=== PATIENT | male | born 1935 | race Caucasian/White ===

== ENCOUNTER 2017-01-12 10:54 | Inpatient (IN) | payer MEDICARE, BC ==
[2017-01-12] MEDS: Acetaminophen 500 MG Tab PO PRN (17:09)
--- NOTE | 2017-01-12 18:28 | PCM.HP ---
H&P History of Present Illness - General Date of Service: 01/12/17 Admit Problem/Dx: Admission Diagnosis/Problem Admission Diagnosis/Problem Weakness Source of Information: Patient, Old Records History Limitations: Reports: No Limitations - History of Present Illness Initial Comments - Free Text/Narative: This is an 81-year-old male patient was transferred down from [facility] due to MRSA in his left hip and blood. He's here for IV antibiotics and PT/OT. Apparently he was admitted at [facility] and transferred to [place]. A lucent areas on the left hip. During his hospitalization he had hematuria that 's resolved as of 2 days ago. He says he is doing better. He denies fevers, chills, chest pain, shortness of breath. He has some left hip pain. He says he has not been up in 5 days. Pain Pain Score (Numeric/FACES): 3 - Related Data Allergies/Adverse Reactions: Allergies Allergy/AdvReac Type Severity Reaction Status Date / Time No Known Allergies Allergy Verified 01/12/17 13:21 Home Medications: Home Meds Allopurinol [Zyloprim] 300 mg PO DAILY 01/12/17 [History] Aspirin [Halfprin] 81 mg PO DAILY 01/12/17 [History] Digoxin 250 mcg PO SUTUTHSA 01/12/17 [History] Digoxin 375 mcg PO MOWEFR 01/12/17 [History] Finasteride 5 mg PO DAILY 01/12/17 [History] Hydrochlorothiazide 50 mg PO DAILY 01/12/17 [History] Lisinopril [Prinivil] 40 mg PO DAILY 01/12/17 [History] Metoprolol Succinate [Toprol Xl] 100 mg PO DAILY 01/12/17 [History] Simvastatin [Zocor] 40 mg PO DAILY 01/12/17 [History] Terazosin [Hytrin] 5 mg PO BEDTIME 01/12/17 [History] Past Medical History HEENT History: Reports: Hard of Hearing Cardiovascular History: Reports: Afib, Heart Failure Genitourinary History: Reports: BPH Musculoskeletal History: Reports: Arthritis Endocrine/Metabolic History: Reports: Obesity/BMI 30+ Hematologic History: Reports: Blood Transfusion(s) - Infectious Disease History Infectious Disease History: Reports: Chicken Pox, Measles, Mumps - Past Surgical History HEENT Surgical History: Reports: Cataract Surgery Cardiovascular Surgical History: Reports: Other (See Below) Other Cardiovascular Surgeries/Procedures: Stent Musculoskeletal Surgical History: Reports: Hip Replacement, Shoulder Replacement Social & Family History - Family History Family Medical History: Noncontributory - Tobacco Use Smoking Status *Q: Former Smoker Used Tobacco, but Quit: Yes Month Tobacco Last Used: 30 years ago Second Hand Smoke Exposure: No - Caffeine Use Caffeine Use: Reports: Coffee - Recreational Drug Use Recreational Drug Use: No H&P Review of Systems - Review of Systems: Review Of Systems: See Below General: Reports: No Symptoms HEENT: Reports: No Symptoms Pulmonary: Reports: No Symptoms Cardiovascular: Reports: No Symptoms Gastrointestinal: Reports: No Symptoms Genitourinary: Reports: Hematuria. Denies: Dysuria, Frequency Musculoskeletal: Reports: Joint Swelling Skin: Reports: No Symptoms Psychiatric: Reports: No Symptoms Hematologic/Lymphatic: Reports: No Symptoms Immunologic: Reports: No Symptoms Exam - Exam Exam: See Below - Vital Signs Vital Signs: Last Vital Signs Temp 98.1 F 01/12/17 13:00 Pulse 82 01/12/17 13:00 Resp 18 01/12/17 13:00 BP 122/71 01/12/17 13:00 Pulse Ox 92 L 01/12/17 13:00 Weight: 226 lb - Exam General: Alert, Oriented, Cooperative HEENT: PERRLA, Posterior Pharynx Clear, TMs Clear Neck: Supple, Trachea Midline Lungs: Clear to Auscultation, Normal Respiratory Effort Cardiovascular: Regular Rate, Regular Rhythm, Normal S1, Normal S2. No: Irregular Rhythm, Systolic Murmur, Diastolic Murmur GI/Abdominal Exam: Normal Bowel Sounds, Soft, Non-Tender, No Organomegaly, No Distention, No Abnormal Bruit, No Mass Back Exam: Normal Inspection, Full Range of Motion Extremities: Normal Inspection, No Pedal Edema Skin: Warm, Dry, Intact. No: Rash, Petechia, Ecchymosis Neuro Extensive - Mental Status: Alert, Oriented x3, Normal Mood/Affect, Normal Cognition, Memory Intact Neuro Extensive - Motor, Sensory, Reflexes: No: Normal Gait Psychiatric: Alert, Normal Affect, Normal Mood *Q Meaningful Use (ADM) - VTE *Q VTE Criteria *Q: - Stroke *Q Stroke Criteria *Q: - AMI *Q AMI Criteria *Q: - Problem List (1) Prosthetic joint infection SNOMED Code(s): 468481025 ICD Code: T84.50XA - INFECT/INFLM REACTION DUE TO UNSP INT JOINT PROSTH, INIT Status: Acute Current Visit: Yes (2) Hematuria SNOMED Code(s): 18915261 ICD Code: R31.9 - HEMATURIA, UNSPECIFIED Status: Acute Current Visit: Yes (3) Atrial fibrillation SNOMED Code(s): 31794135 ICD Code: I48.91 - UNSPECIFIED ATRIAL FIBRILLATION Status: Acute Current Visit: Yes (4) Palliative care status SNOMED Code(s): 530016763 ICD Code: Z51.5 - ENCOUNTER FOR PALLIATIVE CARE Status: Acute Current Visit: Yes (5) MRSA (methicillin resistant Staphylococcus aureus) SNOMED Code(s): 058099241 ICD Code: A49.02 - METHICILLIN RESIS STAPH INFECTION, UNSP SITE Status: Acute Current Visit: Yes Problem List Initiated/Reviewed/Updated: Yes Orders Last 24hrs: Active Orders 24 hr Category Date Time Status Patient Status [ADT] Routine ADT 01/12/17 10:57 Active Up ad Loretta [RC] ASDIRECTED Care 01/12/17 14:03 Active OT Evaluation and Treatment [CONS] Routine Cons 01/12/17 10:57 Active PT Evaluation and Treatment [CONS] Routine Cons 01/12/17 10:57 Active Low Sodium [Sodium Restricted Diet] [DIET] Diet 01/12/17 Dinner Active CBC WITH AUTO DIFF [HEME] WEEKLY Lab 02/05/17 06:00 Ordered CBC WITH AUTO DIFF [HEME] WEEKLY Lab 01/15/17 06:00 Ordered CBC WITH AUTO DIFF [HEME] WEEKLY Lab 01/22/17 06:00 Ordered CBC WITH AUTO DIFF [HEME] WEEKLY Lab 01/29/17 06:00 Ordered CREATINE KINASE,CK [CHEM] WEEKLY Lab 02/05/17 06:00 Ordered CREATINE KINASE,CK [CHEM] WEEKLY Lab 01/15/17 06:00 Ordered CREATINE KINASE,CK [CHEM] WEEKLY Lab 01/22/17 06:00 Ordered CREATINE KINASE,CK [CHEM] WEEKLY Lab 01/29/17 06:00 Ordered CREATININE W/GFR [CHEM] WEEKLY Lab 02/05/17 06:00 Ordered CREATININE W/GFR [CHEM] WEEKLY Lab 01/15/17 06:00 Ordered CREATININE W/GFR [CHEM] WEEKLY Lab 01/22/17 06:00 Ordered CREATININE W/GFR [CHEM] WEEKLY Lab 01/29/17 06:00 Ordered CRP [C-REACTIVE PROTEIN] [CHEM] WEEKLY Lab 02/05/17 06:00 Ordered CRP [C-REACTIVE PROTEIN] [CHEM] WEEKLY Lab 01/15/17 06:00 Ordered CRP [C-REACTIVE PROTEIN] [CHEM] WEEKLY Lab 01/22/17 06:00 Ordered CRP [C-REACTIVE PROTEIN] [CHEM] WEEKLY Lab 01/29/17 06:00 Ordered Acetaminophen [Tylenol Extra Strength] Med 01/12/17 16:46 Active 1,000 mg PO Q8H PRN Allopurinol [Zyloprim] Med 01/13/17 09:00 Active 300 mg PO DAILY Aspirin [Halfprin] Med 01/13/17 09:00 Active 81 mg PO DAILY DAPTOmycin [Cubicin] 625 mg Med 01/13/17 09:00 Active Sodium Chloride 0.9% [Normal Saline] 12.5 ml IVPUSH Q24H Digoxin [Lanoxin] Med 01/13/17 09:00 Active 250 mcg PO SuTuThSa@0900 Digoxin [Lanoxin] Med 01/15/17 09:00 Active 375 mcg PO MoWeFr@0900 Finasteride [Proscar] Med 01/13/17 09:00 Active 5 mg PO DAILY Heparin Sodium [Heparin Lock Flush 100 Units/ML] Med 01/12/17 21:15 Active 300 units FLUSH BID Heparin Sodium [Heparin Lock Flush 100 Units/ML] Med 01/12/17 21:15 Active 300 units FLUSH BID Hydrochlorothiazide Med 01/13/17 09:00 Active 50 mg PO DAILY Lisinopril [Prinivil] Med 01/13/17 09:00 Active 40 mg PO DAILY Metoprolol Succinate [Toprol XL] Med 01/13/17 09:00 Active 100 mg PO DAILY Terazosin [Hytrin] Med 01/12/17 21:00 Active 5 mg PO BEDTIME Code Status [Resuscitation Status] Routine Resus Stat 01/12/17 13:26 Ordered Medication Orders Acetaminophen (Tylenol Extra Strength) 1,000 mg PO Q8H PRN PRN Reason: Pain Last Admin: 01/12/17 17:09 Dose: 1,000 mg Allopurinol (Zyloprim) 300 mg PO DAILY [facility] Aspirin (Halfprin) 81 mg PO DAILY [facility] Digoxin (Lanoxin) 250 mcg PO SuTuThSa@0900 [facility] Digoxin (Lanoxin) 375 mcg PO MoWeFr@0900 [facility] Finasteride (Proscar) 5 mg PO DAILY [facility] Heparin Sodium (Porcine) (Heparin Lock Flush 100 Units/Ml) 300 units FLUSH BID [facility] Heparin Sodium (Porcine) (Heparin Lock Flush 100 Units/Ml) 300 units FLUSH BID [facility] Hydrochlorothiazide (Hydrochlorothiazide) 50 mg PO DAILY [facility] Daptomycin 625 mg/ Sodium (Chloride) 12.5 mls @ 325 mls/hr IVPUSH Q24H [facility] Stop: 02/05/17 11:00 Lisinopril (Prinivil) 40 mg PO DAILY [facility] Metoprolol Succinate (Toprol Xl) 100 mg PO DAILY [facility] Terazosin HCl (Hytrin) 5 mg PO BEDTIME [facility] Assessment/Plan Comment:: 1. Patient admitted for swing bed. 2. IV antibiotics per infectious disease. 3. PT/OT. 4. Continue current medications. 5. Up with assist. 6. Regular diet. Next I 7. Hold anticoagulation secondary to hematuria. 8. Recheck CBC in the a.m.
[2017-01-12] MEDS: Terazosin 5 MG Cap PO SCH (20:27)
[2017-01-12] MEDS ORDERED: Simvastatin 20 MG Tab PO SCH (21:00)
[2017-01-13] MEDS: Acetaminophen 500 MG Tab PO PRN ×2 (07:57→14:31)
[2017-01-13] MEDS: Metoprolol Succinate 100 MG Tab.ER PO SCH (08:00)
[2017-01-13] MEDS: Allopurinol 300 MG Tab PO SCH (08:00)
[2017-01-13] MEDS: Hydrochlorothiazide 25 MG Tab PO SCH (08:00)
[2017-01-13] MEDS: Digoxin 250 MCG Tab PO SCH (08:02)
[2017-01-13] MEDS: Finasteride 5 MG Tab PO SCH (08:02)
[2017-01-13] MEDS: Aspirin 81 MG Tab.EC PO SCH (08:03)
[2017-01-13] MEDS: SODIUM CHLORIDE 0.9% IVPUSH SCH (08:20)
[2017-01-13] MEDS: DAPTOMYCIN IVPUSH SCH (08:20)
[2017-01-13] MEDS: Terazosin 5 MG Cap PO SCH (20:08)
[2017-01-14] MEDS: Acetaminophen 500 MG Tab PO PRN ×3 (09:20→23:28)
[2017-01-14] MEDS: SODIUM CHLORIDE 0.9% IVPUSH SCH (09:55)
[2017-01-14] MEDS: DAPTOMYCIN IVPUSH SCH (09:55)
[2017-01-14] MEDS: Hydrochlorothiazide 25 MG Tab PO SCH (09:57)
[2017-01-14] MEDS: Finasteride 5 MG Tab PO SCH (09:57)
[2017-01-14] MEDS: Digoxin 250 MCG Tab PO SCH (09:57)
[2017-01-14] MEDS: Allopurinol 300 MG Tab PO SCH (09:57)
[2017-01-14] MEDS: Aspirin 81 MG Tab.EC PO SCH (09:57)
[2017-01-14] MEDS: Metoprolol Succinate 100 MG Tab.ER PO SCH (09:59)
[2017-01-14] MEDS: Terazosin 5 MG Cap PO SCH (20:15)
[2017-01-15] MEDS: Sodium Chloride 0.9% 10 ML Syringe FLUSH PRN (06:41)
[2017-01-15] MEDS: Acetaminophen 500 MG Tab PO PRN ×2 (08:51→17:06)
[2017-01-15] MEDS: Allopurinol 300 MG Tab PO SCH (08:57)
[2017-01-15] MEDS: Metoprolol Succinate 100 MG Tab.ER PO SCH (08:57)
[2017-01-15] MEDS: Digoxin 125 MCG Tab PO SCH (08:58)
[2017-01-15] MEDS: Aspirin 81 MG Tab.EC PO SCH (08:58)
[2017-01-15] MEDS: Hydrochlorothiazide 25 MG Tab PO SCH (08:58)
[2017-01-15] MEDS: Finasteride 5 MG Tab PO SCH (09:08)
[2017-01-15] MEDS: DAPTOMYCIN IVPUSH SCH (09:45)
[2017-01-15] MEDS: SODIUM CHLORIDE 0.9% IVPUSH SCH (09:45)
[2017-01-15] MEDS: Terazosin 5 MG Cap PO SCH (21:24)
[2017-01-16] MEDS: Acetaminophen 500 MG Tab PO PRN (09:08)
[2017-01-16] MEDS: Digoxin 250 MCG Tab PO SCH (09:09)
[2017-01-16] MEDS: Finasteride 5 MG Tab PO SCH (09:09)
[2017-01-16] MEDS: Hydrochlorothiazide 25 MG Tab PO SCH (09:09)
[2017-01-16] MEDS: Aspirin 81 MG Tab.EC PO SCH (09:10)
[2017-01-16] MEDS: Allopurinol 300 MG Tab PO SCH (09:10)
[2017-01-16] MEDS: Metoprolol Succinate 100 MG Tab.ER PO SCH (09:10)
[2017-01-16] MEDS: SODIUM CHLORIDE 0.9% IVPUSH SCH (09:20)
[2017-01-16] MEDS: DAPTOMYCIN IVPUSH SCH (09:20)
[2017-01-16] MEDS: Terazosin 5 MG Cap PO SCH (20:22)
[2017-01-17] MEDS: Acetaminophen 500 MG Tab PO PRN (08:28)
[2017-01-17] MEDS: Allopurinol 300 MG Tab PO SCH (08:29)
[2017-01-17] MEDS: Digoxin 125 MCG Tab PO SCH (08:29)
[2017-01-17] MEDS: Metoprolol Succinate 100 MG Tab.ER PO SCH (08:30)
[2017-01-17] MEDS: Finasteride 5 MG Tab PO SCH (08:30)
[2017-01-17] MEDS: Aspirin 81 MG Tab.EC PO SCH (08:30)
[2017-01-17] MEDS: Hydrochlorothiazide 25 MG Tab PO SCH (08:31)
[2017-01-17] MEDS: SODIUM CHLORIDE 0.9% IVPUSH SCH (09:00)
[2017-01-17] MEDS: DAPTOMYCIN IVPUSH SCH (09:00)
[2017-01-17] MEDS: Sodium Chloride 0.9% 10 ML Syringe FLUSH PRN (20:45)
[2017-01-17] MEDS: Terazosin 5 MG Cap PO SCH (20:50)
[2017-01-18] MEDS: Digoxin 250 MCG Tab PO SCH (08:25)
[2017-01-18] MEDS: Metoprolol Succinate 100 MG Tab.ER PO SCH (08:25)
[2017-01-18] MEDS: Aspirin 81 MG Tab.EC PO SCH (08:25)
[2017-01-18] MEDS: Hydrochlorothiazide 25 MG Tab PO SCH (08:26)
[2017-01-18] MEDS: Allopurinol 300 MG Tab PO SCH (08:26)
[2017-01-18] MEDS: Finasteride 5 MG Tab PO SCH (08:26)
[2017-01-18] MEDS: DAPTOMYCIN IVPUSH SCH (09:22)
[2017-01-18] MEDS: SODIUM CHLORIDE 0.9% IVPUSH SCH (09:22)
[2017-01-18] MEDS: Acetaminophen 500 MG Tab PO PRN (09:30)
[2017-01-18] MEDS: Terazosin 5 MG Cap PO SCH (20:54)
[2017-01-19] MEDS: Hydrochlorothiazide 25 MG Tab PO SCH (08:51)
[2017-01-19] MEDS: Aspirin 81 MG Tab.EC PO SCH (08:51)
[2017-01-19] MEDS: Digoxin 125 MCG Tab PO SCH (08:52)
[2017-01-19] MEDS: Metoprolol Succinate 100 MG Tab.ER PO SCH (08:54)
[2017-01-19] MEDS: Finasteride 5 MG Tab PO SCH (08:54)
[2017-01-19] MEDS: Allopurinol 300 MG Tab PO SCH (08:55)
[2017-01-19] MEDS: DAPTOMYCIN IVPUSH SCH (09:19)
[2017-01-19] MEDS: SODIUM CHLORIDE 0.9% IVPUSH SCH (09:19)
--- NOTE | 2017-01-19 11:16 | PN ---
DATE SEEN: 01/19/2017 SUBJECTIVE: eBka Fontenot is a young man, 85 years of age, seen today for review. Lives in [place]. Had a complicated septic left hip. On antibiotic therapies just once per day. Daptomycin 625 q.24 hours. Other medications reviewed and appropriate. Doing reasonably well. Pain is controlled. PT/OT actively involved. LABORATORY STUDIES: Hemoglobin 7.5 and 8.0, 01/15, we will recheck hemoglobin today. Kidney function otherwise satisfactory. C-reactive protein of 8. OBJECTIVE: VITAL SIGNS: 95.7 kg, 37 degrees centigrade, O2 saturation 95%, blood pressure 112/70. GENERAL: In good spirits. NECK: Benign. Thyroid small. CHEST: Clear. HEART: Regular. ABDOMEN: Benign. ASSESSMENT: Septic left hip. PLAN: Medications, care and treatment appropriate, recheck hemoglobin, timing appropriate care. /[id number] MILLER/IZA
[2017-01-19] MEDS: Terazosin 5 MG Cap PO SCH (20:40)
[2017-01-19] MEDS: Acetaminophen 500 MG Tab PO PRN (20:57)
[2017-01-20] MEDS: Aspirin 81 MG Tab.EC PO SCH (08:11)
[2017-01-20] MEDS: Hydrochlorothiazide 25 MG Tab PO SCH (08:11)
[2017-01-20] MEDS: Digoxin 250 MCG Tab PO SCH (08:12)
[2017-01-20] MEDS: Metoprolol Succinate 100 MG Tab.ER PO SCH (08:13)
[2017-01-20] MEDS: Finasteride 5 MG Tab PO SCH (08:13)
[2017-01-20] MEDS: Allopurinol 300 MG Tab PO SCH (08:14)
[2017-01-20] MEDS: SODIUM CHLORIDE 0.9% IVPUSH SCH (09:32)
[2017-01-20] MEDS: DAPTOMYCIN IVPUSH SCH (09:32)
--- NOTE | 2017-01-20 12:05 | PN ---
DATE SEEN: 01/20/2017 SUBJECTIVE: Beka Fontenot is an 81-year-old male, seen today for review. Has a complicated septic left hip joint. Present therapy includes daptomycin 625 mg q.24 hours. Adamant that staying here is his right choice. Pain is controlled. Ambulation has been good. LABORATORY STUDIES: Hemoglobin has risen from 7.5 to 8.8, indices otherwise satisfactory. OBJECTIVE: VITAL SIGNS: 36.7 degrees Fahrenheit, pulse 104, blood pressure 101/64, 16 is the respiration, O2 saturation 95%. CHEST: Clear. HEART: Regular. ABDOMEN: Benign. MUSCULOSKELETAL: Septic left hip joint. PLAN: Medications, care and treatment appropriate, home discharge under consideration. /[id number] MILLER/IZA
[2017-01-20] MEDS: Acetaminophen 500 MG Tab PO PRN ×2 (12:57→21:14)
[2017-01-20] MEDS: Terazosin 5 MG Cap PO SCH (21:11)
[2017-01-21] MEDS: Acetaminophen 500 MG Tab PO PRN ×2 (05:49→20:44)
[2017-01-21] MEDS: Aspirin 81 MG Tab.EC PO SCH (09:15)
[2017-01-21] MEDS: Hydrochlorothiazide 25 MG Tab PO SCH (09:17)
[2017-01-21] MEDS: Digoxin 250 MCG Tab PO SCH (09:17)
[2017-01-21] MEDS: Finasteride 5 MG Tab PO SCH (09:19)
[2017-01-21] MEDS: Metoprolol Succinate 100 MG Tab.ER PO SCH (09:20)
[2017-01-21] MEDS: Allopurinol 300 MG Tab PO SCH (09:20)
[2017-01-21] MEDS: SODIUM CHLORIDE 0.9% IVPUSH SCH (09:52)
[2017-01-21] MEDS: DAPTOMYCIN IVPUSH SCH (09:52)
--- NOTE | 2017-01-21 13:58 | PN ---
DATE SEEN: 01/21/2017 SUBJECTIVE: Beka Fontenot is an 81-year-old male admitted with sepsis. Remote left hip arthroplasty, had sepsis present. In for long-term antibiotic therapy. His present daptomycin 625 mg q.24 hours. Pain is controlled. Ambulation has been comfortable. Hemoglobin has risen steadily from 7.5 to 8 to 8.8. C-reactive protein, moderately elevated. Otherwise in good spirits. OBJECTIVE: VITAL SIGNS: 36.5, 113/59, 83 is the pulse, 16 is the respiration, O2 saturation 97%. GENERAL: Cooperative, conversant, in good spirits. NECK: Benign. Thyroid small. CHEST: Clear in all lung [place]. HEART: Regular without ectopy or murmur. ABDOMEN: Benign. EXTREMITIES: No pathology of left hip. ASSESSMENT: Infected left hip prosthesis. PLAN: Medications, care and treatment appropriate, IV antibiotics once per day. Home care and options given under consideration. /[id number] MILLER/IZA
[2017-01-21] MEDS: Terazosin 5 MG Cap PO SCH (20:40)
[2017-01-22] MEDS: Acetaminophen 500 MG Tab PO PRN (04:24)
[2017-01-22] MEDS: Sodium Chloride 0.9% 10 ML Syringe FLUSH PRN (07:08)
[2017-01-22] MEDS: DAPTOMYCIN IVPUSH SCH (09:39)
[2017-01-22] MEDS: SODIUM CHLORIDE 0.9% IVPUSH SCH (09:39)
[2017-01-22] MEDS: Hydrochlorothiazide 25 MG Tab PO SCH (09:40)
[2017-01-22] MEDS: Digoxin 125 MCG Tab PO SCH (09:40)
[2017-01-22] MEDS: Allopurinol 300 MG Tab PO SCH (09:41)
[2017-01-22] MEDS: Metoprolol Succinate 100 MG Tab.ER PO SCH (09:41)
[2017-01-22] MEDS: Aspirin 81 MG Tab.EC PO SCH (09:41)
[2017-01-22] MEDS: Finasteride 5 MG Tab PO SCH (09:42)
--- NOTE | 2017-01-22 11:42 | PN ---
DATE SEEN: 01/22/2017 SUBJECTIVE: Beka Fontenot is an 81-year-old male, on antibiotic therapy for MRSA. Timeframe: February 05. Lengthy discussion, geriatric social worker involved, about other alternatives. One dose of IV antibiotics. The patient is reluctant to consider otherwise. Of interest, hemoglobin, which had been trending upward 7.5, 8, 8, 8, now 7.6. Workup will be planned accordingly including iron, iron-binding capacity, protein electrophoresis, reticulocyte count. CRP has wandered downward from 8.2 to 5.6. PHYSICAL EXAMINATION: GENERAL: In good spirits. NECK: Benign. Thyroid small. CHEST: Clear. HEART: Regular. ABDOMEN: Benign. EXTREMITIES: No particular tenderness over the left hip. ASSESSMENT: Infected left hip joint. PLAN: Medications as appropriate, complementary care and well being. Workup of his anemia planned. /[id number] MILLER/IZA
[2017-01-22] MEDS: Terazosin 5 MG Cap PO SCH (21:23)
--- NOTE | 2017-01-23 15:52 | PN ---
DATE SEEN: 01/23/2017 SUBJECTIVE: Beka Fontenot is an 81-year-old male, in swing bed for intervention of complicated left hip infection, MRSA by report. Presently on daptomycin 625 mg q.6 hours. Had a visit with Orthopedics today, surgery upcoming and planned, expert from [place] coming up. Anemia still under observation; 7.5, 8, and 7.6. Diagnostic studies, i.e. serum iron, TIBC, reticulocyte count, serum protein electrophoresis, B12 and folate are pending. We will proceed accordingly, transfusion is under consideration. PLAN: Plan is for discharge and outpatient care with antibiotics under consideration as available. /[id number] MILLER/IZA
[2017-01-23] MEDS: SODIUM CHLORIDE 0.9% IVPUSH SCH (18:58)
[2017-01-23] MEDS: DAPTOMYCIN IVPUSH SCH (18:58)
[2017-01-23] MEDS: Hydrochlorothiazide 25 MG Tab PO SCH (18:59)
[2017-01-23] MEDS: Digoxin 250 MCG Tab PO SCH (18:59)
[2017-01-23] MEDS: Aspirin 81 MG Tab.EC PO SCH (18:59)
[2017-01-23] MEDS: Finasteride 5 MG Tab PO SCH (19:00)
[2017-01-23] MEDS: Allopurinol 300 MG Tab PO SCH (19:00)
[2017-01-23] MEDS: Metoprolol Succinate 100 MG Tab.ER PO SCH (19:00)
[2017-01-23] MEDS: Terazosin 5 MG Cap PO SCH (20:33)
[2017-01-24] MEDS: Sodium Chloride 0.9% 10 ML Syringe FLUSH PRN ×5 (08:49→12:11)
[2017-01-24] MEDS: DAPTOMYCIN IVPUSH SCH (08:49)
[2017-01-24] MEDS: SODIUM CHLORIDE 0.9% IVPUSH SCH (08:49)
[2017-01-24] MEDS: Hydrochlorothiazide 25 MG Tab PO SCH (09:00)
[2017-01-24] MEDS: Digoxin 125 MCG Tab PO SCH (09:00)
[2017-01-24] MEDS: Aspirin 81 MG Tab.EC PO SCH (09:00)
[2017-01-24] MEDS: Metoprolol Succinate 100 MG Tab.ER PO SCH (09:01)
[2017-01-24] MEDS: Finasteride 5 MG Tab PO SCH (09:01)
[2017-01-24] MEDS: Allopurinol 300 MG Tab PO SCH (09:02)
[2017-01-24] MEDS: Acetaminophen 500 MG Tab PO PRN (09:04)
[2017-01-24] MEDS ORDERED: Sodium Chloride 0.9% 250 ML IV SCH ×2 (10:30)
[2017-01-24] MEDS ORDERED: Furosemide 20 MG/2 ML VIAL IVPUSH ONE (10:45)
--- NOTE | 2017-01-24 14:38 | PN ---
DATE SEEN: 01/24/2017 Beka Fontenot is a young man, 85 years of age seen today for review. On prolonged antibiotic therapy of daptomycin 625 q.24 hours. Upon review, flushing of his port required b.i.d. indicating potential to call and to be cared for accordingly. Continue with present therapy. Anemia 7.6, had been 8.8. A workup for anemia in process. Laboratory studies were sent. In the mean time, we will give him 2 units of red blood cells, cooperative care and well being. Should do well in that regard. Recheck hemoglobin in the morning. IV Lasix between doses. /[id number] MILLER/IZA
[2017-01-24 17:06] LABS: UNSATURATED IRON BIND CAPACITY 161 ug/dL (112-347)
[2017-01-24] MEDS: Terazosin 5 MG Cap PO SCH (20:25)
[2017-01-25] MEDS: Sodium Chloride 0.9% 10 ML Syringe FLUSH PRN (06:26)
[2017-01-25] MEDS: Hydrochlorothiazide 25 MG Tab PO SCH (08:36)
[2017-01-25] MEDS: Aspirin 81 MG Tab.EC PO SCH (08:36)
[2017-01-25] MEDS: Digoxin 250 MCG Tab PO SCH (08:37)
[2017-01-25] MEDS: Metoprolol Succinate 100 MG Tab.ER PO SCH (08:37)
[2017-01-25] MEDS: Finasteride 5 MG Tab PO SCH (08:37)
[2017-01-25] MEDS: Allopurinol 300 MG Tab PO SCH (08:38)
[2017-01-25] MEDS: SODIUM CHLORIDE 0.9% IVPUSH SCH (10:01)
[2017-01-25] MEDS: DAPTOMYCIN IVPUSH SCH (10:01)
--- NOTE | 2017-01-25 11:46 | PN ---
DATE SEEN: 01/25/2017 SUBJECTIVE: Beka Fontenot is an 81-year-old male, in swing bed. He had a complicated MRSA infection of his left hip. Neurologic intervention, clot and sepsis noted. Hemoglobin fell from 7.5 to 8.8 to 7.6, transfused today; yesterday, wily to 8.7. Iron studies revealed low iron, normal B12, and no complicating issues. Doing otherwise well. He has had some intermittent nosebleeds. He is presently on heparin only for flush. Coagulation studies will be performed. He will start on ferrous gluconate 324 one p.o. t.i.d., complementary care and well being proceed accordingly. /[id number] MILLER/IZA
[2017-01-25] MEDS: Ferrous Gluconate 324 MG Tab PO SCH ×2 (13:47→20:22)
[2017-01-25] MEDS: Aloe Vera/Sodium Chloride Gel 14.1 GM Tube NAS PRN (16:27)
[2017-01-25] MEDS: Terazosin 5 MG Cap PO SCH (20:24)
[2017-01-26] MEDS: Aspirin 81 MG Tab.EC PO SCH (08:00)
[2017-01-26] MEDS: Ferrous Gluconate 324 MG Tab PO SCH ×2 (08:00→13:28)
[2017-01-26] MEDS: Metoprolol Succinate 100 MG Tab.ER PO SCH (08:01)
[2017-01-26] MEDS: Finasteride 5 MG Tab PO SCH (08:01)
[2017-01-26] MEDS: Hydrochlorothiazide 25 MG Tab PO SCH (08:01)
[2017-01-26] MEDS: Digoxin 125 MCG Tab PO SCH (08:01)
[2017-01-26] MEDS: Allopurinol 300 MG Tab PO SCH (08:02)
[2017-01-26] MEDS: Aloe Vera/Sodium Chloride Gel 14.1 GM Tube NAS PRN ×2 (08:08→11:59)
[2017-01-26] MEDS: Sodium Chloride 0.9% 10 ML Syringe FLUSH PRN (09:14)
[2017-01-26] MEDS: DAPTOMYCIN IVPUSH SCH (09:15)
[2017-01-26] MEDS: SODIUM CHLORIDE 0.9% IVPUSH SCH (09:15)
[2017-01-26] MEDS: Ferrous Sulfate 325 MG Tab PO SCH (21:18)
[2017-01-26] MEDS: Terazosin 5 MG Cap PO SCH (21:19)
[2017-01-27] MEDS: Finasteride 5 MG Tab PO SCH (09:32)
[2017-01-27] MEDS: Metoprolol Succinate 100 MG Tab.ER PO SCH (09:32)
[2017-01-27] MEDS: Aspirin 81 MG Tab.EC PO SCH (09:32)
[2017-01-27] MEDS: Hydrochlorothiazide 25 MG Tab PO SCH (09:34)
[2017-01-27] MEDS: Ferrous Sulfate 325 MG Tab PO SCH ×3 (09:34→21:42)
[2017-01-27] MEDS: Digoxin 250 MCG Tab PO SCH (09:34)
[2017-01-27] MEDS: Allopurinol 300 MG Tab PO SCH (09:35)
--- NOTE | 2017-01-27 09:44 | PCM.PRNOTE ---
- Free Text/Narrative Note: Mr. Joel had frequent nosebleeds over the last 2 days. I determined that the left nostril was was a note determine the exact area location. I discussed asked treatment options and suggested a Rhino Rocket he accepted the risks and benefits and this was placed with some inflammation with minimal difficulty. Is on antibiotics therefore no need for any extra antibiotics. I'll try nasal spray Afrin to help keep it moisturized and he also needs a stool softener.
[2017-01-27] MEDS: Sodium Chloride 0.9% 10 ML Syringe FLUSH PRN ×3 (09:47→09:52)
[2017-01-27] MEDS: DAPTOMYCIN IVPUSH SCH (09:49)
[2017-01-27] MEDS: SODIUM CHLORIDE 0.9% IVPUSH SCH (09:49)
[2017-01-27] MEDS: Oxymetazoline 0.05% Nasal Spray 15 ML Bottle NAS SCH (10:11)
[2017-01-27] MEDS: Bisacodyl 5 MG Tab PO PRN (12:55)
[2017-01-27] MEDS: Acetaminophen 500 MG Tab PO PRN (17:14)
[2017-01-27] MEDS: Terazosin 5 MG Cap PO SCH (21:44)
[2017-01-28] MEDS: Oxymetazoline 0.05% Nasal Spray 15 ML Bottle NAS SCH (08:17)
[2017-01-28] MEDS: Aspirin 81 MG Tab.EC PO SCH (08:18)
[2017-01-28] MEDS: Digoxin 250 MCG Tab PO SCH (08:18)
[2017-01-28] MEDS: Hydrochlorothiazide 25 MG Tab PO SCH (08:18)
[2017-01-28] MEDS: Ferrous Sulfate 325 MG Tab PO SCH ×3 (08:18→21:14)
[2017-01-28] MEDS: Metoprolol Succinate 100 MG Tab.ER PO SCH (08:19)
[2017-01-28] MEDS: Allopurinol 300 MG Tab PO SCH (08:19)
[2017-01-28] MEDS: Finasteride 5 MG Tab PO SCH (08:20)
[2017-01-28] MEDS: Sodium Chloride 0.9% 10 ML Syringe FLUSH PRN ×2 (08:24→08:25)
[2017-01-28] MEDS: DAPTOMYCIN IVPUSH SCH (08:25)
[2017-01-28] MEDS: SODIUM CHLORIDE 0.9% IVPUSH SCH (08:25)
[2017-01-28] MEDS: Acetaminophen 500 MG Tab PO PRN (09:17)
[2017-01-28] MEDS: Bisacodyl 5 MG Tab PO PRN (14:42)
[2017-01-28] MEDS: Terazosin 5 MG Cap PO SCH (21:15)
[2017-01-29] MEDS: Sodium Chloride 0.9% 10 ML Syringe FLUSH PRN ×2 (08:40→08:46)
[2017-01-29] MEDS: SODIUM CHLORIDE 0.9% IVPUSH SCH (08:46)
[2017-01-29] MEDS: DAPTOMYCIN IVPUSH SCH (08:46)
[2017-01-29] MEDS: Oxymetazoline 0.05% Nasal Spray 15 ML Bottle NAS SCH (08:50)
[2017-01-29] MEDS: Metoprolol Succinate 100 MG Tab.ER PO SCH (08:54)
[2017-01-29] MEDS: Ferrous Sulfate 325 MG Tab PO SCH ×3 (08:54→20:50)
[2017-01-29] MEDS: Aspirin 81 MG Tab.EC PO SCH (08:55)
[2017-01-29] MEDS: Hydrochlorothiazide 25 MG Tab PO SCH (08:55)
[2017-01-29] MEDS: Digoxin 125 MCG Tab PO SCH (08:55)
[2017-01-29] MEDS: Allopurinol 300 MG Tab PO SCH (08:56)
[2017-01-29] MEDS: Finasteride 5 MG Tab PO SCH (08:56)
[2017-01-29] MEDS: Bisacodyl 5 MG Tab PO PRN (09:01)
[2017-01-29] MEDS: Acetaminophen 500 MG Tab PO PRN ×2 (09:01→17:25)
--- NOTE | 2017-01-29 14:43 | PCM.SN ---
- Free Text/Narrative Note: Ihad topack the nose again for persistent bleeding. I have also put the ASA on hold
[2017-01-29] MEDS: Terazosin 5 MG Cap PO SCH (20:50)
[2017-01-30] MEDS: Ferrous Sulfate 325 MG Tab PO SCH ×3 (08:20→20:22)
[2017-01-30] MEDS: Digoxin 250 MCG Tab PO SCH (08:21)
[2017-01-30] MEDS: Hydrochlorothiazide 25 MG Tab PO SCH (08:21)
[2017-01-30] MEDS: Finasteride 5 MG Tab PO SCH (08:22)
[2017-01-30] MEDS: Metoprolol Succinate 100 MG Tab.ER PO SCH (08:22)
[2017-01-30] MEDS: Allopurinol 300 MG Tab PO SCH (08:23)
[2017-01-30] MEDS: Sodium Chloride 0.65% Nasal Spray 45 ML Bottle NAS PRN (08:26)
[2017-01-30] MEDS: Acetaminophen 500 MG Tab PO PRN (08:30)
[2017-01-30] MEDS: Bisacodyl 5 MG Tab PO PRN (08:32)
[2017-01-30] MEDS: DAPTOMYCIN IVPUSH SCH (08:34)
[2017-01-30] MEDS: Sodium Chloride 0.9% 10 ML Syringe FLUSH PRN ×3 (08:34→16:02)
[2017-01-30] MEDS: SODIUM CHLORIDE 0.9% IVPUSH SCH (08:34)
[2017-01-30] MEDS: Terazosin 5 MG Cap PO SCH (20:23)
[2017-01-31] MEDS: Aloe Vera/Sodium Chloride Gel 14.1 GM Tube NAS PRN (08:25)
[2017-01-31] MEDS: Bisacodyl 5 MG Tab PO SCH (08:26)
[2017-01-31] MEDS: Ferrous Sulfate 325 MG Tab PO SCH ×3 (08:27→20:25)
[2017-01-31] MEDS: Digoxin 125 MCG Tab PO SCH (08:28)
[2017-01-31] MEDS: Hydrochlorothiazide 25 MG Tab PO SCH (08:28)
[2017-01-31] MEDS: Finasteride 5 MG Tab PO SCH (08:29)
[2017-01-31] MEDS: Allopurinol 300 MG Tab PO SCH (08:29)
[2017-01-31] MEDS: Acetaminophen 500 MG Tab PO PRN (08:35)
[2017-01-31] MEDS: Metoprolol Succinate 100 MG Tab.ER PO SCH (08:44)
[2017-01-31] MEDS: Sodium Chloride 0.9% 10 ML Syringe FLUSH PRN (08:45)
[2017-01-31] MEDS: SODIUM CHLORIDE 0.9% IVPUSH SCH (08:45)
[2017-01-31] MEDS: DAPTOMYCIN IVPUSH SCH (08:45)
[2017-01-31] MEDS: Sodium Chloride 0.65% Nasal Spray 45 ML Bottle NAS PRN (12:45)
[2017-01-31] MEDS: Terazosin 5 MG Cap PO SCH (20:25)
[2017-02-01] MEDS: Digoxin 250 MCG Tab PO SCH (08:27)
[2017-02-01] MEDS: Ferrous Sulfate 325 MG Tab PO SCH ×3 (08:27→20:19)
[2017-02-01] MEDS: Hydrochlorothiazide 25 MG Tab PO SCH (08:27)
[2017-02-01] MEDS: Bisacodyl 5 MG Tab PO SCH (08:27)
[2017-02-01] MEDS: Allopurinol 300 MG Tab PO SCH (08:28)
[2017-02-01] MEDS: Metoprolol Succinate 100 MG Tab.ER PO SCH (08:28)
[2017-02-01] MEDS: Finasteride 5 MG Tab PO SCH (08:28)
[2017-02-01] MEDS: SODIUM CHLORIDE 0.9% IVPUSH SCH (09:08)
[2017-02-01] MEDS: DAPTOMYCIN IVPUSH SCH (09:08)
[2017-02-01] MEDS: Sodium Chloride 0.9% 10 ML Syringe FLUSH PRN (09:08)
[2017-02-01] MEDS: Terazosin 5 MG Cap PO SCH (20:16)
[2017-02-02] MEDS: Sodium Chloride 0.9% 10 ML Syringe FLUSH PRN ×2 (08:50→08:55)
[2017-02-02] MEDS: DAPTOMYCIN IVPUSH SCH (08:53)
[2017-02-02] MEDS: SODIUM CHLORIDE 0.9% IVPUSH SCH (08:53)
[2017-02-02] MEDS: Bisacodyl 5 MG Tab PO SCH (08:54)
[2017-02-02] MEDS: Ferrous Sulfate 325 MG Tab PO SCH ×3 (08:55→20:43)
[2017-02-02] MEDS: Finasteride 5 MG Tab PO SCH (08:56)
[2017-02-02] MEDS: Hydrochlorothiazide 25 MG Tab PO SCH (08:57)
[2017-02-02] MEDS: Digoxin 125 MCG Tab PO SCH (08:57)
[2017-02-02] MEDS: Allopurinol 300 MG Tab PO SCH (08:59)
[2017-02-02] MEDS: Metoprolol Succinate 100 MG Tab.ER PO SCH (12:30)
[2017-02-02] MEDS: Acetaminophen 500 MG Tab PO PRN (12:34)
[2017-02-02] MEDS: Terazosin 5 MG Cap PO SCH (20:43)
[2017-02-03] MEDS: DAPTOMYCIN IVPUSH SCH (08:44)
[2017-02-03] MEDS: Finasteride 5 MG Tab PO SCH (08:44)
[2017-02-03] MEDS: SODIUM CHLORIDE 0.9% IVPUSH SCH (08:44)
[2017-02-03] MEDS: Ferrous Sulfate 325 MG Tab PO SCH ×3 (08:44→21:30)
[2017-02-03] MEDS: Allopurinol 300 MG Tab PO SCH (08:44)
[2017-02-03] MEDS: Digoxin 250 MCG Tab PO SCH (08:44)
[2017-02-03] MEDS: Bisacodyl 5 MG Tab PO SCH (08:45)
[2017-02-03] MEDS: Hydrochlorothiazide 25 MG Tab PO SCH (08:45)
[2017-02-03] MEDS: Metoprolol Succinate 100 MG Tab.ER PO SCH (08:47)
[2017-02-03] MEDS: Terazosin 5 MG Cap PO SCH (21:30)
[2017-02-04] MEDS: SODIUM CHLORIDE 0.9% IVPUSH SCH (09:13)
[2017-02-04] MEDS: DAPTOMYCIN IVPUSH SCH (09:13)
[2017-02-04] MEDS: Bisacodyl 5 MG Tab PO SCH (09:32)
[2017-02-04] MEDS: Ferrous Sulfate 325 MG Tab PO SCH ×3 (09:33→20:03)
[2017-02-04] MEDS: Finasteride 5 MG Tab PO SCH (09:33)
[2017-02-04] MEDS: Allopurinol 300 MG Tab PO SCH (09:33)
[2017-02-04] MEDS: Sodium Chloride 0.9% 10 ML Syringe FLUSH PRN (11:57)
[2017-02-04] MEDS ORDERED: Hydrochlorothiazide 25 MG Tab PO SCH (12:53)
[2017-02-04] MEDS: Digoxin 250 MCG Tab PO SCH (13:11)
[2017-02-04] MEDS: Metoprolol Succinate 100 MG Tab.ER PO SCH (13:12)
[2017-02-04] MEDS: Hydrochlorothiazide 25 MG Tab PO SCH ×2 (13:50→13:54)
[2017-02-04] MEDS: Lisinopril 10 MG Tab PO SCH (13:54)
[2017-02-05] MEDS: DAPTOMYCIN IVPUSH SCH (09:27)
[2017-02-05] MEDS: SODIUM CHLORIDE 0.9% IVPUSH SCH (09:27)
[2017-02-05] MEDS: Sodium Chloride 0.9% 10 ML Syringe FLUSH PRN (09:35)
[2017-02-05] MEDS: Ferrous Sulfate 325 MG Tab PO SCH ×2 (09:52→16:54)
[2017-02-05] MEDS: Bisacodyl 5 MG Tab PO SCH (09:52)
[2017-02-05] MEDS: Digoxin 125 MCG Tab PO SCH (09:54)
[2017-02-05] MEDS: Finasteride 5 MG Tab PO SCH (09:54)
[2017-02-05] MEDS: Allopurinol 300 MG Tab PO SCH (09:55)
[2017-02-05] MEDS: Metoprolol Succinate 100 MG Tab.ER PO SCH (11:54)
[2017-02-05] MEDS: Hydrochlorothiazide 25 MG Tab PO SCH (11:55)
[2017-02-05] MEDS: Lisinopril 10 MG Tab PO SCH (11:58)
--- NOTE | 2017-02-05 12:14 | PCM.DCSUM1 ---
Discharge Summary - Hospital Course HPI Initial Comments: Pleasant 81-year-old gentleman who was admitted to swing bed for continued IV antibiotic therapy due to MRSA bacteremia. He was receiving daptomycin through PICC line for total 2 weeks. Infectious disease in [place] has been monitoring his labs weekly and he has done quite well. He did require a blood transfusion as his hemoglobin dropped down to 7. He received 2 units which brought this up to 9 and is stabilized. He is in working with PT OT and is ambulating quite well using a wheeled walker. States he felt much better and denies pain in the hip knee and ankle calves low back or buttocks. His blood pressure had started to run low over the last couple of days but it was noted that he was down about 31 pounds since first hospitalization. I did cut his medications in half to been noted in the chart. He has done quite well with this. He's been asymptomatic the whole time. He has good oral intake good urine output and bowel movements. He's not had any fevers or chills, he denies nausea, he's had no vomiting, he denies headache lightheadedness or dizziness on standing he denies difficulty chewing or swallowing he denies any palpitations, chest pressure or pain, shoulder neck jaw or back pain, dyspnea with exertion, wheezing or productive cough. Tells me he is ready to go home as he misses his dog. He is sitting up in the bed unlabored breathing speak to me in complete sentences is alert oriented and very pleasant. His will be taking him home today. - Discharge Data Discharge Date: 02/05/17 Discharge Disposition: Home, W Home Health Agency 06 Condition: Good - Discharge Diagnosis/Problem(s) (1) MRSA bacteremia SNOMED Code(s): 50201961400193705 ICD Code: R78.81 - BACTEREMIA Status: Acute Priority: High Current Visit: Yes (2) Prosthetic joint infection SNOMED Code(s): 555071428 ICD Code: T84.50XA - INFECT/INFLM REACTION DUE TO UNSP INT JOINT PROSTH, INIT Status: Acute Priority: High Current Visit: Yes Problem Details: Right hip (3) Hypotension due to medication Status: Resolved Priority: High Current Visit: Yes (4) S/P PICC central line placement SNOMED Code(s): 031423345, 789477259, 484517472 ICD Code: Z95.828 - PRESENCE OF OTHER VASCULAR IMPLANTS AND GRAFTS Status: Resolved Current Visit: Yes Problem Details: right upper extremity (5) History of recent blood transfusion SNOMED Code(s): 254455002 ICD Code: Z92.89 - PERSONAL HISTORY OF OTHER MEDICAL TREATMENT Status: Acute Current Visit: Yes Problem Details: 01/24/2017 x 2 units PRBC. Hgb 7 up to 9 then back to 8.5 on discharge 02/05/2017 (6) Atrial fibrillation SNOMED Code(s): 42922755 ICD Code: I48.91 - UNSPECIFIED ATRIAL FIBRILLATION Status: Chronic Current Visit: Yes Problem Details: high dose digoxin dosing with normal lab on 02/04/2017 Qualifiers: Atrial fibrillation type: chronic Qualified Code(s): I48.2 - Chronic atrial fibrillation (7) Chronic anemia SNOMED Code(s): 975884171 ICD Code: D64.9 - ANEMIA, UNSPECIFIED Status: Chronic Current Visit: Yes (8) Hematuria SNOMED Code(s): 99185597 ICD Code: R31.9 - HEMATURIA, UNSPECIFIED Status: Resolved Current Visit: Yes Problem Details: sees urology (9) Palliative care status SNOMED Code(s): 716572409 ICD Code: Z51.5 - ENCOUNTER FOR PALLIATIVE CARE Status: Chronic Current Visit: Yes (10) MRSA (methicillin resistant Staphylococcus aureus) SNOMED Code(s): 218128010 ICD Code: A49.02 - METHICILLIN RESIS STAPH INFECTION, UNSP SITE Status: Chronic Current Visit: Yes - Patient Summary/Data Consults: Consultations 01/12/17 10:57 OT Evaluation and Treatment [CONS] Routine Please Evaluate and Treat. OT Reason for Consult: deconditioning This query below is only for informational purposes and is not editable. PT Evaluation and Treatment [CONS] Routine Please Evaluate and Treat. PT Reason for Consult: Strengthening This query below is only for informational purposes and is not editable. Hospital Course: Please see above history of present illness description - Patient Instructions Diet: Regular Diet as Tolerated Activity: Full Weight Bearing Showering/Bathing: May Shower Notify Provider of: Fever, Increased Pain, Swelling and Redness (at the prior IV site.), Drainage, Nausea and/or Vomiting - Discharge Plan Prescriptions/Med Rec: Ferrous Sulfate 325 mg PO TID #90 tablet Hydrochlorothiazide 25 mg PO DAILY #30 tablet Lisinopril [Prinivil] 10 mg PO DAILY #30 tablet Metoprolol Succinate [Toprol Xl] 100 mg PO DAILY #30 tab.sr.24h Sodium Chloride 0.65% [[place] Saline] 50 ml .XX DAILY PRN #1 bottle PRN Reason: dry nose Home Medications: Home Meds Allopurinol [Zyloprim] 300 mg PO DAILY 01/12/17 [History] Aspirin [Halfprin] 81 mg PO DAILY 01/12/17 [History] Digoxin 375 mcg PO MOWEFR 01/12/17 [History] Finasteride 5 mg PO DAILY 01/12/17 [History] Simvastatin [Zocor] 40 mg PO DAILY 01/12/17 [History] Terazosin [Hytrin] 5 mg PO BEDTIME 01/12/17 [History] Acetaminophen [Tylenol Extra Strength] 1,000 mg PO Q8H PRN tablet 02/05/17 [Rx] Aloe Vera/Sodium Chloride [[place] Saline Nasal Gel] 0 gm EDILIA QID PRN tube [Rx] Bisacodyl [Dulcolax] 10 mg PO DAILY tablet 02/05/17 [Rx] Digoxin [Lanoxin] 250 mcg PO SuTuThSa@0900 tablet 02/05/17 [Rx] Digoxin [Lanoxin] 375 mcg PO MoWeFr@0900 tablet 02/05/17 [Rx] Ferrous Sulfate 325 mg PO TID #90 tablet 02/05/17 [Rx] Hydrochlorothiazide 25 mg PO DAILY #30 tablet 02/05/17 [Rx] Lisinopril [Prinivil] 10 mg PO DAILY #30 tablet 02/05/17 [Rx] Metoprolol Succinate [Toprol Xl] 100 mg PO DAILY #30 tab.sr.24h 02/05/17 [Rx] Sodium Chloride 0.65% [[place] Saline] 50 ml .XX DAILY PRN #1 bottle 02/05/17 [Rx] - Discharge Summary/Plan Comment DC Time >30 min.: Yes Discharge Summary/Plan Comment: Pt will discharge to home with home health for continued strengthening, blood pressure monitoring and weights x 2 weeks. Already has follow up scheduled with Infectious Disease scheduled in [place]. Will make appointment PCP Dr. Simon MD in the next week to reviewed bp medication changes and to review hgb after blood transfusions as he is now placed on ferrous sulfate 324 mg tid. Pt agrees with above plan and will pick his medications up at [facility] in [place]. coming to pick him up. Total Discharge time: 60 min with > 50% spent face to face with patient examining hospital course, med changes, need for temporay home health and upcoming appointments. - General Info Date of Service: 02/05/17 Subjective Update: Pleasant male 81-year-old sitting at the edge of his bed fully dressed and "ready to go home ". I did see him ambulating with a wheeled walker unassisted without any difficulty. He was going at a pretty good pace with a stable gait and maneuvering the walker quite well. He did not appear to have any dyspnea or shortness of breath. His PICC line has been removed from the right upper extremity and he denies any pain tenderness redness or swelling. He denies any numbness or tingling distally. He has not had any repeat nosebleeds. Blood thinners been stopped. Functional Status: Reports: Tolerating Diet, Ambulating, Urinating - Review of Systems Systems Review Comment: For pertinent positives and negatives relevant to visit please see history of present illness as well as subjective. - Patient Data Vitals - Most Recent: Last Vital Signs Temp 97.8 F 02/05/17 08:27 Pulse 88 02/05/17 12:00 Resp 20 02/05/17 12:00 BP 122/60 02/05/17 12:00 Pulse Ox 95 02/05/17 08:27 Orthostatic Blood Pressure [ 124/68 Standing] Orthostatic Blood Pressure [ 124/64 Supine] Orthostatic Blood Pressure [ 134/64 Sitting] Weight - Most Recent: 88.904 kg Lab Results - Last 24 hrs: Laboratory Tests 01/13/17 01/15/17 01/15/17 Range/Units 08:25 06:40 06:40 WBC 5.9 5.2 (4.5-12.0) X10-3/uL RBC 2.40 L 2.61 L (4.30-5.75) x10(6)uL Hgb 7.5 L 8.0 L (11.5-15.5) g/dL Hct 22.2 L 23.9 L (30.0-51.3) % MCV 92.3 91.8 (80-96) fL MCH 31.2 30.6 (27.7-33.6) pg MCHC 33.8 33.3 (32.2-35.4) g/dL RDW 14.8 14.7 (11.5-15.5) % Plt Count 331 344 (125-369) X10(3)uL MPV 7.3 L 7.0 L (7.4-10.4) fL Neut % (Auto) 82.0 (46-82) % Lymph % (Auto) 9.8 L (13-37) % [place] % (Auto) 5.9 (4-12) % Eos % (Auto) 2 (1.0-5.0) % Baso % (Auto) 0 (0-2) % Reticulocyte % (Auto) (0.4-2.7) % Neut # (Auto) 4.9 (1.6-8.3) # Lymph # (Auto) 0.6 (0.6-5.0) # [place] # (Auto) 0.3 (0.0-1.3) # Eos # (Auto) 0.1 (0.0-0.8) # Baso # (Auto) 0.0 (0.0-0.2) # Add Manual Diff Yes Neutrophils % (Manual) 72 (46-82) % Band Neutrophils % 2 (0-6) % Lymphocytes % (Manual) 20 (13-37) % Monocytes % (Manual) 3 L (4-12) % Eosinophils % (Manual) 3 (0-5) % Absolute Retic (16-123) K/uL PT (8.7-11.1) INR (0.89-1.13) APTT (24.4-33.2) SECONDS Sodium (135-145) mmol/L Potassium (3.5-5.3) mmol/L Chloride (100-110) mmol/L Carbon Dioxide (21-32) mmol/L BUN (7-18) mg/dL Creatinine 1.2 (0.70-1.30) mg/dL Est Cr Clr Drug Dosing 49.00 mL/min Estimated GFR (MDRD) 58 L (>60) BUN/Creatinine Ratio (9-20) Glucose (80-116) mg/dL Calcium (8.6-10.2) mg/dL Iron (45-190) ug/dL TIBC (157-537) ug/dL Iron Saturation (15-55) % Unsaturated IBC (112-347) ug/dL Total Bilirubin (0.1-1.3) mg/dL AST (5-25) IU/L ALT (12-36) U/L Alkaline Phosphatase (56-112) IU/L Creatine Kinase 29 L (60-160) IU/L C-Reactive Protein (0.5-0.9) mg/dL Total Protein (6.0-8.0) g/dL Total Protein (PEP) (6.1-7.8) g/dL Albumin (3.2-4.6) g/dL Albumin % (PEP) (45.0-80.0) % Albumin (PEP) (3.3-4.8) g/dL Globulin g/dL Albumin/Globulin Ratio Xsuyl-4-Ynyrhjwih (0.1-0.4) g/dL Evtic-8-Iojlmkgob (%) (1.0-6.0) % Hecdw-9-Jhuszmgnx (0.5-1.1) g/dL Lkgwt-4-Vhrcvomfh (%) (6.0-17.0) % Vlhg-4-Baqmvukw (0.4-0.8) g/dL Ilnj-3-Ebxkfgjq (%) (5.0-13.0) % Vtia-4-Trrxlcnh (0.2-0.6) g/dL Yazh-5-Wvthzmck (%) (2.0-8.5) % Gamma Globulins (0.6-1.5) g/dL Gamma Globulins (%) (7.5-24.0) % PEP Interpretation Vitamin B12 (193-986) pg/mL Urine Color (YELLOW) Urine Appearance (CLEAR) Urine pH (5.0-6.5) Ur Specific [place] (1.010-1.025) Urine Protein (NEGATIVE) mg/dL Urine Glucose (UA) (NEGATIVE) mg/dL Urine Ketones (NEGATIVE) mg/dL Urine Occult Blood (NEGATIVE) Urine Nitrite (NEGATIVE) Urine Bilirubin (NEGATIVE) Urine Urobilinogen (NEGATIVE) mg/dL Ur Leukocyte Esterase (NEGATIVE) Urine RBC (0) Urine WBC (0) Ur Squamous Epith Cells (NS,R,O) Urine Bacteria (NS) Digoxin (0.9-2.0) ng/mL Blood Type Gel Antibody Screen Crossmatch 01/15/17 01/19/17 01/22/17 Range/Units 06:40 11:20 07:05 WBC 7.3 4.5 (4.5-12.0) X10-3/uL RBC 2.88 L 2.57 L (4.30-5.75) x10(6)uL Hgb 8.8 L 7.6 L (11.5-15.5) g/dL Hct 26.5 L 23.4 L (30.0-51.3) % MCV 92.2 91.0 (80-96) fL MCH 30.5 29.5 (27.7-33.6) pg MCHC 33.1 32.4 (32.2-35.4) g/dL RDW 15.1 14.8 (11.5-15.5) % Plt Count 314 219 (125-369) X10(3)uL MPV 7.2 L (7.4-10.4) fL Neut % (Auto) 67.7 (46-82) % Lymph % (Auto) 18.2 (13-37) % [place] % (Auto) 9.5 (4-12) % Eos % (Auto) 4 (1.0-5.0) % Baso % (Auto) 1 (0-2) % Reticulocyte % (Auto) (0.4-2.7) % Neut # (Auto) 3.1 (1.6-8.3) # Lymph # (Auto) 0.8 (0.6-5.0) # [place] # (Auto) 0.4 (0.0-1.3) # Eos # (Auto) 0.2 (0.0-0.8) # Baso # (Auto) 0.0 (0.0-0.2) # Add Manual Diff Neutrophils % (Manual) (46-82) % Band Neutrophils % (0-6) % Lymphocytes % (Manual) (13-37) % Monocytes % (Manual) (4-12) % Eosinophils % (Manual) (0-5) % Absolute Retic (16-123) K/uL PT (8.7-11.1) INR (0.89-1.13) APTT (24.4-33.2) SECONDS Sodium (135-145) mmol/L Potassium (3.5-5.3) mmol/L Chloride (100-110) mmol/L Carbon Dioxide (21-32) mmol/L BUN (7-18) mg/dL Creatinine (0.70-1.30) mg/dL Est Cr Clr Drug Dosing mL/min Estimated GFR (MDRD) (>60) BUN/Creatinine Ratio (9-20) Glucose (80-116) mg/dL Calcium (8.6-10.2) mg/dL Iron (45-190) ug/dL TIBC (157-537) ug/dL Iron Saturation (15-55) % Unsaturated IBC (112-347) ug/dL Total Bilirubin (0.1-1.3) mg/dL AST (5-25) IU/L ALT (12-36) U/L Alkaline Phosphatase (56-112) IU/L Creatine Kinase (60-160) IU/L C-Reactive Protein 8.2 H* (0.5-0.9) mg/dL Total Protein (6.0-8.0) g/dL Total Protein (PEP) (6.1-7.8) g/dL Albumin (3.2-4.6) g/dL Albumin % (PEP) (45.0-80.0) % Albumin (PEP) (3.3-4.8) g/dL Globulin g/dL Albumin/Globulin Ratio Hugco-6-Siriqauba (0.1-0.4) g/dL Uaakt-6-Zluqwcydf (%) (1.0-6.0) % Dxhnc-7-Vrsngjqmt (0.5-1.1) g/dL Zrest-9-Devowdiyv (%) (6.0-17.0) % Nfva-8-Zuvctqpq (0.4-0.8) g/dL Yopr-7-Fyfkwkmz (%) (5.0-13.0) % Zegx-4-Vabbrsmt (0.2-0.6) g/dL Abgv-7-Dygoprmj (%) (2.0-8.5) % Gamma Globulins (0.6-1.5) g/dL Gamma Globulins (%) (7.5-24.0) % PEP Interpretation Vitamin B12 (193-986) pg/mL Urine Color (YELLOW) Urine Appearance (CLEAR) Urine pH (5.0-6.5) Ur Specific [place] (1.010-1.025) Urine Protein (NEGATIVE) mg/dL Urine Glucose (UA) (NEGATIVE) mg/dL Urine Ketones (NEGATIVE) mg/dL Urine Occult Blood (NEGATIVE) Urine Nitrite (NEGATIVE) Urine Bilirubin (NEGATIVE) Urine Urobilinogen (NEGATIVE) mg/dL Ur Leukocyte Esterase (NEGATIVE) Urine RBC (0) Urine WBC (0) Ur Squamous Epith Cells (NS,R,O) Urine Bacteria (NS) Digoxin (0.9-2.0) ng/mL Blood Type Gel Antibody Screen Crossmatch 01/22/17 01/22/17 01/22/17 Range/Units 07:05 07:05 07:05 WBC (4.5-12.0) X10-3/uL RBC (4.30-5.75) x10(6)uL Hgb (11.5-15.5) g/dL Hct (30.0-51.3) % MCV (80-96) fL MCH (27.7-33.6) pg MCHC (32.2-35.4) g/dL RDW (11.5-15.5) % Plt Count (125-369) X10(3)uL MPV (7.4-10.4) fL Neut % (Auto) (46-82) % Lymph % (Auto) (13-37) % [place] % (Auto) (4-12) % Eos % (Auto) (1.0-5.0) % Baso % (Auto) (0-2) % Reticulocyte % (Auto) 2.4 (0.4-2.7) % Neut # (Auto) (1.6-8.3) # Lymph # (Auto) (0.6-5.0) # [place] # (Auto) (0.0-1.3) # Eos # (Auto) (0.0-0.8) # Baso # (Auto) (0.0-0.2) # Add Manual Diff Neutrophils % (Manual) (46-82) % Band Neutrophils % (0-6) % Lymphocytes % (Manual) (13-37) % Monocytes % (Manual) (4-12) % Eosinophils % (Manual) (0-5) % Absolute Retic 60 (16-123) K/uL PT (8.7-11.1) INR (0.89-1.13) APTT (24.4-33.2) SECONDS Sodium (135-145) mmol/L Potassium (3.5-5.3) mmol/L Chloride (100-110) mmol/L Carbon Dioxide (21-32) mmol/L BUN (7-18) mg/dL Creatinine 1.2 (0.70-1.30) mg/dL Est Cr Clr Drug Dosing 49.00 mL/min Estimated GFR (MDRD) 58 L (>60) BUN/Creatinine Ratio (9-20) Glucose (80-116) mg/dL Calcium (8.6-10.2) mg/dL Iron (45-190) ug/dL TIBC (157-537) ug/dL Iron Saturation (15-55) % Unsaturated IBC (112-347) ug/dL Total Bilirubin (0.1-1.3) mg/dL AST (5-25) IU/L ALT (12-36) U/L Alkaline Phosphatase (56-112) IU/L Creatine Kinase 52 L (60-160) IU/L C-Reactive Protein 5.6 H* (0.5-0.9) mg/dL Total Protein (6.0-8.0) g/dL Total Protein (PEP) (6.1-7.8) g/dL Albumin (3.2-4.6) g/dL Albumin % (PEP) (45.0-80.0) % Albumin (PEP) (3.3-4.8) g/dL Globulin g/dL Albumin/Globulin Ratio Wurbe-4-Kexyqjckk (0.1-0.4) g/dL Ngwzs-3-Ceswebvqq (%) (1.0-6.0) % Ixlxl-5-Uyukqdovz (0.5-1.1) g/dL Orucc-4-Ysidspeyk (%) (6.0-17.0) % Uply-2-Lvzkebuc (0.4-0.8) g/dL Cssb-1-Dndvdljy (%) (5.0-13.0) % Ivnh-1-Qudnifci (0.2-0.6) g/dL Lfan-3-Pxntymjp (%) (2.0-8.5) % Gamma Globulins (0.6-1.5) g/dL Gamma Globulins (%) (7.5-24.0) % PEP Interpretation Vitamin B12 (193-986) pg/mL Urine Color (YELLOW) Urine Appearance (CLEAR) Urine pH (5.0-6.5) Ur Specific [place] (1.010-1.025) Urine Protein (NEGATIVE) mg/dL Urine Glucose (UA) (NEGATIVE) mg/dL Urine Ketones (NEGATIVE) mg/dL Urine Occult Blood (NEGATIVE) Urine Nitrite (NEGATIVE) Urine Bilirubin (NEGATIVE) Urine Urobilinogen (NEGATIVE) mg/dL Ur Leukocyte Esterase (NEGATIVE) Urine RBC (0) Urine WBC (0) Ur Squamous Epith Cells (NS,R,O) Urine Bacteria (NS) Digoxin (0.9-2.0) ng/mL Blood Type Gel Antibody Screen Crossmatch 01/22/17 01/22/17 01/23/17 Range/Units 07:05 11:18 06:10 WBC (4.5-12.0) X10-3/uL RBC (4.30-5.75) x10(6)uL Hgb (11.5-15.5) g/dL Hct (30.0-51.3) % MCV (80-96) fL MCH (27.7-33.6) pg MCHC (32.2-35.4) g/dL RDW (11.5-15.5) % Plt Count (125-369) X10(3)uL MPV (7.4-10.4) fL Neut % (Auto) (46-82) % Lymph % (Auto) (13-37) % [place] % (Auto) (4-12) % Eos % (Auto) (1.0-5.0) % Baso % (Auto) (0-2) % Reticulocyte % (Auto) (0.4-2.7) % Neut # (Auto) (1.6-8.3) # Lymph # (Auto) (0.6-5.0) # [place] # (Auto) (0.0-1.3) # Eos # (Auto) (0.0-0.8) # Baso # (Auto) (0.0-0.2) # Add Manual Diff Neutrophils % (Manual) (46-82) % Band Neutrophils % (0-6) % Lymphocytes % (Manual) (13-37) % Monocytes % (Manual) (4-12) % Eosinophils % (Manual) (0-5) % Absolute Retic (16-123) K/uL PT (8.7-11.1) INR (0.89-1.13) APTT (24.4-33.2) SECONDS Sodium (135-145) mmol/L Potassium (3.5-5.3) mmol/L Chloride (100-110) mmol/L Carbon Dioxide (21-32) mmol/L BUN (7-18) mg/dL Creatinine (0.70-1.30) mg/dL Est Cr Clr Drug Dosing mL/min Estimated GFR (MDRD) (>60) BUN/Creatinine Ratio (9-20) Glucose (80-116) mg/dL Calcium (8.6-10.2) mg/dL Iron 38 L (45-190) ug/dL TIBC 199 (157-537) ug/dL Iron Saturation 19 (15-55) % Unsaturated IBC 161 (112-347) ug/dL Total Bilirubin (0.1-1.3) mg/dL AST (5-25) IU/L ALT (12-36) U/L Alkaline Phosphatase (56-112) IU/L Creatine Kinase (60-160) IU/L C-Reactive Protein (0.5-0.9) mg/dL Total Protein (6.0-8.0) g/dL Total Protein (PEP) (6.1-7.8) g/dL Albumin (3.2-4.6) g/dL Albumin % (PEP) (45.0-80.0) % Albumin (PEP) (3.3-4.8) g/dL Globulin g/dL Albumin/Globulin Ratio Mhxuy-1-Dthzgnlfr (0.1-0.4) g/dL Evqfn-3-Uaxuiywzg (%) (1.0-6.0) % Alblr-4-Crscxkczl (0.5-1.1) g/dL Hntrn-8-Enrygpilf (%) (6.0-17.0) % Hjvg-6-Lgeoalke (0.4-0.8) g/dL Erxf-9-Vefoilid (%) (5.0-13.0) % Avrn-7-Ghelnzmv (0.2-0.6) g/dL Gfwq-5-Wctzfxbh (%) (2.0-8.5) % Gamma Globulins (0.6-1.5) g/dL Gamma Globulins (%) (7.5-24.0) % PEP Interpretation Vitamin B12 742 (193-986) pg/mL Urine Color Yellow (YELLOW) Urine Appearance Clear (CLEAR) Urine pH 7.0 H (5.0-6.5) Ur Specific [place] 1.010 (1.010-1.025) Urine Protein Negative (NEGATIVE) mg/dL Urine Glucose (UA) Normal (NEGATIVE) mg/dL Urine Ketones Negative (NEGATIVE) mg/dL Urine Occult Blood Moderate H (NEGATIVE) Urine Nitrite Negative (NEGATIVE) Urine Bilirubin Negative (NEGATIVE) Urine Urobilinogen Normal (NEGATIVE) mg/dL Ur Leukocyte Esterase Negative (NEGATIVE) Urine RBC 20-30 H (0) Urine WBC 0-5 (0) Ur Squamous Epith Cells Few H (NS,R,O) Urine Bacteria Few H (NS) Digoxin (0.9-2.0) ng/mL Blood Type Gel Antibody Screen Crossmatch 01/23/17 01/24/17 01/25/17 Range/Units 06:10 10:50 06:20 WBC (4.5-12.0) X10-3/uL RBC (4.30-5.75) x10(6)uL Hgb 8.7 L (11.5-15.5) g/dL Hct 25.6 L (30.0-51.3) % MCV (80-96) fL MCH (27.7-33.6) pg MCHC (32.2-35.4) g/dL RDW (11.5-15.5) % Plt Count (125-369) X10(3)uL MPV (7.4-10.4) fL Neut % (Auto) (46-82) % Lymph % (Auto) (13-37) % [place] % (Auto) (4-12) % Eos % (Auto) (1.0-5.0) % Baso % (Auto) (0-2) % Reticulocyte % (Auto) (0.4-2.7) % Neut # (Auto) (1.6-8.3) # Lymph # (Auto) (0.6-5.0) # [place] # (Auto) (0.0-1.3) # Eos # (Auto) (0.0-0.8) # Baso # (Auto) (0.0-0.2) # Add Manual Diff Neutrophils % (Manual) (46-82) % Band Neutrophils % (0-6) % Lymphocytes % (Manual) (13-37) % Monocytes % (Manual) (4-12) % Eosinophils % (Manual) (0-5) % Absolute Retic (16-123) K/uL PT (8.7-11.1) INR (0.89-1.13) APTT (24.4-33.2) SECONDS Sodium (135-145) mmol/L Potassium (3.5-5.3) mmol/L Chloride (100-110) mmol/L Carbon Dioxide (21-32) mmol/L BUN (7-18) mg/dL Creatinine (0.70-1.30) mg/dL Est Cr Clr Drug Dosing mL/min Estimated GFR (MDRD) (>60) BUN/Creatinine Ratio (9-20) Glucose (80-116) mg/dL Calcium (8.6-10.2) mg/dL Iron (45-190) ug/dL TIBC (157-537) ug/dL Iron Saturation (15-55) % Unsaturated IBC (112-347) ug/dL Total Bilirubin (0.1-1.3) mg/dL AST (5-25) IU/L ALT (12-36) U/L Alkaline Phosphatase (56-112) IU/L Creatine Kinase (60-160) IU/L C-Reactive Protein (0.5-0.9) mg/dL Total Protein (6.0-8.0) g/dL Total Protein (PEP) 5.9 L (6.1-7.8) g/dL Albumin (3.2-4.6) g/dL Albumin % (PEP) 40.9 L (45.0-80.0) % Albumin (PEP) 2.4 L (3.3-4.8) g/dL Globulin g/dL Albumin/Globulin Ratio Xslml-1-Fxwztpxcp 0.3 (0.1-0.4) g/dL Vjfru-8-Ijojgnsug (%) 5.7 (1.0-6.0) % Hnkbb-6-Yintwusch 1.0 (0.5-1.1) g/dL Cogwy-7-Wodgmjgek (%) 17.2 H (6.0-17.0) % Bgrv-8-Adegjucb 0.5 (0.4-0.8) g/dL Aaxf-7-Apyotgfl (%) 8.9 (5.0-13.0) % Hace-8-Lpocuxal 0.6 (0.2-0.6) g/dL Eofo-8-Bumklrdg (%) 10.1 H (2.0-8.5) % Gamma Globulins 1.0 (0.6-1.5) g/dL Gamma Globulins (%) 17.2 (7.5-24.0) % PEP Interpretation See below Vitamin B12 (193-986) pg/mL Urine Color (YELLOW) Urine Appearance (CLEAR) Urine pH (5.0-6.5) Ur Specific Mcfall (1.010-1.025) Urine Protein (NEGATIVE) mg/dL Urine Glucose (UA) (NEGATIVE) mg/dL Urine Ketones (NEGATIVE) mg/dL Urine Occult Blood (NEGATIVE) Urine Nitrite (NEGATIVE) Urine Bilirubin (NEGATIVE) Urine Urobilinogen (NEGATIVE) mg/dL Ur Leukocyte Esterase (NEGATIVE) Urine RBC (0) Urine WBC (0) Ur Squamous Epith Cells (NS,R,O) Urine Bacteria (NS) Digoxin (0.9-2.0) ng/mL Blood Type O POSITIVE Gel Antibody Screen Negative Crossmatch See Detail 01/25/17 01/25/17 01/29/17 Range/Units 16:58 16:58 08:35 WBC 6.6 5.4 (4.5-12.0) X10-3/uL RBC 3.13 L 3.07 L (4.30-5.75) x10(6)uL Hgb 9.7 L 9.2 L (11.5-15.5) g/dL Hct 28.3 L 27.4 L (30.0-51.3) % MCV 90.6 89.4 (80-96) fL MCH 31.1 30.1 (27.7-33.6) pg MCHC 34.4 33.7 (32.2-35.4) g/dL RDW 15.1 15.0 (11.5-15.5) % Plt Count 302 279 (125-369) X10(3)uL MPV 7.4 7.4 (7.4-10.4) fL Neut % (Auto) 74.6 73.4 (46-82) % Lymph % (Auto) 13.5 15.7 (13-37) % [place] % (Auto) 8.9 6.6 (4-12) % Eos % (Auto) 2 4 (1.0-5.0) % Baso % (Auto) 1 1 (0-2) % Reticulocyte % (Auto) (0.4-2.7) % Neut # (Auto) 4.9 4.0 (1.6-8.3) # Lymph # (Auto) 0.9 0.8 (0.6-5.0) # [place] # (Auto) 0.6 0.4 (0.0-1.3) # Eos # (Auto) 0.2 0.2 (0.0-0.8) # Baso # (Auto) 0.0 0.0 (0.0-0.2) # Add Manual Diff Neutrophils % (Manual) (46-82) % Band Neutrophils % (0-6) % Lymphocytes % (Manual) (13-37) % Monocytes % (Manual) (4-12) % Eosinophils % (Manual) (0-5) % Absolute Retic (16-123) K/uL PT 12.6 H (8.7-11.1) INR 1.24 H (0.89-1.13) APTT 29.1 (24.4-33.2) SECONDS Sodium (135-145) mmol/L Potassium (3.5-5.3) mmol/L Chloride (100-110) mmol/L Carbon Dioxide (21-32) mmol/L BUN (7-18) mg/dL Creatinine (0.70-1.30) mg/dL Est Cr Clr Drug Dosing mL/min Estimated GFR (MDRD) (>60) BUN/Creatinine Ratio (9-20) Glucose (80-116) mg/dL Calcium (8.6-10.2) mg/dL Iron (45-190) ug/dL TIBC (157-537) ug/dL Iron Saturation (15-55) % Unsaturated IBC (112-347) ug/dL Total Bilirubin (0.1-1.3) mg/dL AST (5-25) IU/L ALT (12-36) U/L Alkaline Phosphatase (56-112) IU/L Creatine Kinase (60-160) IU/L C-Reactive Protein (0.5-0.9) mg/dL Total Protein (6.0-8.0) g/dL Total Protein (PEP) (6.1-7.8) g/dL Albumin (3.2-4.6) g/dL Albumin % (PEP) (45.0-80.0) % Albumin (PEP) (3.3-4.8) g/dL Globulin g/dL Albumin/Globulin Ratio Voyvj-6-Hclmzajcy (0.1-0.4) g/dL Mrvzg-8-Ptnhbbcll (%) (1.0-6.0) % Qruvi-2-Fiyymmisy (0.5-1.1) g/dL Teqvh-0-Vkazkalft (%) (6.0-17.0) % Rcak-0-Unxeimiw (0.4-0.8) g/dL Digs-9-Upwomdmr (%) (5.0-13.0) % Btdq-6-Qkvffwdk (0.2-0.6) g/dL Ttee-4-Bvywhlsk (%) (2.0-8.5) % Gamma Globulins (0.6-1.5) g/dL Gamma Globulins (%) (7.5-24.0) % PEP Interpretation Vitamin B12 (193-986) pg/mL Urine Color (YELLOW) Urine Appearance (CLEAR) Urine pH (5.0-6.5) Ur Specific [place] (1.010-1.025) Urine Protein (NEGATIVE) mg/dL Urine Glucose (UA) (NEGATIVE) mg/dL Urine Ketones (NEGATIVE) mg/dL Urine Occult Blood (NEGATIVE) Urine Nitrite (NEGATIVE) Urine Bilirubin (NEGATIVE) Urine Urobilinogen (NEGATIVE) mg/dL Ur Leukocyte Esterase (NEGATIVE) Urine RBC (0) Urine WBC (0) Ur Squamous Epith Cells (NS,R,O) Urine Bacteria (NS) Digoxin (0.9-2.0) ng/mL Blood Type Gel Antibody Screen Crossmatch 01/29/17 01/29/17 02/04/17 Range/Units 08:35 08:35 11:55 WBC (4.5-12.0) X10-3/uL RBC (4.30-5.75) x10(6)uL Hgb (11.5-15.5) g/dL Hct (30.0-51.3) % MCV (80-96) fL MCH (27.7-33.6) pg MCHC (32.2-35.4) g/dL RDW (11.5-15.5) % Plt Count (125-369) X10(3)uL MPV (7.4-10.4) fL Neut % (Auto) (46-82) % Lymph % (Auto) (13-37) % [place] % (Auto) (4-12) % Eos % (Auto) (1.0-5.0) % Baso % (Auto) (0-2) % Reticulocyte % (Auto) (0.4-2.7) % Neut # (Auto) (1.6-8.3) # Lymph # (Auto) (0.6-5.0) # [place] # (Auto) (0.0-1.3) # Eos # (Auto) (0.0-0.8) # Baso # (Auto) (0.0-0.2) # Add Manual Diff Neutrophils % (Manual) (46-82) % Band Neutrophils % (0-6) % Lymphocytes % (Manual) (13-37) % Monocytes % (Manual) (4-12) % Eosinophils % (Manual) (0-5) % Absolute Retic (16-123) K/uL PT (8.7-11.1) INR (0.89-1.13) APTT (24.4-33.2) SECONDS Sodium (135-145) mmol/L Potassium (3.5-5.3) mmol/L Chloride (100-110) mmol/L Carbon Dioxide (21-32) mmol/L BUN (7-18) mg/dL Creatinine 1.2 (0.70-1.30) mg/dL Est Cr Clr Drug Dosing 49.00 mL/min Estimated GFR (MDRD) 58 L (>60) BUN/Creatinine Ratio (9-20) Glucose (80-116) mg/dL Calcium (8.6-10.2) mg/dL Iron (45-190) ug/dL TIBC (157-537) ug/dL Iron Saturation (15-55) % Unsaturated IBC (112-347) ug/dL Total Bilirubin (0.1-1.3) mg/dL AST (5-25) IU/L ALT (12-36) U/L Alkaline Phosphatase (56-112) IU/L Creatine Kinase 120 (60-160) IU/L C-Reactive Protein 3.7 H* (0.5-0.9) mg/dL Total Protein (6.0-8.0) g/dL Total Protein (PEP) (6.1-7.8) g/dL Albumin (3.2-4.6) g/dL Albumin % (PEP) (45.0-80.0) % Albumin (PEP) (3.3-4.8) g/dL Globulin g/dL Albumin/Globulin Ratio Qlmcy-6-Uhtxnzcis (0.1-0.4) g/dL Mqqjx-7-Fcdrmaqjt (%) (1.0-6.0) % Ipaeu-8-Yeikzmutv (0.5-1.1) g/dL Wepbk-4-Itkukeflt (%) (6.0-17.0) % Jicd-6-Ebwoaxtc (0.4-0.8) g/dL Vxsl-0-Jugrwtoc (%) (5.0-13.0) % Bqef-3-Xdfhegto (0.2-0.6) g/dL Txhp-3-Rsadbjqm (%) (2.0-8.5) % Gamma Globulins (0.6-1.5) g/dL Gamma Globulins (%) (7.5-24.0) % PEP Interpretation Vitamin B12 (193-986) pg/mL Urine Color (YELLOW) Urine Appearance (CLEAR) Urine pH (5.0-6.5) Ur Specific [place] (1.010-1.025) Urine Protein (NEGATIVE) mg/dL Urine Glucose (UA) (NEGATIVE) mg/dL Urine Ketones (NEGATIVE) mg/dL Urine Occult Blood (NEGATIVE) Urine Nitrite (NEGATIVE) Urine Bilirubin (NEGATIVE) Urine Urobilinogen (NEGATIVE) mg/dL Ur Leukocyte Esterase (NEGATIVE) Urine RBC (0) Urine WBC (0) Ur Squamous Epith Cells (NS,R,O) Urine Bacteria (NS) Digoxin 0.7 L (0.9-2.0) ng/mL Blood Type Gel Antibody Screen Crossmatch 02/05/17 02/05/17 02/05/17 Range/Units 07:10 07:10 07:10 WBC 5.9 (4.5-12.0) X10-3/uL RBC 2.92 L (4.30-5.75) x10(6)uL Hgb 8.5 L (11.5-15.5) g/dL Hct 26.4 L (30.0-51.3) % MCV 90.3 (80-96) fL MCH 29.1 (27.7-33.6) pg MCHC 32.3 (32.2-35.4) g/dL RDW 15.4 (11.5-15.5) % Plt Count 231 (125-369) X10(3)uL MPV 7.4 (7.4-10.4) fL Neut % (Auto) 66.2 (46-82) % Lymph % (Auto) 16.4 (13-37) % [place] % (Auto) 9.5 (4-12) % Eos % (Auto) 6 H (1.0-5.0) % Baso % (Auto) 2 (0-2) % Reticulocyte % (Auto) (0.4-2.7) % Neut # (Auto) 3.8 (1.6-8.3) # Lymph # (Auto) 1.0 (0.6-5.0) # [place] # (Auto) 0.6 (0.0-1.3) # Eos # (Auto) 0.4 (0.0-0.8) # Baso # (Auto) 0.1 (0.0-0.2) # Add Manual Diff Neutrophils % (Manual) (46-82) % Band Neutrophils % (0-6) % Lymphocytes % (Manual) (13-37) % Monocytes % (Manual) (4-12) % Eosinophils % (Manual) (0-5) % Absolute Retic (16-123) K/uL PT (8.7-11.1) INR (0.89-1.13) APTT (24.4-33.2) SECONDS Sodium 139 (135-145) mmol/L Potassium 4.0 (3.5-5.3) mmol/L Chloride 104 (100-110) mmol/L Carbon Dioxide 26 (21-32) mmol/L BUN 31 H (7-18) mg/dL Creatinine 1.1 (0.70-1.30) mg/dL Est Cr Clr Drug Dosing 53.46 mL/min Estimated GFR (MDRD) > 60 (>60) BUN/Creatinine Ratio 28.2 H (9-20) Glucose 88 (80-116) mg/dL Calcium 9.3 (8.6-10.2) mg/dL Iron (45-190) ug/dL TIBC (157-537) ug/dL Iron Saturation (15-55) % Unsaturated IBC (112-347) ug/dL Total Bilirubin 0.4 (0.1-1.3) mg/dL AST 29 H (5-25) IU/L ALT 34 (12-36) U/L Alkaline Phosphatase 105 (56-112) IU/L Creatine Kinase 72 (60-160) IU/L C-Reactive Protein 3.5 H* (0.5-0.9) mg/dL Total Protein 6.9 (6.0-8.0) g/dL Total Protein (PEP) (6.1-7.8) g/dL Albumin 2.5 L (3.2-4.6) g/dL Albumin % (PEP) (45.0-80.0) % Albumin (PEP) (3.3-4.8) g/dL Globulin 4.4 g/dL Albumin/Globulin Ratio 0.6 Bcenu-3-Yyvpmsfpv (0.1-0.4) g/dL Zxvgd-0-Pitzmveli (%) (1.0-6.0) % Ddfro-6-Ztlthsltc (0.5-1.1) g/dL Gecgn-6-Xhixzkusw (%) (6.0-17.0) % Ofuc-7-Isjbvvhg (0.4-0.8) g/dL Rxsg-9-Iecsbidd (%) (5.0-13.0) % Nyyc-6-Hufbmuln (0.2-0.6) g/dL Lhnk-0-Lawkmjtt (%) (2.0-8.5) % Gamma Globulins (0.6-1.5) g/dL Gamma Globulins (%) (7.5-24.0) % PEP Interpretation Vitamin B12 (193-986) pg/mL Urine Color (YELLOW) Urine Appearance (CLEAR) Urine pH (5.0-6.5) Ur Specific [place] (1.010-1.025) Urine Protein (NEGATIVE) mg/dL Urine Glucose (UA) (NEGATIVE) mg/dL Urine Ketones (NEGATIVE) mg/dL Urine Occult Blood (NEGATIVE) Urine Nitrite (NEGATIVE) Urine Bilirubin (NEGATIVE) Urine Urobilinogen (NEGATIVE) mg/dL Ur Leukocyte Esterase (NEGATIVE) Urine RBC (0) Urine WBC (0) Ur Squamous Epith Cells (NS,R,O) Urine Bacteria (NS) Digoxin (0.9-2.0) ng/mL Blood Type Gel Antibody Screen Crossmatch Med Orders - Current: Current Medications Acetaminophen (Tylenol Extra Strength) 1,000 mg PO Q8H PRN PRN Reason: Pain Last Admin: 02/02/17 12:34 Dose: 1,000 mg Allopurinol (Zyloprim) 300 mg PO DAILY [facility] Last Admin: 02/05/17 09:55 Dose: 300 mg Bisacodyl (Dulcolax) 10 mg PO DAILY [facility] Last Admin: 02/05/17 09:52 Dose: 10 mg Digoxin (Lanoxin) 250 mcg PO [id number]@0900 [facility] Last Admin: 02/04/17 13:11 Dose: 250 mcg Digoxin (Lanoxin) 375 mcg PO MoWeFr@0900 [facility] Last Admin: 02/05/17 09:54 Dose: 375 mcg Ferrous Sulfate (Ferrous Sulfate) 325 mg PO TID [facility] Last Admin: 02/05/17 09:52 Dose: 325 mg Finasteride (Proscar) 5 mg PO DAILY [facility] Last Admin: 02/05/17 09:54 Dose: 5 mg Heparin Sodium (Porcine) (Heparin Lock Flush 100 Units/Ml) 300 units FLUSH BID [facility] Last Admin: 02/05/17 09:53 Dose: Not Given Heparin Sodium (Porcine) (Heparin Lock Flush 100 Units/Ml) 300 units FLUSH BID [facility] Last Admin: 02/05/17 09:53 Dose: Not Given Heparin Sodium (Porcine) (Heparin Lock Flush 100 Units/Ml) 300 units FLUSH ASDIRECTED PRN PRN Reason: Keep Vein Open Last Admin: 02/04/17 11:58 Dose: 300 units Hydrochlorothiazide (Hydrochlorothiazide) 25 mg PO DAILY [facility] Last Admin: 02/05/17 11:55 Dose: 25 mg Sodium Chloride (Normal Saline) 250 mls @ 100 mls/hr IV ASDIRECTED [facility] Sodium Chloride (Normal Saline) 250 mls @ 100 mls/hr IV ASDIRECTED [facility] Lisinopril (Prinivil) 10 mg PO DAILY [facility] Last Admin: 02/05/17 11:58 Dose: 10 mg Metoprolol Succinate (Toprol Xl) 100 mg PO DAILY [facility] Last Admin: 02/05/17 11:54 Dose: 100 mg Sodium Chloride (Saline Flush) 10 ml FLUSH ASDIRECTED PRN PRN Reason: Keep Vein Open Last Admin: 02/05/17 09:35 Dose: 10 ml Sodium Chloride ([place] Saline Nasal Gel) 0 gm EDILIA QID PRN PRN Reason: DRYNESS Last Admin: 01/31/17 08:25 Dose: 1 applic Sodium Chloride ([place] Nasal [place]) 0 ml EDILIA BID PRN PRN Reason: Dryness Last Admin: 01/31/17 12:45 Dose: 1 spray Terazosin HCl (Hytrin) 5 mg PO BEDTIME [facility] Last Admin: 02/03/17 21:30 Dose: 5 mg Discontinued Medications Aspirin (Halfprin) 81 mg PO DAILY [facility] Last Admin: 01/29/17 08:55 Dose: 81 mg Bisacodyl (Dulcolax) 10 mg PO DAILY PRN PRN Reason: Constipation Last Admin: 01/30/17 08:32 Dose: 10 mg Ferrous Gluconate (Ferrous Gluconate) 324 mg PO TID [facility] Stop: 01/26/17 15:30 Last Admin: 01/26/17 13:28 Dose: 324 mg Furosemide (Lasix) 10 mg IVPUSH NOW ONE Stop: 01/24/17 10:46 Last Admin: 01/24/17 12:07 Dose: 10 mg Hydrochlorothiazide (Hydrochlorothiazide) 50 mg PO DAILY [facility] Last Admin: 02/04/17 13:50 Dose: Not Given Hydrochlorothiazide (Hydrochlorothiazide) 25 mg PO DAILY [facility] Daptomycin 625 mg/ Sodium (Chloride) 12.5 mls @ 325 mls/hr IVPUSH Q24H [facility] Stop: 02/05/17 11:00 Last Admin: 02/05/17 09:27 Dose: 325 mls/hr Lisinopril (Prinivil) 40 mg PO DAILY [facility] Last Admin: 02/04/17 13:50 Dose: Not Given Oxymetazoline HCl (Afrin Original 0.05% Nasal [place]) 0 ml EDILIA DAILY [facility] Last Admin: 01/29/17 08:50 Dose: 2 spray Simvastatin (Zocor) 40 mg PO BEDTIME [facility] - Exam Quality Assessment: Reports: Central Line/PICC (Site is healthy nontender no erythema and no warmth or swelling. No oozing. Right upper extremity.) General: Reports: Alert, Oriented, Cooperative, No Acute Distress HEENT: Reports: Mucous Membr. Moist/[place] Neck: Reports: Supple, Trachea Midline Lungs: Reports: Clear to Auscultation, Normal Respiratory Effort Cardiovascular: Reports: Regular Rate, No Murmurs, Irregular Rhythm GI/Abdominal Exam: Normal Bowel Sounds, Soft, Non-Tender Extremities: Normal Inspection. No: Non-Tender, Pedal Edema, Joint Swelling, Arm Pain, Deonte's Sign Skin: Reports: Warm, Dry Neurological: Reports: No New Focal Deficit Psy/Mental Status: Reports: Normal Affect, Normal Mood *Q Meaningful Use (DIS) - VTE *Q VTE Criteria *Q: - Stroke *Q Stroke Criteria *Q: - AMI *Q AMI Criteria *Q:
== END 2017-02-05 17:08 | disposition home health service (06) | DRG 949 ==
LOC: FB.MS 11:54
PROVIDERS: ADMIT Family Medicine; ATTEND Family Medicine
PROC: 30233N1 Transfusion of Nonautologous Red Blood Cells into Peripheral Vein, Percutaneous Approach (ICD-10-PCS; principal; 2017-01-24)
PROC: 2Y41X5Z Packing of Nasal Region using Packing Material (ICD-10-PCS; 2017-01-27)
DX: T84.50XD Infection and inflammatory reaction due to unspecified internal joint prosthesis, subsequent encounter (principal); R78.81 Bacteremia; M00.052 Staphylococcal arthritis, left hip; B95.62 Methicillin resistant Staphylococcus aureus infection as the cause of diseases classified elsewhere; Z51.5 Encounter for palliative care; I48.2 Chronic atrial fibrillation; N40.0 Benign prostatic hyperplasia without lower urinary tract symptoms; R31.9 Hematuria, unspecified; D64.9 Anemia, unspecified; Z95.828 Presence of other vascular implants and grafts; R04.0 Epistaxis; Z87.891 Personal history of nicotine dependence; M19.90 Unspecified osteoarthritis, unspecified site; H91.90 Unspecified hearing loss, unspecified ear; Z79.82 Long term (current) use of aspirin; Z96.649 Presence of unspecified artificial hip joint; Z96.619 Presence of unspecified artificial shoulder joint; I95.2 Hypotension due to drugs
CPT/HCPCS: 36415; 36430; 80053; 80162; 81001; 82550; 82565; 82607; 83540; 83550; 84165; 85014; 85018; 85025; 85027; 85045; 85610; 85730; 86140; 86850; 86900; 86901; 86920; 86922; 97110-GO; 97110-GP; 97116-GP; 97162-GP; 97165-GO; 97530-GO-KX; 97530-GP; 97535-GO; A9270-GY; J0878; J1642; J1940; J7050; P9016

== ENCOUNTER 2017-05-21 08:27 | Inpatient (IN) | payer MEDICARE, BC ==
--- OUTSIDE RECORDS SUMMARY | 2017-05-21 14:58 | XMSREPORT | Summary of Care ---
:1935 Author Organization [facility] Address [address] [place] [address] Phone Care Team Providers Name Role Phone Veronika Malik MD Primary Care Provider Provider, No Attributed RESOURCE Attributed Provider Unavailable Reason for Visit Auth/Cert Status Reason Specialty Diagnoses / Procedures Referred By Contact Referred To Contact Encounter Details Date Type Department Care Team Description 05/11/2017 - Hospital Encounter [facility] Javy Malik MD [address] [place], [place] [id number] Abscess of groin, 05/21/2017 [place] [id number] Bruce Yun MD left [address] [place] [facility] [address] [place], [place] [id number] [place], [place] [id number] Allergies No Known Allergiesas of this encounter Medications Prescription Sig. Disp. Refills Start End Status Date Date sodium chloride 0.9% Administer 10 mL intravenously As often as necessary for other (Specify) (Flush infusion line before each antibiotic infusion and after each infusion completed) Flush infusion line before each antibiotic infusion and after each infusion completed. 0 Active prefilled 10 mL Flush line with heparin 300 units/ 3 mL after the last saline flush 018 syringe 0.9% SOLNIndications: Infection of prosthetic joint, subsequent encounter DAPTOmycin (CUBICIN) 6 Administer 552 0 Active mg/aj=497 mg in sodium mg intravenously 018 chloride 0.9% 50 Every 24 hours mLIndications: Infection of prosthetic joint, subsequent encounter rifAMPin (RIFADIN) 300 Take 1 capsule 60 capsule 2 Active mg capsuleIndications: (300 mg) by 018 Infection of mouth 2 times a prosthetic joint, day subsequent encounter acetaminophen Take 2 tablets 120 tablet 0 Active (TYLENOL) 325 mg (650 mg) by 018 tabletIndications: mouth Every 4 Abscess of groin, left hours as needed for mild pain aspirin (ECOTRIN LOW Take 1 tablet 30 tablet 0 Active STRENGTH) 81 MG (81 mg) by mouth 018 enteric coated 1 time per day tabletIndications: Coronary artery disease involving [place] coronary artery of [place] heart without angina pectoris Heparin Sodium, Inject 1 mL 36 mL 0 05/21/2 06/08/ Active Porcine, (HEPARIN, (5,000 Units) 018 2017 PORCINE,) 5000 UNIT/ML subcutaneously SOLN injection Every 12 hours solutionIndications: for 18 days Abscess of groin, left lisinopril (PRINIVIL, Take 1 tablet 30 tablet 0 Active ZESTRIL) 40 mg (40 mg) by mouth 018 tabletIndications: 1 time per day Hypertension, unspecified type terazosin (HYTRIN) 5 Take 1 capsule 30 capsule 0 Active MG capsuleIndications: (5 mg) by mouth 018 Benign prostatic every night at hyperplasia without bedtime lower urinary tract symptoms metoprolol succinate Take 1 tablet 30 tablet 0 2 05/27/ Active (TOPROL XL) 100 mg SR (100 mg) by 018 2019 tablet (24 mouth 1 time per hr)Indications: Atrial day fibrillation, unspecified type digoxin (LANOXIN) Take 1 tablet 13 tablet 0 Active 0.125 mg (0.125 mg) by 018 tabletIndications: mouth on Sunday, Atrial fibrillation, Sunday, and unspecified type Sunday hydroCHLOROthiazide 25 Take 1 tablet 30 tablet 0 Active mg tabletIndications: (25 mg) by mouth 018 Hypertension, 1 time per day unspecified type allopurinol (ZYLOPRIM) Take 1 tablet 30 tablet 0 Active 300 mg (300 mg) by 018 tabletIndications: mouth 1 time per 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 Do not swallow. magnesium hydroxide Take 30 mL by 473 mL 0 Active (MILK OF MAGNESIA) 400 mouth 1 time a 018 mg/5 mL oral day as needed suspensionIndications: for constipation Preventative health care polyethylene glycol Take 1 packet by 30 packet 0 Active (MIRALAX) mouth 1 time per 018 packetIndications: day Dissolve in Preventative health 4 to 8 ounces of care water, juice, soda, coffee, tea. finasteride (PROSCAR) Take 1 tablet (5 30 tablet 0 Active 5 MG mg) by mouth 1 018 tabletIndications: time per day Benign prostatic hyperplasia without lower urinary tract symptoms oxyCODONE (OXY-IR) 5 Take 1 tablet (5 20 tablet 0 Active MG tablet (immediate mg) by mouth 018 release)Indications: Every 4 hours as Abscess of groin, left needed for moderate pain saline nasal spray [place] 2 sprays 1 Bottle 0 Active (AYR,OCEAN) 0.65 % into each 018 nasal spray nostril 2 times a day as needed for congestion vitamin D3, Take 1 tablet 30 tablet 0 Active cholecalciferol, 1000 (1,000 Units) by 018 units tablet mouth 1 time per day allopurinol (ZYLOPRIM) Take 1 tablet 30 tablet 0 2 05/21/ Suspended 300 mg (300 mg) by 017 2018 tabletIndications: mouth 1 time per Acute gout, day unspecified cause, unspecified site aspirin 81 mg enteric Take 1 tablet 30 tablet 0 Suspended coated (81 mg) by mouth 2017 tabletIndications: 1 time per day Coronary artery disease involving [place] coronary artery of [place] heart without angina pectoris digoxin (LANOXIN) 0.25 Takes 1.5 60 tablet 0 05/21/ Suspended mg tabletIndications: tablets MWF, 2017 Atrial fibrillation, takes 1 tablet unspecified type rest of days finasteride (PROSCAR) Take 1 tablet (5 30 tablet 0 Suspended 5 MG mg) by mouth 1 2017 tabletIndications: time per day Gross hematuria hydroCHLOROthiazide 50 Take 1 tablet 30 tablet 0 05/21/ Suspended mg tabletIndications: (50 mg) by mouth 2017 Coronary artery 1 time per day disease involving [place] coronary artery of [place] heart without angina pectoris lisinopril (PRINIVIL, Take 1 tablet 30 tablet 0 ZESTRIL) 40 mg (40 mg) by mouth 2017 tabletIndications: 1 time per day Coronary artery disease involving [place] coronary artery of [place] heart without angina pectoris metoprolol succinate Take 1 tablet 30 tablet 0 Suspended (TOPROL XL) 100 mg SR (100 mg) by 2017 tablet (24 mouth 1 time per hr)Indications: day Coronary artery disease involving [place] coronary artery of [place] heart without angina pectoris, Atrial fibrillation, unspecified type terazosin (HYTRIN) 5 Take 1 capsule 30 capsule 0 Suspended MG capsuleIndications: (5 mg) by mouth 2017 Benign prostatic every night at hyperplasia without bedtime lower urinary tract symptoms simvastatin (ZOCOR) 20 Take 2 tablets 30 tablet 0 05/21/ Suspended mg tabletIndications: (40 mg) by mouth 2017 Coronary artery 1 time per day disease involving [place] coronary artery of [place] heart without angina pectoris bisacodyl (DULCOLAX) 5 Take 5 mg by 05/12/ mg tablet mouth 2 times a 2018 day as needed vitamin D3, Take 1,000 Units cholecalciferol, 1000 by mouth 1 time 2018 units tablet per day diphenhydrAMINE Take 25 mg by (BENADRYL) 25 mg mouth 1 time a 2018 capsule day as needed for itching simvastatin (ZOCOR) 80 Take 40 mg by 05/21/ Suspended mg tablet mouth every 2018 night at bedtime acetaminophen Take 1,000 mg by (TYLENOL) 500 mg mouth Every 8 2018 tablet hours as needed for moderate pain saline nasal spray [place] 2 sprays (AYR,OCEAN) 0.65 % into each 2018 nasal spray nostril 2 times a day as needed for congestion Menthol-Methyl Apply to Salicylate (PAIN affected area 2 2017 RELIEVING RUB) 10-15 % times a day CREA hEParin 100 units/mL Administer 3 mL 0 05/18/2 05/19/ injection (300 Units) 2017 solutionIndications: intravenously As Infection of often as prosthetic joint, necessary for subsequent encounter other (Specify) (heparin 300 units/3 mL IV FLUSH after completion of each antibiotic infusion (after saline flush)) for up to 1 day heparin 300 units/3 mL IV FLUSH after completion of each antibiotic infusion (after saline flush) oxyCODONE (OXY-IR) 5 Take 1-2 tablets 20 tablet 0 05/21/2 05/21/ Discontinued MG tablet (immediate (5-10 mg) by 018 2017 release)Indications: mouth Every 4 Abscess of groin, left hours as needed for moderate pain or severe pain as of this encounter Active Problems Problem Noted Date Abscess of groin, left 05/12/2017 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 Gross hematuria 01/06/2017 Coronary artery disease involving [place] coronary artery of [place] heart 01/30 without angina pectoris Benign prostatic hyperplasia without lower urinary tract symptoms 05/19/2005 Overview: He has no history of prostate cancer, no history of brachytherapy. He had a TUR procedure in the past at the [facility] as of this encounter Social History Tobacco Use Types Packs/Day Years Used Date Former Smoker Quit: 01/06/1973 Smokeless Tobacco: Former User Quit: 01/06/1973 Comments: hasn't smoked or chewed for at least 40 years Alcohol Use Drinks/Week oz/Week Comments Yes social Sex Assigned at Date Recorded Not on file as of this encounter Last Filed Vital Signs Vital Sign Reading Time Taken Blood Pressure 106/57 05/21/2017 11:55 AM CDT Pulse 92 05/21/2017 11:55 AM CDT Temperature 36.6 C (97.9 F) 05/21/2017 11:55 AM CDT Respiratory Rate 16 05/21/2017 11:55 AM CDT Oxygen Saturation 94% 05/21/2017 11:55 AM CDT Inhaled Oxygen Concentration - - Weight 92 kg (202 lb 12.8 oz) 05/18/2017 5:15 AM CDT Height 177.8 cm (5' 10") 05/11/2017 8:37 PM CDT Body Mass Index 29.1 05/18/2017 5:15 AM CDT in this encounter Functional Status Functional Status Response Date of Assessment Is the person deaf or does he/she have serious difficulty No 05/12/2017 hearing? Is this person blind or does he/she have difficulty No 05/12/2017 seeing even when wearing glasses? Do you have difficulty with walking, balance, climbing Yes 05/12/2017 stairs, or had a fall in the last 3 months? Does the patient have difficulty dressing or bathing? Yes 05/12/2017 Because of a physical, mental, or emotional condition; Yes 05/12/2017 does this person have difficulty doing errands alone such as visiting a doctor's office or shopping? Cognitive Status Response Date of Assessment Because of a physical, mental, or emotional condition; No 05/12/2017 does this person have serious difficulty concentrating, remembering, or making decisions? as of this encounter Discharge Summaries Dimitris Nash MD - 05/21/2017 10:04 AM CDTFormatting of this note may be different from the original. Discharge Summary Patient ID: Beka Harris is a 82yr male. Attending Physician: Dimitris Nash MD Discharging Provider Specialty: Adult Hospitalist Admit Date: 05/11/2017 Discharge Date: 05/21/2017 Primary Care Physician: Veronika Malik MD Code Status: Full Code Primary Discharge Diagnoses <principal problem not specified> Active Problems: Abscess of groin, left Failed total joint replacement Resolved Problems: * No resolved hospital problems. 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 CT scan 2017 showed the following: "Swelling of obturator muscle with a suspicion of small abnormal collections in the muscle above theacetabulum and just above its insertion at the hip. Also suspicion of abnormal collection in the anterior left obturator externus muscle. These are difficult these areas are not well-defined but small abscesses cannot be excluded. Metal artifact from a left hip prosthesis obscures adjacent bone and soft tissue. There may be small noncalcified stones versus mural thickening along the posterior gallbladder. Gallbladder is incompletely visualized. Appropriate radiation dose reduction devices and/or manual techniques for appropriate moderation of exposure was utilized." Orthopedics was consulted, performed left total hip arthroplasty stage 1 revision for failed total hip arthroplasty initial encounter on 05/16/2017. Infectious disease was consulted for antibiotic management. He had expected acute blood loss anemia due to surgery, requiring PRBC transfusion, 1 unit PRBC on 05/18/2017 and 1 unit PRBC on 05/19/2017. Hemoglobin was monitored and noted to be stable, and patient asymptomatic. Physical therapy and occupational therapy were consulted; it was recommended patient discharge for further therapies at a low intensity setting. All questions were answered and patient was discharged to swing bed in stable condition. Discharge recommendations: -No driving on narcotics -See PCP in 1 week -Postoperative cares and follow up as per surgical services -Ensure having regular bowel movements -Hold simvastatin -Monitor Hgb Procedures Performed and Findings Procedure(s): LEFT TOTAL HIP ARTHROPLASTY STAGE 1 REVISION - Wound Class: Clean Discharge Exam Vital Signs: Temp: 97.8 F (36.6 C) | BP: 101/59 | Pulse: 96 | Resp: 16 | Pain Ratin (out of 10) | Weight: 92 kg (202 lb 12.8 oz) | O2 Device: Room Air O2 Flow Rate (L/min): 0.5 l/min | SpO2: 93 % (RA) Intake and Output: 05/20 0700 - 05/21 0659 In: 1352 [Oral:990] Out: 2795 [Urine:2795] Physical Exam Constitutional: No distress. HENT: Head: Normocephalic and atraumatic. Eyes: EOM are normal. Cardiovascular: Normal rate and intact distal pulses. Pulmonary/Chest: Effort normal. No respiratory distress. He has no wheezes. Abdominal: Soft. He exhibits no distension. There is no tenderness. Musculoskeletal: He exhibits no edema. Left hip dressing in place, clean, no drainage Neurological: He is alert. Skin: He is not diaphoretic. Psychiatric: He has a normal mood and affect. His behavior is normal. Vitals reviewed. Consults VANCOMYCIN: RX TO DOSE INFECTIOUS DISEASE CONSULT INTERNAL MEDICINE CONSULT SPIRITUAL CARE REFERRAL INFECTION CONTROL REFERRAL INFECTION CONTROL CONSULT (NON PHYSICIAN) PICC LINE PLACEMENT CONSULT Discharge Disposition ADULT Discharge Planning: Home (1, 2) Discharge Medications Medication List START taking these medications * bisacodyl 5 mg tablet Take 1 tablet (5 mg) by mouth 2 times a day as needed for constipation * bisacodyl 10 mg suppository Commonly known as: DULCOLAX Insert 1 suppository (10 mg) rectally 1 time a day as needed for constipation Unwrap before inserting. Do not swallow. DAPTOmycin (CUBICIN) 6 mg/mu=756 mg in sodium chloride 0.9% 50 mL Administer 552 mg intravenously Every 24 hours heparin (porcine) 5000 UNIT/ML Soln injection solution Inject 1 mL (5,000 Units) subcutaneously Every 12 hours for 18 days magnesium hydroxide 400 mg/5 mL oral suspension Commonly known as: MILK OF MAGNESIA Take 30 mL by mouth 1 time a day as needed for constipation oxyCODONE 5 MG tablet (immediate release) Commonly known as: OXY-IR Take 1-2 tablets (5-10 mg) by mouth Every 4 hours as needed for moderate pain or severe pain polyethylene glycol packet Commonly known as: MIRALAX Take 1 packet by mouth 1 time per day Dissolve in 4 to 8 ounces of water, juice , soda, coffee, tea. Start taking on: 05/22/2017 rifAMPin 300 mg capsule Commonly known as: RIFADIN Take 1 capsule (300 mg) by mouth 2 times a day sodium chloride 0.9% prefilled 10 mL syringe 0.9% Soln Administer 10 mL intravenously As often as necessary for other (Specify) (Flush infusion line beforeeach antibiotic infusion and after each infusion completed) Flush infusion line before each antibiotic infusion and after each infusion completed. Flush line with heparin 300 units/ 3 mL after the lastsaline flush * Notice: This list has 2 medication(s) that are the same as other medications prescribed for you.Read the directions carefully, and ask your doctor or other care provider to review them with you. CHANGE how you take these medications acetaminophen 325 mg tablet Commonly known as: TYLENOL Take 2 tablets (650 mg) by mouth Every 4 hours as needed for mild pain What changed: - medication strength - how much to take - when to take this - reasons to take this digoxin 0.125 mg tablet Commonly known as: LANOXIN Take 1 tablet (0.125 mg) by mouth on Sunday, Sunday, and Sunday What changed: - medication strength - how much to take - how to take this - when to take this - additional instructions ferrous sulfate 325 mg tablet Commonly known as: 65 mg FE per 325 mg tablet Take 1 tablet (325 mg) by mouth 2 times a day What changed: when to take this hydroCHLOROthiazide 25 mg tablet Take 1 tablet (25 mg) by mouth 1 time per day Start taking on: 05/22/2017 What changed: - medication strength - how much to take CONTINUE taking these medications allopurinol 300 mg tablet Commonly known as: ZYLOPRIM Take 1 tablet (300 mg) by mouth 1 time per day Start taking on: 05/22/2017 aspirin 81 MG enteric coated tablet Commonly known as: ECOTRIN LOW STRENGTH Take 1 tablet (81 mg) by mouth 1 time per day Start taking on: 05/22/2017 finasteride 5 MG tablet Commonly known as: PROSCAR Take 1 tablet (5 mg) by mouth 1 time per day Start taking on: 05/22/2017 INJECTAFER 750 MG/15ML Soln Generic drug: ferric carboxymaltose lisinopril 40 mg tablet Commonly known as: PRINIVIL, ZESTRIL Take 1 tablet (40 mg) by mouth 1 time per day Start taking on: 05/22/2017 metoprolol succinate 100 mg SR tablet (24 hr) Commonly known as: TOPROL XL Take 1 tablet (100 mg) by mouth 1 time per day Start taking on: 05/22/2017 saline nasal spray 0.65 % nasal spray Commonly known as: AYR,OCEAN terazosin 5 MG capsule Commonly known as: HYTRIN Take 1 capsule (5 mg) by mouth every night at bedtime vitamin D3 (cholecalciferol) 1000 units tablet STOP taking these medications diphenhydrAMINE 25 mg capsule Commonly known as: BENADRYL pain relieving rub 10-15 % Crea simvastatin 20 mg tablet Commonly known as: ZOCOR simvastatin 80 mg tablet Commonly known as: ZOCOR ASK your doctor about these medications hEParin 100 units/mL injection solution Administer 3 mL (300 Units) intravenously As often as necessary for other ( Specify) (heparin 300 units/3 mL IV FLUSH after completion of each antibiotic infusion (after saline flush)) for up to 1 day heparin 300 units/3 mL IV FLUSH after completion of each antibiotic infusion (after saline flush) Ask about: Should I take this medication? Where to Get Your Medications Information about where to get these medications is not yet available ! Ask your nurse or doctor about these medications acetaminophen 325 mg tablet allopurinol 300 mg tablet aspirin 81 MG enteric coated tablet bisacodyl 10 mg suppository bisacodyl 5 mg tablet DAPTOmycin (CUBICIN) 6 mg/mj=032 mg in sodium chloride 0.9% 50 mL digoxin 0.125 mg tablet ferrous sulfate 325 mg tablet finasteride 5 MG tablet heparin (porcine) 5000 UNIT/ML Soln injection solution hEParin 100 units/mL injection solution hydroCHLOROthiazide 25 mg tablet lisinopril 40 mg tablet magnesium hydroxide 400 mg/5 mL oral suspension metoprolol succinate 100 mg SR tablet (24 hr) oxyCODONE 5 MG tablet (immediate release) polyethylene glycol packet rifAMPin 300 mg capsule sodium chloride 0.9% prefilled 10 mL syringe 0.9% Soln terazosin 5 MG capsule Discharge Instructions See AVS for discharge instructions. Tests Pending at Discharge NA Follow-Up Scheduled See AVS for Follow up appointments made Medical Decision Making The time spent on discharge coordination was 25 minutes.in this encounter Discharge Instructions Marisa Del Valle RN - 05/21/2017 Dressing instructions: Cover dressing with PressNSeal for 14 days-for shower ? Leave hip dressing intact and dry for 14 days after surgery, then okay to remove & discard dressing. ? After dressing is removed, okay to leave hip incision uncovered & okay to shower without covering the incision. ? No lotions, creams, or ointments over the incision until fully healed. ? Soap & water over the incision is okay. ? Leave the skin adhesive mesh on the hip intact for up to 2 weeks. ? When it begins to peel, you may attempt to peel it off completely, or trim the peeling edges with scissors. Dressing change daily to left groin with 4x4s and tape Total Hip post op Activity ? Walk with walker/crutches full weight bearing as instructed by Physical Therapy. ? Continue exercises you have been taught. ? Sit in a chair that is safe for your hip. Higher the firmer encouraged. ? Do not drive until your Surgeon informs you that you can. ? Lie down 2 times a day in bed for 45-60 minutes. You may elevate your feet on pillows. If swelling occurs lie down in bed 3-4 times a day. ? Ice for hip as needed. ? COREY hose on during day and off at bedtime for 4-6 weeks or as instructed by Orthopedic Surgeon. ? Follow hip precautions for 10-12 weeks. ? No hip abduction exercises Reviewed "Orthopedic Discharge Education Guidelines" and "Pain management after You are Discharged" documents with patient. Paper copies were attached to AVS for patient to use as a reference for follow up questions. Preventing Blood Clots (Deep Vein Thrombosis) In the days and weeks after surgery, you have a higher chance of developing a deep vein thrombosis (DVT). This is a condition in which a blood clot or thrombus develops in a deep vein. They are most common in the leg. But, a DVT may develop in an arm, or another deep vein in the body. A piece of the clot, called an embolus, can separate from the vein and travel to the lungs. A blood clot in the lungsis called a pulmonary embolus (PE). This can cut off the flow of blood. It is a medical emergency and may cause . Deep vein thrombosis can occur even after you go home. Follow all instructions from your health careprovider. The following are some general guidelines about DVT prevention: Anticoagulant medication. If an anticoagulant was prescribed, make sure you follow all directionsabout taking it. Be sure you know what foods and medicines may interact. Also, ask your health care provider what to do if you forget to take a dose. Compression stockings. Your health care provider will tell you how often to wear and remove the stockings. Follow all instructions closely. Each time you remove your stockings, check your legs and feet for reddened areas or sores. If you see any changes, call your health care provider right away. Returning to activity. Follow all instructions about returning to activities. Be as active as youcan. This improves blood flow and helps prevent a clot from forming. When in bed or in a chair, continue with the ankle exercises you did in the hospital. Elevate your extremity above the level of yourheart to help prevent swelling. in this encounter Progress Notes Bruce Yun MD - 05/20/2017 9:30 AM CDTFormatting of this note may be different from the original. Internal Medicine Progress Note Patient Name: Beka Harris Admit Date: 05/11/2017 CSN: [id number] Summary: Beka Harris is a 82yr male that has been hospitalized for a left groin abscess / periprosthetic septic arthritis s/p I&D growing MSSA. CT scan showed swelling of obturator muscle with a suspicion of small abnormal collections in the muscle above the acetabulum and just above its insertion at the hip. Also suspicion of abnormal collection in the anterior left obturator externus muscle. Underwent debridement 05/16. Day: 8 Interval Hx/ROS: Hgb at 7 today. Feeling better today compared with yesterday. Swelling went down with the lasix dosing yesterday, good UOP. Pain under control. Therapies. 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 Impression/Plan: 1. Left groin abscess / left hip periprosthetic septic arthritis s/p I&D growing MSSA -vancomycin per ID will probably go on daptomycin. Has had elevated CK in the past. Statin will need to be held for 8 weeks on discharge. -repeat surgery 05/16 -cultures pending 2. Atrial fibrillation with RVR on digoxin and toprol; rates came down 3. Acute blood loss anemia requiring blood transfusion 1 unit 05/18 and 05/19. Had a reported 400mL blood loss during surgery. CAD on aspirin, metoprolol, lisinopril, simvastatin Dyslipidemia on simvastatin (hold for 8 weeks on discharge) HTN on lisinopril, hctz BPH on terazosin, finasteride Gout on allopurinol IVF: --- DVT Prophylaxis: Heparin 5000 units SC every 8 hours Code status: Full Code Disposition: SNF? Current Vital Signs Temp: 97.8 F (36.6 C) BP: 97/55 Pulse: 102 O2 Device: Room Air O2 Flow Rate (L/min): 0.5 l/min Resp: 16 Pain Ratin (out of 10) Weight: 92 kg (202 lb 12.8 oz) SpO2: 96 % 24 hour Intake/Output 05/19 0700 - 05/20 0659 In: 1702 [Oral:1040] Out: 4325 [Urine:4325] Physical Exam: General: Awake, alert and not in distress RS: CTA, no crackles, no wheezes CVS: Normal Rate, RR, Normal S1S2 GI: Normal BS, soft, nondistended, non tender MSK: No pedal edema Lines and Drains Patient Lines/Drains/Airways Status Active Lines Name: Placement date: Placement time: Site: Days: PICC Single Lumen 05/18/17 Right Basilic 05/18/17 1400 Basilic 1 Diagnostics and Labs All Reports, Vitals, Nursing Notes, pertinent Imaging and Labs Reviewed. No Known Allergies Bruce Yun M.D. Department of Internal Medicine Hospitalist Bruce Rubio MD - 05/19/2017 10:44 AM CDTFormatting of this note may be different from the original. Internal Medicine Progress Note Patient Name: Beka Harris Admit Date: 05/11/2017 [facility]: [id number] Summary: Beka Harris is a 82yr male that has been hospitalized for a left groin abscess / periprosthetic septic arthritis s/p I&D growing MSSA. CT scan showed swelling of obturator muscle with a suspicion of small abnormal collections in the muscle above the acetabulum and just above its insertion at the hip. Also suspicion of abnormal collection in the anterior left obturator externus muscle. Day: 7 Interval Hx/ROS: Hgb drop again today. Transfuse 1 unit pRBC. Also getting a little edematous. Willgive lasix 20mg IV and follow up. Did well after ozuna removal, urinating alright. Impression/Plan: 1. Left groin abscess / left hip periprosthetic septic arthritis s/p I&D growing MSSA -vancomycin per ID will probably go on daptomycin. Has had elevated CK in the past. Statin will need to be held for 8 weeks on discharge. -repeat surgery 05/16 -cultures pending 2. Atrial fibrillation with RVR on digoxin and toprol; rates came down 3. Acute blood loss anemia requiring blood transfusion 1 unit 05/18 CAD on aspirin, metoprolol, lisinopril, simvastatin Dyslipidemia on simvastatin (hold for 8 weeks on discharge) HTN on lisinopril, hctz BPH on terazosin, finasteride Gout on allopurinol IVF: --- DVT Prophylaxis: Heparin 5000 units SC every 8 hours Code status: Full Code Disposition: SNF? Current Vital Signs Temp: 97.8 F (36.6 C) BP: 102/53 Pulse: 109 O2 Device: NC - no humidity O2 Flow Rate (L/min): 0.5 l/min Resp: 16 Pain Ratin (out of 10) Weight: 92 kg (202 lb 12.8 oz) SpO2: 97 % 24 hour Intake/Output 05/18 0700 - 05/19 0659 In: 1590 [Oral:1220] Out: 2950 [Urine:2950] Physical Exam: General: Awake, alert and not in distress RS: CTA, no crackles, no wheezes CVS: Normal Rate, RR, Normal S1S2 GI: Normal BS, soft, nondistended, non tender MSK: No pedal edema Lines and Drains Patient Lines/Drains/Airways Status Active Lines Name: Placement date: Placement time: Site: Days: PICC Single Lumen 05/18/17 Right Basilic 05/18/17 1400 Basilic less than 1 Diagnostics and Labs All Reports, Vitals, Nursing Notes, pertinent Imaging and Labs Reviewed. No Known Allergies Bruce Yun M.D. Department of Internal Medicine Hospitalist Yusra Crane PA - 05/19/2017 8:46 AM CDTFormatting of this note may be different from the original. Orthopedic Daily Progress Note Assessment: Beka Harris is a 82yr old male 1. status post stage 1 left CHAVEZ revision Post-Op Diagnosis Codes: * Failed total hip arthroplasty, initial encounter [T84.018A, Z96.649] 2. Acute post-op blood loss anemia - Hgb 6.5 this am, tranfusing 1 unit PRBC today 3. MRSA infection 4. A fib 5. CAD 6. HTN 7. BPH Subjective: Patient is about the same. Pain under control. Getting another unit of blood today. No overnight complaints. +flatus. No BM. Objective: BP 118/64 | Pulse 90 | Temp 97.9 F (36.6 C) | Resp 16 | Ht 1.778 m (5' 10") | Wt 92 kg (202 lb 12.8 oz) | SpO2 99% | BMI 29.1 kg/m2 Maximum Temperatures (last 24 hours) Temperature Maximum Max Temp 98 F (36.7 C) Intake and Output: 05/18 0700 - 05/19 0659 In: 1590 [Oral:1220] Out: 2950 [Urine:2950] Exam: leftlower extremity. Tolerates gentle A/PROM left LE with mild discomfort. Wound was dry. Dressing was notchanged. Was reinforced by nursing overnight. Neurovascular intact. No calf tenderness noted in leftlower extremity. Lab Results Component Value Date WBC 4.6 05/19/2017 RBC 2.23 (L) 05/19/2017 HEMOGLOBIN 6.5 (LL) 05/19/2017 HEMATOCRIT 20.8 (LL) 05/19/2017 MCV 93.3 05/19/2017 MCH 29.1 05/19/2017 MCHC 31.3 (L) 05/19/2017 RDW 16.3 03/21/2017 PLTCOUNT 138 (L) 05/19/2017 NEUTROPCT 72.4 05/11/2017 BANDPCT 2 01/15/2017 LYMPHSPCT 13.3 05/11/2017 MONOSPCT 9.2 05/11/2017 EOSPCT 4.4 05/11/2017 BASOPHILPCT 0.7 05/11/2017 METAMYELOPCT 1.0 01/08/2017 Lab Results Component Value Date PT 17.3 (H) 01/07/2017 INR 1.5 (L) 01/07/2017 Labs and xrays were reviewed. Plan: 1. Continue post opcare. 2. Pain management - no changes. 3. Therapies PT, OT and Case Management. WBAT LLE. 4. Will need 6-8 weeks IV abx per ID 5. Plan for SNF/swing bed due to IV abx and continued need for therapies and ADL training. 6. Ok per ortho to transfer to SNF when medically stable.Bruce Yun MD - 05/18/2017 11:24 AM CDTFormatting of this note may be different from the original. Internal Medicine Progress Note Patient Name: Beka Harris Admit Date: 05/11/2017 CSN: [id number] Summary: Beak Harris is a 82yr male that has been hospitalized for a left groin abscess / periprosthetic septic arthritis s/p I&D growing MSSA. CT scan showed swelling of obturator muscle with a suspicion of small abnormal collections in the muscle above the acetabulum and just above its insertion at the hip. Also suspicion of abnormal collection in the anterior left obturator externus muscle. Day: 6 Interval Hx/ROS: Feeling a little stronger today. Hgb drop requiring transfusion today. Remove foleyand do voiding trial. Working with therapies. Following operative cultures. Probably discharge next week. Impression/Plan: 1. Left groin abscess / left hip periprosthetic septic arthritis s/p I&D growing MSSA -vancomycin per ID -repeat surgery 05/16 -cultures pending 2. Atrial fibrillation with RVR on digoxin and toprol; rates came down 3. Acute blood loss anemia requiring blood transfusion 1 unit 05/18 CAD on aspirin, metoprolol, lisinopril, simvastatin Dyslipidemia on simvastatin HTN on lisinopril, hctz BPH on terazosin, finasteride Gout on allopurinol IVF: --- DVT Prophylaxis: Heparin 5000 units SC every 8 hours Code status: Full Code Disposition: SNF? Current Vital Signs Temp: 97.9 F (36.6 C) BP: 120/72 Pulse: 113 O2 Device: NC - no humidity O2 Flow Rate (L/min): 1 l/min Resp: 16 Pain Ratin (out of 10) Weight: 92 kg (202 lb 12.8 oz) SpO2: 97 % 24 hour Intake/Output 05/17 0700 - 05/18 0659 In: 3512 [Oral:1000] Out: 975 [Urine:975] Physical Exam: General: Awake, alert and not in distress RS: CTA, no crackles, no wheezes CVS: Normal Rate, RR, Normal S1S2 GI: Normal BS, soft, nondistended, non tender MSK: No pedal edema Lines and Drains Patient Lines/Drains/Airways Status Active Lines Name: Placement date: Placement time: Site: Days: Peripheral IV 05/16/17 Antecubital Left 05/16/17 1417 Antecubital 1 Peripheral IV 05/17/17 Hand Left 05/17/17 2300 Hand less than 1 Diagnostics and Labs All Reports, Vitals, Nursing Notes, pertinent Imaging and Labs Reviewed. No Known Allergies Bruce Yun M.D. Department of Internal Medicine Hospitalist Esem Hebert MD - 05/18/2017 11:17 AM CDTFormatting of this note may be different from the original. 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 - History of left hip replacement about 25 years ago Plan - Continue IV Vancomycin per pharmacy dosing - Check hepatic function panel and LFTs - Start Rifampin 300mg PO BID for 3 months - PICC line placement - Hold simvastatin for 6-8 weeks on discharge while on daptomycin - Discharge on IV Daptomycin and PO rifampin Esme Cochran MD Infectious Disease Pager [phone] Interval History Left hip pain S/p one stage revision of the left hip on 05/16/17 He denies any fever or chills No nausea, vomiting or diarrhea Antibiotics Antibiotics Start Stop Route Frequency Ordered 05/12/17 0120 vancomycin in dextrose 200 mL IV piggyback (premix) 1,000 mg Status: Discontinued 05/12 0120 IV Now 05/12/17 0118 05/12/17 0120 vancomycin 1,500 mg in sodium chloride 0.9% 250 mL 05/12 0356 IV Now 05/12/17 0120 05/12/17 1400 ceFAZolin (ANCEF) syringe 2000 mg/20 mL sterile water 05/12 1321 IV Give in OR 05/12/17 0846 05/12/17 2300 vancomycin 1,250 mg in sodium chloride 0.9% 250 mL Status: Discontinued 05/14 1245 IV Every twelve hours 05/12/17 2231 05/15/17 0000 vancomycin in dextrose 200 mL IV piggyback (premix) 1,000 mg Status: Discontinued 05/17 0649 IV Every twelve hours 05/14/17 1248 05/16/17 1612 tobramycin (NEBCIN) for injection 1.2 gram vial Status: Discontinued 05/16 1655 INTRAOP 05/16/17 1613 05/16/17 1613 vancomycin for injection 1000 mg vial Status: Discontinued 05/16 1655 INTRAOP 05/16/17 1613 05/17/17 0647 vancomycin therapy reminder -- MISC Upon permission 05/17/17 0648 05/18/17 0600 vancomycin 1,250 mg in sodium chloride 0.9% 250 mL 05/18 0747 IV One time 05/18/17 0411 05/18/17 2100 rifAMPin (RIFADIN) capsule 300 mg -- PO Two times a day 05/18/17 1117 All other medications reviewed in Epic. Physical Exam Current Vital Signs Temp: 97.9 F (36.6 C) BP: 120/72 Pulse: 113 O2 Device: NC - no humidity O2 Flow Rate (L/min): 1 l/min Resp: 16 Pain Ratin (out of 10) Weight: 92 kg (202 lb 12.8 oz) SpO2: 97 % Maximum Temperatures (last 24 hours) Temperature Maximum Max Temp 98 F (36.7 C) Physical Exam General: cooperative, no distress Lungs: breathing unlabored, good air entry, clear Heart: irregular, no audible murmurs Abdomen: soft, BS+, no tenderness Msk: left groin incision with packing, left hip incision with dressing Skin: no suspicious rashes Neuro: Alert, follows commands Microbiology BLOOD: 05/11/17 - No growth OTHER: 05/12/17 Left groin abscess - MRSA 05/16/17 Left hip tissue - MRSA 12/29/16 blood - MRSA from [place] region ( Vancomycin NGUYỄN - 2) 01/04/17 - Left hip fluid - Staph from broth only with 2-3 morphologies concerning for contamination Labs and Imaging Estimated Creatinine Clearance: 57.8 mL/min (based on Cr of 1). Lab Results Component Value Date WBC 5.4 05/18/2017 RBC 2.15 (L) 05/18/2017 HEMOGLOBIN 6.4 (LL) 05/18/2017 HEMATOCRIT 20.0 (LL) 05/18/2017 MCV 93.5 05/18/2017 MCH 29.8 05/18/2017 MCHC 31.8 05/18/2017 RDW 16.3 03/21/2017 PLTCOUNT 138 (L) 05/18/2017 NEUTROPCT 72.4 05/11/2017 BANDPCT 2 01/15/2017 LYMPHSPCT 13.3 05/11/2017 MONOSPCT 9.2 05/11/2017 EOSPCT 4.4 05/11/2017 BASOPHILPCT 0.7 05/11/2017 METAMYELOPCT 1.0 01/08/2017 Lab Results Component Value Date GLUCOSE 98 05/18/2017 BUN 28 (H) 05/18/2017 CREATSERUM 1.00 05/18/2017 BCRATIO 28.0 (H) 05/18/2017 NA 128 (L) 05/18/2017 POTASSIUM 4.2 05/18/2017 CL 96 (L) 05/18/2017 CO2 21 (L) 05/18/2017 ANIONGAP 14 03/21/2017 CA 7.5 (L) 05/18/2017 PROTEINTOTAL 6.8 05/13/2017 ALBUMIN 2.3 (L) 05/18/2017 ALKPHOS 144 (H) 05/13/2017 AST 15 05/13/2017 ALT 10 05/13/2017 BILITOTAL 0.3 05/13/2017 Medical Decision Making Total unit / floor time 35 minutes. Over 50% of total time used in counseling and coordination of care. Yusra Banegas PA - 05/18/2017 7:30 AM CDTFormatting of this note may be different from the original. Orthopedic Daily Progress Note Assessment: Beka Harris is a 82yr old male 1. status post stage 1 left CHAVEZ revision Post-Op Diagnosis Codes: * Failed total hip arthroplasty, initial encounter [T84.018A, Z96.649] 2. Acute post-op blood loss anemia - Hgb 6.4 this am, tranfusing 1 unit PRBC today 3. MRSA infection 4. A fib 5. CAD 6. HTN 7. BPH Subjective: Patient is improving. Pain under control. Getting blood transfusion this am. Sleeping better. Mobilizing with PT. Sore with movement but overall doing well. Objective: BP 104/60 | Pulse 100 | Temp 97.7 F (36.5 C) | Resp 16 | Ht 1.778 m (5' 10" ) | Wt 92 kg (202 lb 12.8 oz) | SpO2 94% Comment: RA | BMI 29.1 kg/m2 Maximum Temperatures (last 24 hours) Temperature Maximum Max Temp 97.8 F (36.6 C) Intake and Output: 05/17 0700 - 05/18 0659 In: 3512 [Oral:1000] Out: 975 [Urine:975] Exam: left lower extremity. Tolerates gentle A/PROM left LE with mild discomfort. Wound was dry. Dressing was not changed. Was reinforced by nursing overnight. Neurovascular intact. No calf tenderness noted in left lower extremity. Lab Results Component Value Date WBC 5.4 05/18/2017 RBC 2.15 (L) 05/18/2017 HEMOGLOBIN 6.4 (LL) 05/18/2017 HEMATOCRIT 20.0 (LL) 05/18/2017 MCV 93.5 05/18/2017 MCH 29.8 05/18/2017 MCHC 31.8 05/18/2017 RDW 16.3 03/21/2017 PLTCOUNT 138 (L) 05/18/2017 NEUTROPCT 72.4 05/11/2017 BANDPCT 2 01/15/2017 LYMPHSPCT 13.3 05/11/2017 MONOSPCT 9.2 05/11/2017 EOSPCT 4.4 05/11/2017 BASOPHILPCT 0.7 05/11/2017 METAMYELOPCT 1.0 01/08/2017 Lab Results Component Value Date PT 17.3 (H) 01/07/2017 INR 1.5 (L) 01/07/2017 Labs and xrays were reviewed. Plan: 1. Continue post op care. 2. Pain management - no changes. 3. Therapies PT, OT and Case Management. WBAT LLE. 4. Will need 6 weeks IV abx per ID 5. Plan for SNF/swing bed due to IV abx and continued need for therapies and ADL training. 6. Ok per ortho to transfer to SNF when medically stable. Associated attestation - Brandt Castillo MD - 05/18/2017 8:34 AM CDTPatient examined. Agree with above.Bruce Yun MD - 05/17/2017 12:12 PM CDTFormatting of this note may be different from the original. Internal Medicine Progress Note Patient Name: Beka Harris Admit Date: 05/11/2017 [facility]: [id number] Summary: Beka Harris is a 82yr male that has been hospitalized for a left groin abscess / periprosthetic septic arthritis s/p I&D growing MSSA. CT scan showed swelling of obturator muscle with a suspicion of small abnormal collections in the muscle above the acetabulum and just above its insertion at the hip. Also suspicion of abnormal collection in the anterior left obturator externus muscle. Day: 5 Interval Hx/ROS: Pulse under control. Feeling weak today. Had afib with RVr overnight, since improved with morning medications. Magnesium checked 1.2 will replace and follow up. Digoxin level checked and low. Will add an additional dose. Impression/Plan: 1. Left groin abscess / left hip periprosthetic septic arthritis s/p I&D growing MSSA -vancomycin per ID -repeat surgery 05/16 2. Atrial fibrillation with RVR on digoxin and toprol; rates came down 3. Acute blood loss anemia not requiring transfusion as of now, monitor hgb CAD on aspirin, metoprolol, lisinopril, simvastatin Dyslipidemia on simvastatin HTN on lisinopril, hctz BPH on terazosin, finasteride Gout on allopurinol Total time spent in care of this patient 35 minutes with greater than 50 percent of the time spent in counseling and coordination of care as described above alongside reviewing chart, discussing with nursing, phone calls, reviewing labs, and imaging. IVF: --- DVT Prophylaxis: Heparin 5000 units SC every 8 hours Code status: Full Code Disposition: SNF? Current Vital Signs Temp: 97.6 F (36.4 C) BP: 100/49 Pulse: 138 O2 Device: NC - no humidity O2 Flow Rate (L/min): 2 l/min Resp: 16 Pain Ratin (out of 10) Weight: 87.5 kg (193 lb) SpO2: 99 % 24 hour Intake/Output 05/16 0700 - 05/17 0659 In: 5415 [Oral:700] Out: 2700 [Urine:1100] Physical Exam: General: Awake, alert and not in distress RS: CTA, no crackles, no wheezes CVS: Normal Rate, RR, Normal S1S2 GI: Normal BS, soft, nondistended, non tender MSK: No pedal edema Lines and Drains Patient Lines/Drains/Airways Status Active Lines Name: Placement date: Placement time: Site: Days: Peripheral IV 05/16/17 Antecubital Left 05/16/17 1417 Antecubital less than 1 Urinary Catheter 05/16/17 Ozuna 05/16/17 1739 less than 1 Diagnostics and Labs All Reports, Vitals, Nursing Notes, pertinent Imaging and Labs Reviewed. No Known Allergies Bruce Yun M.D. Department of Internal Medicine Hospitalist Yusra Crane PA - 05/17/2017 9:03 AM CDTFormatting of this note may be different from the original. Orthopedic Daily Progress Note Assessment: Beka Harris is a 82yr old male 1. status post stage 1 left CHAVEZ revision Post-Op Diagnosis Codes: * Failed total hip arthroplasty, initial encounter [T84.018A, Z96.649] 2. Acute post-op blood loss anemia - expected 3. MRSA infection 4. A fib 5. CAD 6. HTN 7. BPH Subjective: Patient is improving. Pain under control. Sore this am. Denies fevers/chills, [place]. No acute overnight events. Objective: BP 114/53 | Pulse 134 | Temp 97.8 F (36.6 C) | Resp 16 | Ht 1.778 m (5' 10" ) | Wt 87.5 kg (193 lb) | SpO2 98% | BMI 27.69 kg/m2 Maximum Temperatures (last 24 hours) Temperature Maximum Max Temp 98.3 F (36.8 C) Intake and Output: 05/16 0700 - 05/17 0659 In: 5415 [Oral:700] Out: 2700 [Urine:1100] Exam: left lower extremity. Tolerates gentle A/PROM left LE with mild discomfort. Wound was dry. Dressing was not changed. Was reinforced by nursing overnight. Neurovascular intact. No calf tenderness noted in left lower extremity. Lab Results Component Value Date WBC 5.9 05/17/2017 RBC 2.67 (L) 05/17/2017 HEMOGLOBIN 7.9 (L) 05/17/2017 HEMOGLOBIN 7.9 (L) 05/17/2017 HEMATOCRIT 25.0 (L) 05/17/2017 MCV 93.6 05/17/2017 MCH 29.6 05/17/2017 MCHC 31.6 05/17/2017 RDW 16.3 03/21/2017 PLTCOUNT 154 05/17/2017 NEUTROPCT 72.4 05/11/2017 BANDPCT 2 01/15/2017 LYMPHSPCT 13.3 05/11/2017 MONOSPCT 9.2 05/11/2017 EOSPCT 4.4 05/11/2017 BASOPHILPCT 0.7 05/11/2017 METAMYELOPCT 1.0 01/08/2017 Lab Results Component Value Date PT 17.3 (H) 01/07/2017 INR 1.5 (L) 01/07/2017 Labs and xrays were reviewed. Plan: 1. Continue post op care. 2. Pain management - no changes. 3. Therapies PT, OT and Case Management. WBAT LLE. 4. Dc ozuna this afternoon when up with PT well 5. Will need 6 weeks IV abx per ID 6. Plan for SNF/swing bed due to IV abx and continued need for therapies and ADL training. Associated attestation - Brandt Castillo MD - 05/17/2017 9:29 AM CDTPatient examined. Agree with above.Beba Handy RP - 05/17/2017 6:53 AM CDTFormatting of this note may be different from the original. Mr. Harris continues on Vancomycin per pharmacy protocol for MRSA bacteremia. The patient is on day 6 of receiving Vancomycin and current dose is (dose/ interval):1g every 12 hours. Labs: WBC Date/Time Value Ref Range Status 05/17/2017 05:23 AM 5.9 4.0 - 11.0 K/uL Final 05/16/2017 05:10 PM 5.6 4.0 - 11.0 K/uL Final 05/16/2017 08:44 AM 4.8 4.0 - 11.0 K/uL Final 03/21/2017 5.2 Final 02/05/2017 07:10 AM 5.9 4.5 - 12.0 Final 01/29/2017 5.4 Final Lab Results Component Value Date CREATSERUM 0.70 (L) 05/17/2017 CREATSERUM 0.70 (L) 05/17/2017 CREATSERUM 0.70 (L) 05/17/2017 Vancomycin Trough Date/Time Value Ref Range Status 05/16/2017 11:14 PM 24.7 (H) 10.0 - 20.0 ug/mL Final Vancomycin Random Date/Time Value Ref Range Status 01/11/2017 04:55 AM 12.5 ug/mL Final Cultures: Lab Results Component Value Date CULTGROWTH Moderate amount Staphylococcus aureus, MRSA (!) 05/12/2017 Max Temperature: Temp (24hrs), Av.6 F (36.4 C), Min:96 F (35.6 C), Max:98.3 F (36.8 C) Estimated CrCl: Estimated Creatinine Clearance: 82.6 mL/min (based on Cr of 0.7) . ml/min Intake/Output: Intake/Output Summary (Last 24 hours) at 05/17/17 0653 Last data filed at 05/17/17 0500 Gross per 24 hour Intake 4215 ml Output 2200 ml Net 2015 ml Other Active Antimicrobials: Antibiotics Start Stop Route Frequency Ordered 05/12/17 0120 vancomycin in dextrose 200 mL IV piggyback (premix) 1,000 mg Status: Discontinued 05/12 0120 IV Now 05/12/17 0118 05/12/17 0120 vancomycin 1,500 mg in sodium chloride 0.9% 250 mL 05/12 0356 IV Now 05/12/17 0120 05/12/17 1400 ceFAZolin (ANCEF) syringe 2000 mg/20 mL sterile water 05/12 1321 IV Give in OR 05/12/17 0846 05/12/17 2300 vancomycin 1,250 mg in sodium chloride 0.9% 250 mL Status: Discontinued 05/14 1245 IV Every twelve hours 05/12/17 2231 05/15/17 0000 vancomycin in dextrose 200 mL IV piggyback (premix) 1,000 mg Status: Discontinued 05/17 0649 IV Every twelve hours 05/14/17 1248 05/16/17 1612 tobramycin (NEBCIN) for injection 1.2 gram vial Status: Discontinued 05/16 1655 INTRAOP 05/16/17 1613 05/16/17 1613 vancomycin for injection 1000 mg vial Status: Discontinued 05/16 1655 INTRAOP 05/16/17 1613 05/17/17 0647 vancomycin therapy reminder -- MISC Upon permission 05/17/17 0648 Assessment/Plan: The trough level is higher than the desired goal of 10-15 mg/L. Vancomycin will be held until levels therapeutic. Random level ordered for 0000. Pharmacy willcontinue to monitor per the pharmacokinetic service policy. Beba Handy [facility] rBuce Yun MD - 05/16/2017 11:15 AM CDTFormatting of this note may be different from the original. Internal Medicine Progress Note Patient Name: Beka Harris Admit Date: 05/11/2017 [facility]: [id number] Summary: Bkea Harris is a 82yr male that has been hospitalized for a left groin abscess / periprosthetic septic arthritis s/p I&D growing MSSA. CT scan showed swelling of obturator muscle with a suspicion of small abnormal collections in the muscle above the acetabulum and just above its insertion at the hip. Also suspicion of abnormal collection in the anterior left obturator externus muscle. Day: 4 Interval Hx/ROS: VSS. Feeling well today. Denies dyspnea, chest pain, abdominal pain, fevers or chills. Going for surgery today. Discussed with family at the bedside any questions/concerns. Impression/Plan: 1. Left groin abscess / left hip periprosthetic septic arthritis s/p I&D growing MSSA -vancomycin per ID -repeat surgery pending 2. Pre-operative risk eval -patient does have CAD with a LAD bare metal stent back in 2012. He has been doing well after that without angina like symptoms reported. -he does have atrial fibrillation as well, on digoxin and metoprolol -pre-operative EKG -he did have an echocardiogram back in 2017 and does show tricuspid and mitral valve insufficienciesand pulmonary hypertension -evaluation of METS is limited as his hip is the culprit in this case -he is at moderate risk for vikram-operative complications with this procedure which was relayed to him -there is no benefit to further cardiac workup (ie. Stress testing / angiogram) that's been shown toimprove outcomes in patients undergoing non-cardiac surgery Atrial fibrillation on digoxin and toprol CAD on aspirin, metoprolol, lisinopril, simvastatin Dyslipidemia on simvastatin HTN on lisinopril, hctz BPH on terazosin, finasteride Gout on allopurinol IVF: --- DVT Prophylaxis: Heparin 5000 units SC every 8 hours Code status: Full Code Disposition: SNF? Current Vital Signs Temp: 98.2 F (36.8 C) BP: 110/52 Pulse: 82 O2 Device: Room Air Resp: 16 Pain Ratin (out of 10) Weight: 87.5 kg (193 lb) SpO2: 92 % 24 hour Intake/Output 05/15 0700 - 05/16 0659 In: 1700 [Oral:1700] Out: 950 [Urine:950] Physical Exam: General: Awake, alert and not in distress RS: CTA, no crackles, no wheezes CVS: Normal Rate, RR, Normal S1S2 GI: Normal BS, soft, nondistended, non tender MSK: No pedal edema Lines and Drains Patient Lines/Drains/Airways Status Active Lines Name: Placement date: Placement time: Site: Days: Peripheral IV 05/11/17 Antecubital Right;Outer 05/11/172214 Antecubital 4 Diagnostics and Labs All Reports, Vitals, Nursing Notes, pertinent Imaging and Labs Reviewed. No Known Allergies Bruce Yun M.D. Department of Internal Medicine Hospitalist Esme Hebert MD - 05/15/2017 4:16 PM CDTFormatting of this note may be different from the original. 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 - History of left hip replacement about 25 years ago Plan - Continue IV Vancomycin per pharmacy dosing - One stage left hip revision is planned for tomorrow, will follow intra- operative cultures once those are obtained to determine antibiotic choice on discharge Esme Cochran MD Infectious Disease Pager [phone] Interval History Left groin pain is improving He denies any fever or chills No nausea, vomiting or diarrhea Patient is scheduled to have one stage revision of the left hip tomorrow Antibiotics Antibiotics Start Stop Route Frequency Ordered 05/12/17 0120 vancomycin in dextrose 200 mL IV piggyback (premix) 1,000 mg Status: Discontinued 05/12 0120 IV Now 05/12/17 0118 05/12/17 0120 vancomycin 1,500 mg in sodium chloride 0.9% 250 mL 05/12 0356 IV Now 05/12/17 0120 05/12/17 1400 ceFAZolin (ANCEF) syringe 2000 mg/20 mL sterile water 05/12 1321 IV Give in OR 05/12/17 0846 05/12/17 2300 vancomycin 1,250 mg in sodium chloride 0.9% 250 mL Status: Discontinued 05/14 1245 IV Every twelve hours 05/12/171 05/15/17 0000 vancomycin in dextrose 200 mL IV piggyback (premix) 1,000 mg -- IV Every twelve hours 05/14/17 1248 All other medications reviewed in Epic. Physical Exam Current Vital Signs Temp: 97.8 F (36.6 C) BP: 93/46 Pulse: 80 O2 Device: Room Air Resp: 16 Pain Ratin (out of 10) Weight: 87.5 kg (193 lb) SpO2: 93 % Maximum Temperatures (last 24 hours) Temperature Maximum Max Temp 98.2 F (36.8 C) Physical Exam General: cooperative, no distress Lungs: breathing unlabored, good air entry, clear Heart: irregular, no audible murmurs Abdomen: soft, BS+, no tenderness Msk:Left groin with improved erythema, left groin incision with packing Skin: no suspicious rashes Neuro: Alert, follows commands Microbiology BLOOD: 05/11/17 - No growth till date OTHER: 05/12/17 Left groin abscess - MRSA 12/29/16 blood - MRSA from [place] region ( Vancomycin NGUYỄN - 2) 01/04/17 - Left hip fluid - Staph from broth only with 2-3 morphologies concerning for contamination Labs and Imaging Estimated Creatinine Clearance: 72.2 mL/min (based on Cr of 0.8). Lab Results Component Value Date WBC 4.9 05/13/2017 RBC 2.97 (L) 05/13/2017 HEMOGLOBIN 8.7 (L) 05/13/2017 HEMATOCRIT 28.1 (L) 05/13/2017 MCV 94.6 05/13/2017 MCH 29.3 05/13/2017 MCHC 31.0 (L) 05/13/2017 RDW 16.3 03/21/2017 PLTCOUNT 163 05/13/2017 NEUTROPCT 72.4 05/11/2017 BANDPCT 2 01/15/2017 LYMPHSPCT 13.3 05/11/2017 MONOSPCT 9.2 05/11/2017 EOSPCT 4.4 05/11/2017 BASOPHILPCT 0.7 05/11/2017 METAMYELOPCT 1.0 01/08/2017 Lab Results Component Value Date GLUCOSE 85 05/13/2017 BUN 19 05/13/2017 CREATSERUM 0.80 05/15/2017 BCRATIO 23.8 05/13/2017 NA 136 05/13/2017 POTASSIUM 3.5 05/13/2017 CL 99 05/13/2017 CO2 25 05/13/2017 ANIONGAP 14 03/21/2017 CA 8.7 05/13/2017 PROTEINTOTAL 6.8 05/13/2017 ALBUMIN 3.0 (L) 05/13/2017 ALKPHOS 144 (H) 05/13/2017 AST 15 05/13/2017 ALT 10 05/13/2017 BILITOTAL 0.3 05/13/2017 Medical Decision Making Total unit / floor time 35 minutes. Over 50% of total time used in counseling and coordination of care. Bruce Yun MD - 05/15/2017 11:14 AM CDTFormatting of this note may be different from the original. Internal Medicine Progress Note Patient Name: Beka Harris Admit Date: 05/11/2017 [facility]: [id number] Summary: Beka Harris is a 82yr male that has been hospitalized for a left groin abscess / periprosthetic septic arthritis s/p I&D growing MSSA. CT scan showed swelling of obturator muscle with a suspicion of small abnormal collections in the muscle above the acetabulum and just above its insertion at the hip. Also suspicion of abnormal collection in the anterior left obturator externus muscle. Day: 3 Interval Hx/ROS: Doing well this morning. VSS. No further clearance needed from cardiac standpoint for surgery. Impression/Plan: 1. Left groin abscess / left hip periprosthetic septic arthritis s/p I&D growing MSSA -vancomycin per ID -repeat surgery pending 2. Pre-operative risk eval -patient does have CAD with a LAD bare metal stent back in 2012. He has been doing well after that without angina like symptoms reported. -he does have atrial fibrillation as well, on digoxin and metoprolol -pre-operative EKG -he did have an echocardiogram back in 2016 and does show tricuspid and mitral valve insufficienciesand pulmonary hypertension -evaluation of METS is limited as his hip is the culprit in this case -he is at moderate risk for vikram-operative complications with this procedure which was relayed to him -there is no benefit to further cardiac workup (ie. Stress testing / angiogram) that's been shown toimprove outcomes in patients undergoing non-cardiac surgery Atrial fibrillation on digoxin and toprol CAD on aspirin, metoprolol, lisinopril, simvastatin Dyslipidemia on simvastatin HTN on lisinopril, hctz BPH on terazosin, finasteride Gout on allopurinol IVF: --- DVT Prophylaxis: Heparin 5000 units SC every 8 hours Code status: Full Code Disposition: SNF? Current Vital Signs Temp: 97.5 F (36.4 C) BP: 102/60 Pulse: 107 O2 Device: Room Air Resp: 16 Pain Ratin (out of 10) Weight: 87.5 kg (193 lb) SpO2: 96 % 24 hour Intake/Output 05/14 0700 - 05/15 0659 In: 2000 [Oral:2000] Out: 1650 [Urine:1650] Physical Exam: General: Awake, alert and not in distress RS: CTA, no crackles, no wheezes CVS: Normal Rate, RR, Normal S1S2 GI: Normal BS, soft, nondistended, non tender MSK: No pedal edema Lines and Drains Patient Lines/Drains/Airways Status Active Lines Name: Placement date: Placement time: Site: Days: Peripheral IV 05/11/17 Antecubital Right;Outer 05/11/17 221 Antecubital 3 Diagnostics and Labs All Reports, Vitals, Nursing Notes, pertinent Imaging and Labs Reviewed. No Known Allergies Bruce Yun M.D. Department of Internal Medicine Hospitalist Yusra Crane PA - 05/14/2017 2:16 PM CDTFormatting of this note may be different from the original. Orthopedic Daily Progress Note Assessment: Beka Harris is a 82yr old male 1. Septic left CHAVEZ 2. Groin abscess - cxs positive for MRSA Subjective: Patient is about the same. Pain under control. Denies fevers/ chills. Up in chair. No acute overnight complaints. Objective: BP 101/59 | Pulse 90 | Temp 97.5 F (36.4 C) | Resp 16 | Ht 1.778 m (5' 10") | Wt 87.5 kg (193 lb) | SpO2 96% | BMI 27.69 kg/m2 Maximum Temperatures (last 24 hours) Temperature Maximum Max Temp 98.6 F (37 C) Intake and Output: 05/13 0700 - 05/14 0659 In: 2020 [Oral:990] Out: 1845 [Urine:1845] Exam: left lower extremity. No erythema. Mild discomfort with A/PROM left lower extremity. Wound left groin with drainage. Dressing intact. Dressing was not changed. Neurovascular intact. No calf tenderness noted in left lower extremity. Lab Results Component Value Date WBC 4.9 05/13/2017 RBC 2.97 (L) 05/13/2017 HEMOGLOBIN 8.7 (L) 05/13/2017 HEMATOCRIT 28.1 (L) 05/13/2017 MCV 94.6 05/13/2017 MCH 29.3 05/13/2017 MCHC 31.0 (L) 05/13/2017 RDW 16.3 03/21/2017 PLTCOUNT 163 05/13/2017 NEUTROPCT 72.4 05/11/2017 BANDPCT 2 01/15/2017 LYMPHSPCT 13.3 05/11/2017 MONOSPCT 9.2 05/11/2017 EOSPCT 4.4 05/11/2017 BASOPHILPCT 0.7 05/11/2017 METAMYELOPCT 1.0 01/08/2017 Lab Results Component Value Date PT 17.3 (H) 01/07/2017 INR 1.5 (L) 01/07/2017 Labs were reviewed. Plan: Continue abx per ID. WBAT LLE. Plan for stage 1 left CHAVEZ Sunday with Dr. Castillo. Groin abscesscultures positive for MRSA with a history of MRSA bacteremia winter 2016. Most likely tracts to infected CHAVEZ. Patient can continue with AAT as tolerated in the meantime. Will continue to follow and plan for surgery Sunday.Shelley Redding, [facility] - 05/14/2017 12:40 PM CDTFormatting of this note may be different from the original. Mr. Harris continues on Vancomycin per pharmacy protocol for left hip infection The patient is on day 3 of receiving Vancomycin and current dose is 1250mg q12h. Labs: WBC Date/Time Value Ref Range Status 05/13/2017 05:59 AM 4.9 4.0 - 11.0 K/uL Final 05/11/2017 10:19 PM 6.8 4.0 - 11.0 K/uL Final 03/21/2017 5.2 Final 02/05/2017 07:10 AM 5.9 4.5 - 12.0 Final 01/29/2017 5.4 Final Lab Results Component Value Date CREATSERUM 0.80 05/13/2017 CREATSERUM 0.80 05/13/2017 CREATSERUM 0.82 05/11/2017 Vancomycin Trough Date/Time Value Ref Range Status 05/14/2017 10:45 AM 19.3 10.0 - 20.0 ug/mL Final Vancomycin Random Date/Time Value Ref Range Status 01/11/2017 04:55 AM 12.5 ug/mL Final Cultures: Lab Results Component Value Date CULTGROWTH Moderate amount Staphylococcus aureus, MRSA (!) 05/12/2017 Max Temperature: Temp (24hrs), Av F (36.7 C), Min:97.5 F (36.4 C), Max:98.6 F (37 C) Estimated CrCl: Estimated Creatinine Clearance: 72.2 mL/min (based on Cr of 0.8) . ml/min Intake/Output: Intake/Output Summary (Last 24 hours) at 05/14/17 1240 Last data filed at 05/14/17 0820 Gross per 24 hour Intake 750 ml Output 2295 ml Net -1545 ml Other Active Antimicrobials: Antibiotics Start Stop Route Frequency Ordered 05/12/17 0120 vancomycin in dextrose 200 mL IV piggyback (premix) 1,000 mg Status: Discontinued 05/12 0120 IV Now 05/12/17 0118 05/12/17 0120 vancomycin 1,500 mg in sodium chloride 0.9% 250 mL 05/12 0356 IV Now 05/12/17 0120 05/12/17 1400 ceFAZolin (ANCEF) syringe 2000 mg/20 mL sterile water 05/12 1321 IV Give in OR 05/12/17 0846 05/12/17 2300 vancomycin 1,250 mg in sodium chloride 0.9% 250 mL -- IV Every twelve hours 05/12/17 2231 Assessment/Plan: The trough level is higher than the desired goal of 10-15 mg/L. Vancomycin will be changed to 1 gram q12h dose/interval. Pharmacy will continue to monitor per the pharmacokinetic service policy. Shelley Redding [facility] Bruce Yun MD - 05/14/2017 11:34 AM CDTFormatting of this note may be different from the original. Internal Medicine Progress Note Patient Name: Beka Harris Admit Date: 05/11/2017 CSN: [id number] Summary: Beka Harris is a 82yr male that has been hospitalized for a left groin abscess / periprosthetic septic arthritis s/p I&D growing MSSA. CT scan showed swelling of obturator muscle with a suspicion of small abnormal collections in the muscle above the acetabulum and just above its insertion at the hip. Also suspicion of abnormal collection in the anterior left obturator externus muscle. Day: 2 Interval Hx/ROS: Doing well today. VSS. No overnight events. Pain controlled. Hold Lisinopril tomorrow. Impression/Plan: 1. Left groin abscess / left hip periprosthetic septic arthritis s/p I&D growing MSSA -vancomycin per ID -repeat surgery tomorrow 2. Pre-operative risk eval -patient does have CAD with a LAD bare metal stent back in 2012. He has been doing well after that without angina like symptoms reported. -he does have atrial fibrillation as well, on digoxin and metoprolol -will have pre-operative EKG -he did have an echocardiogram back in 2017 and does show tricuspid and mitral valve insufficienciesand pulmonary hypertension -evaluation of METS is limited as his hip is the culprit in this case -he is at moderate risk for vikram-operative complications with this procedure which was relayed to him -there is no benefit to further cardiac workup (ie. Stress testing / angiogram) that's been shown toimprove outcomes in patients undergoing non-cardiac surgery Atrial fibrillation on digoxin and toprol CAD on aspirin, metoprolol, lisinopril, simvastatin Dyslipidemia on simvastatin HTN on lisinopril, hctz BPH on terazosin, finasteride Gout on allopurinol Total time spent in care of this patient 35 minutes with greater than 50 percent of the time spent in counseling and coordination of care as described above alongside reviewing chart, discussing with nursing, phone calls, reviewing labs, and imaging. IVF: --- DVT Prophylaxis: Heparin 5000 units SC every 8 hours Code status: Full Code Disposition: SNF? Current Vital Signs Temp: 97.5 F (36.4 C) BP: 101/59 Pulse: 90 O2 Device: Room Air Resp: 16 Pain Ratin (out of 10) Weight: 87.5 kg (193 lb) SpO2: 96 % 24 hour Intake/Output 05/13 0700 - 05/14 0659 In: 2020 [Oral:990] Out: 1845 [Urine:1845] Physical Exam: General: Awake, alert and not in distress RS: CTA, no crackles, no wheezes CVS: Normal Rate, RR, Normal S1S2 GI: Normal BS, soft, nondistended, non tender MSK: No pedal edema Lines and Drains Patient Lines/Drains/Airways Status Active Lines Name: Placement date: Placement time: Site: Days: Peripheral IV 05/11/17 Antecubital Right;Outer 05/11/172214 Antecubital 2 Diagnostics and Labs All Reports, Vitals, Nursing Notes, pertinent Imaging and Labs Reviewed. No Known Allergies Bruce Yun M.D. Department of Internal Medicine Hospitalist Lorraine Rosas MD - 05/13/2017 7:06 PM CDTFormatting of this note may be different from the original. Assessment/Plan: Active Problems: Abscess of groin, left Failed total joint replacement 1) left groin abscess and left hip periprosthetic septic arthritis , s/p I and d Of wound in ED , wound abscess growing staph aureus patient currently on vancomycin Ct scan showed :Swelling of obturator muscle with a suspicion of small abnormal collections in the muscle above the acetabulum and just above its insertion at the hip. Also suspicion of abnormal collection in the anterior left obturator externus muscle. Orthopedics aware , surgery is planned on Sunday Infectious disease consulted 2),Plans on left hip revision along with drainage of periprosthetic septic arthritis 3) atrial fibrillation, currently on digoxin and Toprol anticoagulation currently held in anticipation of surgery 4)DVT prophylaxis currently on subcutaneous heparin patient is full code Subjective: 82-year-old gentleman with history of atrial fibrillation, congestive heart failure presenting with left groin abscess and periprosthetic septic arthritis. The patient is scheduled to have surgery on Sunday by orthopedics. He denies concerns today, denies fevers overnight Objective: Vital signs in last 24 hours: Vitals: 05/13/17 0441 05/13/17 0853 05/13/17 1221 05/13/17 1533 BP: 97/54 108/70 99/60 94/52 Pulse: 96 70 54 84 Resp: 16 16 16 16 Temp: 97.5 F (36.4 C) 97.3 F (36.3 C) 97.6 F (36.4 C) 97.7 F ( 36.5 C) SpO2: 94% 95% 96% 95% Weight: Height: Weight change: Intake/Output Summary (Last 24 hours) at 05/13/17 1914 Last data filed at 05/13/17 1725 Gross per 24 hour Intake 2020 ml Output 2395 ml Net -375 ml @IPPE@ REVIEW OF SYSTEMS: Review of Systems Constitutional: negative for fever HEENT negative for sore throat and trouble swallowing Respiratory negative for cough shortness of breath and wheezing Cardiovascular negative for chest pain and leg swelling Musculoskeletal positive for arthralgias skin positive for wound in the left groin region Neurological denies headaches and lightheadedness Psychiatric negative for confusion PHYSICAL EXAM: VITAL SIGNS: BP 94/52 Pulse 84 Temp 97.7 F (36.5 C) Resp 16 Ht 1.778 m ( 5' 10") Wt 87.5 kg (193 lb) SpO2 95% BMI 27.69 kg/m2|| Physical Exam physical exam vitals reviewed constitutional he is in no distress cardiovascular irregular heart rate noted Chest effort normal no wheezes no rales Abdominal soft bowel sounds are heard musculoskeletal exhibits no edema Skin left groin examined no redness status post incision and drainage Lab Results: Micro Results: Other Cultures (Last 60 days) Date/Time Component Value 05/11/172241 Culture Result No Growth - Will continue to monitor for 5 days. 05/11/17 2219 Culture Result No Growth - Will continue to monitor for 5 days. 04/16/17 1420 Culture Result No growth at 5 days 04/16/17 1410 Culture Result No growth at 5 days Studies/Results: Ct Pelvis With Contrast Result Date: 05/12/2017 Patient Name: BEKA HARRIS Date of : 1935 Procedure: CT PELVIS WITH CONTRASTDate of Service: 05/12/2017 -------- ADDENDUM #1 -------- I called this report to TATA WATERS at 05/12/2017 2:00 AM. Finalized by: Chapito Cox MD on 05/12/2017 2:00 AM -------- ORIGINAL REPORT-------- EXAM : CT PELVIS WITH CONTRAST INDICATION: Scrotal mass or lump,left groin abscess, possible hip involvement COMPARISON(S): None Available TECHNIQUE: Multidetector imaging with IV contrast from the mid renal level to the proximal femoral shafts below the level of the tip of the femoral shank of the left prosthesis. Axial routine and reformatted sagittal and coronal images. FINDINGS : There is abnormal swelling of the left iliopsoas. The muscle is swollen down to the level of the hip. There is the suspicion of a 1.5 x 2 cm hypodense area in the muscle just above the acetabulum centered on axial image 38. There are 2 tiny adjacent hypodense areas. Distally, the muscle is swollen down to its and insertion with possible some small additional hypodensities in the more distal muscle (axial image extending 4. There is left hip prosthesis which obscures adjacent anatomy. The deep musculatureand bone are difficult to evaluate. Left obturator muscle also appears swollen compared to that on the right with a somewhat poorly defined hypodense area in its anterior aspect on axial image 76. There is lucency at the bone cement interface along the femoral shank. There is lucency in the lateral acetabulum adjacent to screws for the acetabular component. Degenerative changes of the lower lumbar spine. There is degenerative narrowing at L5-S1 discs with intradiscal gas. SI joints are narrowed andpartially fused. The right hip joint space is narrowed. The gallbladder is incompletely visualized.There may be small noncalcified stones versus mural thickening along the posterior gallbladder. IMPRESSION: Swelling of obturator muscle with a suspicion of small abnormal collections in the muscle above the acetabulum and just above its insertion at the hip. Also suspicion of abnormal collection in the anterior left obturator externus muscle. These are difficult these areas are not well-defined butsmall abscesses cannot be excluded. Metal artifact from a left hip prosthesis obscures adjacent bone and soft tissue. There may be small noncalcified stones versus mural thickening along the posterior gallbladder. Gallbladder is incompletely visualized. Appropriate radiation dose reduction devicesand/or manual techniques for appropriate moderation of exposure was utilized. Finalized by: Chapito Cox MD on 05/12/2017 1:30 AM Patient/Procedure Information: [facility] MRN/CHAYA: [id number] Order Number: [id number] Accession Number: [id number] Ordering Provider: TATA WATERS Authorizing Provider: TATA WATERS Medications: Current Facility-Administered Medications Medication Dose Route Frequency allopurinol (ZYLOPRIM) tablet 300 mg 300 mg Oral daily aspirin enteric coated tablet 81 mg 81 mg Oral daily [START ON 05/14/2017] digoxin (LANOXIN) tablet 0.125 mg 0.125 mg Oral 1 time a day Sun diphenhydrAMINE (BENADRYL) capsule 25 mg 25 mg Oral 1 time a day prn finasteride (PROSCAR) tablet 5 mg 5 mg Oral daily hydroCHLOROthiazide tablet 25 mg 25 mg Oral daily lisinopril (PRINIVIL, ZESTRIL) tablet 40 mg 40 mg Oral daily metoprolol succinate (TOPROL XL) SR tablet (24 hr) 100 mg 100 mg Oral daily simvastatin (ZOCOR) tablet 40 mg 40 mg Oral daily terazosin (HYTRIN) capsule 5 mg 5 mg Oral at bedtime sodium chloride 0.9% prefilled 10 mL syringe (Materials Management Item) 10 mL 10 mL IV As often as necessary prn heparin (porcine) injection solution 5,000 Units 5,000 Units Subcutaneous Every 12 hours melatonin tablet 3 mg 3 mg Oral Bedtime prn acetaminophen (TYLENOL) tablet 650 mg 650 mg Oral Every 4 hours prn bisacodyl (DULCOLAX) suppository 10 mg 10 mg Rectal 1 time a day prn ondansetron (ZOFRAN) injection solution 4 mg 4 mg IV Every 4 hours prn promethazine (PHENERGAN) injection solution 12.5 mg 12.5 mg IV Every 6 hours prn Or promethazine (PHENERGAN) intramuscular injection solution 12.5 mg 12.5 mg Intramuscular Every 6hours prn senna-docusate sodium (SENOKOT-S;PERICOLACE) tablet 1 tablet 1 tablet Oral 2 times a day prn vancomycin 1,250 mg in sodium chloride 0.9% 250 mL 1,250 mg IV Every 12 hours iohexol (OMNIPAQUE) (140 mg/mL) 50 mL in water 950 mL oral contrast (adult) 450-1,000 mL Oral Now imaging Danya Chow [facility] - 05/12/2017 10:40 PM CDTFormatting of this note may be different from the original. Vancomycin Initial Consult Note Mr. Harris was admitted on 05/11/2017 and today has been initiated on Vancomycin per pharmacy protocol for Left Hip Infection, h/o MRSA bacteremia. Labs: Vancomycin Trough Date/Time Value Ref Range Status 01/06/2017 08:41 PM 30.6 (H) 10.0 - 20.0 ug/mL Final WBC Date/Time Value Ref Range Status 05/11/2017 10:19 PM 6.8 4.0 - 11.0 K/uL Final 03/21/2017 5.2 Final Lab Results Component Value Date CREATSERUM 0.82 05/11/2017 Cultures: Max Temperature: Temp (24hrs), Av.5 F (36.4 C), Min:97.2 F (36.2 C) , Max:97.8 F (36.6 C) Estimated CrCl: Estimated Creatinine Clearance: 70.5 mL/min (based on Cr of 0.82 ). ml/min Intake/Output: Intake/Output Summary (Last 24 hours) at 05/12/17 2241 Last data filed at 05/12/17 1430 Gross per 24 hour Intake 0 ml Output 350 ml Net -350 ml Other Active Antimicrobial Agents: Plan: Dose of 1500mg given in ER at approximately 02:00 today. We have initiated intravenous Vancomycin therapy at a dose of 1250mg every 12 hours. The goal trough range will be 10-15mcg/ml. Pharmacy will monitor and if indicated, adjust dose and/or frequency per the Pharmacy and Therapeutics Committee approved pharmacokinetic service policy. Thank you very much for the consult. We will continue to follow along with you. Danya Chow, [facility] Yusra Banegas PA - 05/12/2017 6:35 PM CDTFormatting of this note may be different from the original. Ortho Inpatient Daily Progress Note Beka Harris is a 82yr old male admitted on 05/11/2017. Assessment / Plan Active Problems: Abscess of groin, left Failed total joint replacement Resolved Problems: * No resolved hospital problems. * Dx: Infected left total hip arthroplasty Plan: I reviewed the clinical exam, groin abscess and surgical plans with Beka and his . The abscess most likely tracts from the infected CHAVEZ. Plan to proceed with stage 1 left CHAVEZ as scheduled for Sunday. Will continue to follow cultures in the meantime. The risks, benefits, and alternatives of a total knee arthroplasty were discussed in detail with the patient today. We discussed other commonrisks and uncommon risks and some outcomes can be unpredictable. We specifically discussed the risks of infection, bleeding, blood loss, need for transfusion, blood clots, implant problems, implant wear, potential need of revision surgery, potential fracture, continued pain, scar tissue and poor range of motion, and failure to meet the patient's expectations. We discussed some of the ways to limit the use potential complications such as the use of antibiotics and blood thinners and the fact that all of her methods of trying to prevent complications cannot be 100% successful. Patient's questions were answered to their satisfaction. HPI / History / ROS CARL Ireland is a pleasant 82 yo male who is scheduled for a stage 1 left CHAVEZ revision with Dr. Castillo Sunday. He presented to the ED yesterday with a 2 day history of worsening groin pain and abscess that was increasing in pain. The abscess was I&D in an outside ED and packed. He notes he is doing better following the I&D. He has a complex history with previous hospitalization for MRSA bacteremia in January 2017. He does continue to have elevated ESR and CRP with pending groin abscess cultures. Was admitted for the hip infection/ groin abscess. Review of Systems General: denies recent fevers, chills or sweats. Denies recent weight loss or gain. HEENT: denies any recent vision changes. No diplopia. Denies any changes with smell, taste, or dentition. Neck: denies stiffness, rigidity, or lymphadenopathy Chest: Denies dyspnea, PND, wheezing, coughing, or bloody sputum Heart: Denies recent angina, palpitation, or arrhythmia. GI: denies recent dyspepsia, constipation, loose stools, melena, or peptic ulcers : Denies UTI, increased urinary frequency, renal insufficiency, or renal lithiasis Musculoskeletal: + left hip pain. Endocrine: Denies DM or thyroid dysfunction Integument: Denies recent rashes, lesions, abrasions, or lacerations Psychiatric: Denies depression, anxiety, or bipolar Neurologic: Denies history or stroke, syncope, or chronic headaches Physical / Results Current Vital Signs Temp: 97.2 F (36.2 C) BP: 113/67 Weight: 87.5 kg (193 lb) SpO2: 97 % Resp: 16 Pulse: 67 Current BMI (>50=increased risk): 27.69 O2 Device: Room Air Pain Ratin Physical Exam Constitutional: He is oriented to person, place, and time. He appears well- developed and well-nourished. No distress. HENT: Head: Normocephalic and atraumatic. Eyes: Pupils are equal, round, and reactive to light. Neck: Normal range of motion. Neck supple. Cardiovascular: Normal rate. Pulmonary/Chest: Effort normal. Abdominal: Soft. Bowel sounds are normal. He exhibits no distension. Musculoskeletal: He exhibits tenderness (left hip). Neurological: He is alert and oriented to person, place, and time. Skin: Skin is warm and dry. No rash noted. No erythema. Psychiatric: He has a normal mood and affect. His behavior is normal. Judgment and thought content normal. Vitals reviewed. Right Hip Exam Tenderness The patient is experiencing no tenderness. Range of Motion The patient has normal right hip ROM. Muscle Strength The patient has normal right hip strength. Tests ISMAEL: negative Other Erythema: absent Sensation: normal Pulse: present Comments: Compartments are soft and supple. EHL/FHL 5/5. Left Hip Exam Tenderness The patient is experiencing tenderness in the lateral and anterior. Muscle Strength Abduction: 4/5 Adduction: 4/5 Flexion: 4/5 Other Erythema: absent Scars: present (left hip lateral incision without erythema or drainage) Sensation: normal Pulse: present Comments: Moderate discomfort with hip ROM. Compartments are soft and supple. EHL/FHL 5/5. Dressingintact at groin abscess. Packing in place. No erythema noted. Wound to left groin with purulent drainage. Dressing was not changed. Elizabeth Neely, PHARM STRAINER TENDER - 05/12/2017 9:38 AM CDT05/12/2017 9:38 AM -- Patient was seen by the pharmacy med reconciliation team and HOME MEDICATIONS have been reconciled and updated to match the patient's home usage. Added to med list: Acetaminophen 500 mg - take 2 tablets (1000 mg) by mouth every 8 hours as needed for pain Saline Nasal [place] - spray 2 sprays into each nostril two times a day as needed for congestion Bengay cream - apply to the affected area twice daily Changed on med list: Hydrochlorothiazide 50 mg - changed from taking 1 tablet by mouth once daily to take 0.5 tablet (25 mg) by mouth one time per day Simvastatin - changed from a 20 mg tablet taking 2 tablets (40 mg) by mouth 1 time per day to a 80 mg tablet taking 0.5 tablet (40 mg) by mouth at bedtime Removed on med list: Bisacodyl 5 mg tablet - take 5 mg by mouth 2 times a day as needed Patient denies use of other inhalers, creams/ointments, eye/ear drops, patches or injectables, OTC, vitamins and/or herbal products. Elizabeth Neely, PHARM STRAINER TENDER Paxton Iverson MD - 05/12/2017 7:48 AM CDTThis is a supplemental progress note. For full details of the H&P, please see note dated today by Dr. Sales. Updates to assessment and plan are as follows: 1. 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 Hx of MRSA bacteremia - CT Pelvis revealed presence of iliopsoas/obturator muscle swelling - Blood cultures and would cultures drawn in ED, pending, no leukocytosis - Patient received IV Vancomycin in ED, will continue with vancomycin and awaiting further recommendations from ID. Appreciate their input - Discussed with orthopedic services who will evaluate patient. Currently NPO, may advance diet if no surgery is planned today (per patient, was scheduled to have a revision with Dr. Brandt Castillo) - Continue with IV fluids - NS @ 75 ml/hr Chronic Conditions - Hypertension - Lisinopril 40, HCTZ 50, Toprol XL 100 - CHF - ECHO 01/09/17 - EF - 55%, Mild to moderate MR, Severe TR - Atrial Fibrillation - Digoxin, Toprol XL 100 mg, anticoagulation was discontinued during last hospitalization in setting of hematuria. Patient is open to resuming anticoagulation for stroke prevention. Will hold it for now, until evaluated by Orthopedics. - Gout - Allopurinol - BPH - Finasteride, Terazosin (if blood pressure is low recommend changing it to Tamsulosin) DVT Prophylaxis - Heparin SC Code Status - Full Code Disposition: will get PT/OT and get CM for discharge planning. Paxton Iverson MD Internal Medicine Resident, PGY-2 Pager # [phone] Associated attestation - Angel Quintanilla MD - 05/13/2017 1:13 PM CDTI discussed the patient with the resident and personally interviewed and examined the patient. I agree with the patient's diagnosis and management. ANGEL QUINTANILLA MD in this encounter Plan of Treatment Date Type Specialty Care Team Description 05/29/2017 Office Visit Orthopedics Brandt Castillo MD [address] [place] [id number] [phone] 08/06/2017 Office Visit Infectious Diseases Esme Cochran MD [address] [place] [address] [phone] Name Priority Associated Diagnoses Date/Time CULTURE, ACID FAST Routine Failed total hip 05/16/2017 3:07 PM CDT BACILLUS WITH STAIN arthroplasty, initial encounter CULTURE, ACID FAST Routine Failed total hip 05/16/2017 3:08 PM CDT BACILLUS WITH STAIN arthroplasty, initial encounter CULTURE FUNGAL, OTHER Routine Failed total hip 05/16/2017 3:07 PM CDT arthroplasty, initial encounter CULTURE FUNGAL, OTHER Routine Failed total hip 05/16/2017 3:08 PM CDT arthroplasty, initial encounter TISSUE EXAM Routine Failed total hip 05/16/2017 3:08 PM CDT arthroplasty, initial encounter Name Priority Associated Diagnoses Order Schedule CREATININE Routine every 48 hours until discontinued starting 05/13/2017, 5 completed RENAL FUNCTION PANEL MELLO Early AM draw for labs until discontinued starting 05/16/2017, 6 completed CULTURE FUNGAL, OTHER Routine Failed total hip ONCE for 1 Occurrences arthroplasty, initial starting 05/16/2017 encounter CULTURE FUNGAL, OTHER Routine Failed total hip ONCE for 1 Occurrences arthroplasty, initial starting 05/16/2017 encounter TISSUE EXAM Routine Failed total hip ONCE for 1 Occurrences arthroplasty, initial starting 05/16/2017, 1 encounter completed Health Maintenance Due Date Last Done Comments Zoster Vaccine (1 of 2 - RZV, 02/10/1984 Shingrix) Pneumococcal 65yr+ Low/Med Risk (2 05/01/2007 04/30/2006 of 2 - PCV13) Tetanus Vaccine 06/22/2010 06/22/2000 Influenza Vaccine (#1) 2016 Diabetes Screening 05/20/2020 05/20/2017, 05/19/2017, 05/18/2017, Additional history exists as of this encounter Implants Implanted Type Area Looping Inspector Device Expiration Model / Identifier Date Serial / Lot Stnt Vision Rx 3.50x18 N [id number]/2/2013 Cardiovascular WEISS / Implanted: 01/06/2013 (Quantity not on file) / Explanted: [id number] Hip Lnr Durasul Pe 02p17kz N [id number] Ea1 - Sn/A Left: BONNY 2017 [id number] / Implanted: Qty: 1 on 05/16/2017 by Brandt Castillo MD HIP N/A / [id number] Cbl Surg Dall Miles Stry 2mm N 6704-0-510 Ea1 - Sn/A Left: REMBERTO 02/07 [id number] / Implanted: Qty: 1 on 05/16/2017 by Brandt Castillo MD HIP N/A / [id number] Cbl Surg Dall Miles Stry 2mm N [id number] Ea1 - Sn/A Left: REMBERTO 02/24 [id number] / Implanted: Qty: 1 on 05/16/2017 by Brandt Castillo MD HIP N/A / [id number] Cmnt Bone Palacos R+Gentamicin N [id number] Ea1 - Sn/A Left: BONNY 02/05/[id number] / Implanted: Qty: 1 on 05/16/2017 by Brandt Castillo MD HIP N/A / [id number] Cmnt Bone Palacos R+Gentamicin N Ea1 - Sn/A Left: BONNY 10/05/2020 / Implanted: Qty: 1 on 05/16/2017 by Brandt Castillo MD HIP N/A / [id number] Hip Stem [place] Sts [id number] N Ea - Sn/A Left: BONNY 2026 / Implanted: Qty: 1 on 05/16/2017 by Brandt Castillo MD HIP N/A / [id number] Hip Body Cone Std [id number] N Ea - Sn/A Left: BONNY 2027 / Implanted: Qty: 1 on 05/16/2017 by Brandt Castillo MD HIP N/A / [id number] Hip Fem Hd Cocr Type1 44mm+6mm N [id number] Ea - Sn/A Left: BONNY 12/[id number] / Implanted: Qty: 1 on 05/16/2017 by Brandt Castillo MD HIP N/A / [id number] as of this encounter Procedures Procedure Name Priority Date/Time Associated Comments Diagnosis VANCOMYCIN TROUGH Timed Routine 05/21/2017 9:57 Results for this AM CDT procedure are in the results section. HEMOGLOBIN Routine 05/21/2017 4:23 Results for this AM CDT procedure are in the results section. CREATININE Timed Routine 05/21/2017 4:23 Results for this AM CDT procedure are in the results section. RENAL FUNCTION PANEL [facility] 05/21/2017 4:23 Results for this AM CDT procedure are in the results section. TROPONIN I [facility]LL[facility] 05/20/2017 2:24 Results for this PM CDT procedure are in the results section. DIGOXIN Routine 05/20/2017 2:24 Results for this PM CDT procedure are in the results section. MAGNESIUM ME[facility] 05/20/2017 2:24 Results for this PM CDT procedure are in the results section. COMPLETE BLOOD COUNT [facility] 05/20/2017 5:30 Results for this WITHOUT DIFFERENTIAL AM CDT procedure are in the results section. RENAL FUNCTION PANEL [facility] 05/20/2017 5:30 Results for this AM CDT procedure are in the results section. TYPE AND SCREEN STAT 05/19/2017 6:01 Results for this AM CDT procedure are in the results section. PREPARE AND HOLD RED STAT 05/19/2017 5:59 Results for this BLOOD CELLS - BLOOD AM CDT procedure are in BANK the results section. COMPLETE BLOOD COUNT MELL[facility] 05/19/2017 4:58 Results for this WITHOUT DIFFERENTIAL AM CDT procedure are in the results section. CREATININE Timed Routine 05/19/2017 4:58 Results for this AM CDT procedure are in the results section. VANCOMYCIN RANDOM Timed Routine 05/19/2017 4:58 Results for this AM CDT procedure are in the results section. RENAL FUNCTION PANEL ME[facility] 05/19/2017 4:58 Results for this AM CDT procedure are in the results section. OSMOLALITY, URINE Routine 05/18/2017 8:11 Results for this PM CDT procedure are in the results section. SODIUM, URINE Routine 05/18/2017 8:11 Results for this PM CDT procedure are in the results section. PREPARE AND HOLD RED STAT 05/18/2017 5:50 Results for this BLOOD CELLS - BLOOD AM CDT procedure are in BANK the results section. COMPLETE BLOOD COUNT MELLO 05/18/2017 5:23 Results for this WITHOUT DIFFERENTIAL AM CDT procedure are in the results section. RENAL FUNCTION PANEL ME[facility] 05/18/2017 5:23 Results for this AM CDT procedure are in the results section. OSMOLALITY Routine 05/18/2017 12:08 Results for this AM CDT procedure are in the results section. HEPATIC FUNCTION Routine 05/18/2017 12:08 Results for this PANEL AM CDT procedure are in the results section. CK Routine 05/18/2017 12:08 Results for this AM CDT procedure are in the results section. VANCOMYCIN TROUGH Timed Routine 05/18/2017 12:08 Results for this AM CDT procedure are in the results section. DIGOXIN Timed Routine 05/17/2017 9:54 Results for this AM CDT procedure are in the results section. COMPLETE BLOOD COUNT MELL[facility] 05/17/2017 5:23 Results for this WITHOUT DIFFERENTIAL AM CDT procedure are in the results section. HEMOGLOBIN ME[facility] 05/17/2017 5:23 Results for this AM CDT procedure are in the results section. MAGNESIUM Routine 05/17/2017 5:23 Results for this AM CDT procedure are in the results section. CREATININE Timed Routine 05/17/2017 5:23 Results for this AM CDT procedure are in the results section. RENAL FUNCTION PANEL [facility] 05/17/2017 5:23 Results for this AM CDT procedure are in the results section. BASIC METABOLIC PANEL ME[facility] 05/17/2017 5:23 Results for this AM CDT procedure are in the results section. VANCOMYCIN TROUGH Timed Routine 05/16/2017 11:14 Results for this PM CDT procedure are in the results section. COMPLETE BLOOD COUNT STAT 05/16/2017 5:10 Results for this WITHOUT DIFFERENTIAL PM CDT procedure are in the results section. PREPARE AND HOLD RED STAT 05/16/2017 3:25 Results for this BLOOD CELLS - BLOOD PM CDT procedure are in BANK the results section. PREPARE AND HOLD RED STAT 05/16/2017 2:06 Results for this BLOOD CELLS - BLOOD PM CDT procedure are in BANK the results section. PREPARE AND HOLD RED STAT 05/16/2017 2:06 Results for this BLOOD CELLS - BLOOD PM CDT procedure are in BANK the results section. LEFT TOTAL HIP 05/16/2017 1:10 Failed total hip ARTHROPLASTY STAGE 1 PM CDT arthroplasty, REVISION initial encounter COMPLETE BLOOD COUNT MELLO 05/16/2017 8:44 Results for this WITHOUT DIFFERENTIAL AM CDT procedure are in the results section. RENAL FUNCTION PANEL ME[facility] 05/16/2017 8:44 Results for this AM CDT procedure are in the results section. TYPE AND SCREEN STAT 05/15/2017 3:10 Results for this PM CDT procedure are in the results section. COLLECT AND HOLD Routine 05/15/2017 5:43 Results for this LAVENDER (EDTA) TOP AM CDT procedure are in TUBE the results section. CREATININE Timed Routine 05/15/2017 5:43 Results for this AM CDT procedure are in the results section. COLLECT AND HOLD Routine 05/14/2017 10:45 Results for this LAVENDER (EDTA) TOP AM CDT procedure are in TUBE the results section. VANCOMYCIN TROUGH Timed Routine 05/14/2017 10:45 Results for this AM CDT procedure are in the results section. COMPLETE BLOOD COUNT Routine 05/13/2017 5:59 Results for this WITHOUT DIFFERENTIAL AM CDT procedure are in the results section. CREATININE Timed Routine 05/13/2017 5:59 Results for this AM CDT procedure are in the results section. COMPREHENSIVE Routine 05/13/2017 5:59 Results for this METABOLIC PANEL AM CDT procedure are in the results section. LAB ONLY-COMPLETE STAT 05/11/2017 10:19 Results for this BLOOD COUNT WITH PM CDT procedure are in DIFFERENTIAL the results section. COLLECT AND HOLD BLUE STAT 05/11/2017 10:19 Results for this (NACIT) TOP TUBE PM CDT procedure are in the results section. ESR STAT 05/11/2017 10:19 Results for this PM CDT procedure are in the results section. C-REACTIVE PROTEIN STAT 05/11/2017 10:19 Results for this (INFLAMMATION) PM CDT procedure are in the results section. COMPREHENSIVE STAT 05/11/2017 10:19 Results for this METABOLIC PANEL PM CDT procedure are in the results section. COMPLETE BLOOD COUNT STAT 05/11/2017 10:19 Results for this WITH DIFFERENTIAL PM CDT procedure are in the results section. in this encounter Results VANCOMYCIN TROUGH (05/21/2017 9:57 AM) Component Value Ref Range Vancomycin Trough 16.1 10.0 - 20.0 ug/mL Specimen Performing Laboratory Blood [address] [place] [address] HEMOGLOBIN (05/21/2017 4:23 AM) Component Value Ref Range Hemoglobin 7.0 (L) 13.5 - 17.5 g/dL Specimen Performing Laboratory Blood [facility] [address] [place], [place] [address] RENAL FUNCTION PANEL (05/21/2017 4:23 AM) Component Value Ref Range Glucose 84 70 - 100 mg/dL BUN 34 (H) 6 - 22 mg/dL Creatinine 0.90 0.80 - 1.30 mg/dL BUN/Creatinine Ratio 37.8 (H) 10.0 - 25.0 Sodium 135 135 - 145 meq/L Potassium 3.8 3.5 - 5.3 meq/L Chloride 100 99 - 110 meq/L CO2 25 23 - 32 meq/L Anion Gap with K 14 6 - 20 meq/L Calcium 8.4 (L) 8.5 - 10.2 mg/dL Phosphorus 3.2 2.5 - 4.5 mg/dL Albumin 2.2 (L) 3.6 - 5.0 g/dL Corrected Calcium 9.8 8.5 - 10.5 mg/dL Age 82 Years eGFR Non- 81 >=60 mL/min/1.73m2 eGFR >90 >=60 mL/min/1.73m2 Fasting No Yes, No, Unknown Specimen Performing Laboratory Blood [facility] [address] [place], [place] [address] CREATININE (05/21/2017 4:23 AM) Component Value Ref Range Creatinine 0.90 0.80 - 1.30 mg/dL Age 82 Years eGFR Non- 81 >=60 mL/min/1.73m2 eGFR >90 >=60 mL/min/1.73m2 Specimen Performing Laboratory Blood [facility] [address] [place], [place] [address] DIGOXIN (05/20/2017 2:24 PM) Component Value Ref Range Digoxin <0.2 (L) 0.5 - 1.5 ng/mL Specimen Performing Laboratory Blood [address] [address] TROPONIN I (05/20/2017 2:24 PM) Component Value Ref Range Troponin I 0.023 0.000 - 0.028 ng/mL Specimen Performing Laboratory Blood [address] [address] MAGNESIUM (05/20/2017 2:24 PM) Component Value Ref Range Magnesium 1.7 (L) 1.8 - 2.4 mg/dL Specimen Performing Laboratory Blood [facility] [address] [place] [address] COMPLETE BLOOD COUNT WITHOUT DIFFERENTIAL (05/20/2017 5:30 AM) Component Value Ref Range WBC 4.7 4.0 - 11.0 K/uL RBC 2.38 (L) 4.40 - 5.80 M/uL Hemoglobin 7.0 (L) 13.5 - 17.5 g/dL Hematocrit 22.2 (L) 40.0 - 50.0 % MCV 93.3 80.0 - 98.0 fL MCH 29.4 25.5 - 34.0 pg MCHC 31.5 31.5 - 36.5 g/dL RDW-CV 17.3 (H) 11.5 - 15.5 % RDW-SD 55.6 (H) 35.5 - 50.0 fl Platelet Count 152 140 - 400 K/uL MPV 9.5 8.5 - 12.0 fL Specimen Performing Laboratory Blood [facility] [address] [place] [address] RENAL FUNCTION PANEL (05/20/2017 5:30 AM) Component Value Ref Range Glucose 88 70 - 100 mg/dL BUN 40 (H) 6 - 22 mg/dL Creatinine 0.90 0.80 - 1.30 mg/dL BUN/Creatinine Ratio 44.4 (H) 10.0 - 25.0 Sodium 134 (L) 135 - 145 meq/L Potassium 3.8 3.5 - 5.3 meq/L Chloride 97 (L) 99 - 110 meq/L CO2 24 23 - 32 meq/L Anion Gap with K 17 6 - 20 meq/L Calcium 8.1 (L) 8.5 - 10.2 mg/dL Phosphorus 3.3 2.5 - 4.5 mg/dL Albumin 2.2 (L) 3.6 - 5.0 g/dL Corrected Calcium 9.5 8.5 - 10.5 mg/dL Age 82 Years eGFR Non- 81 >=60 mL/min/1.73m2 eGFR >90 >=60 mL/min/1.73m2 Specimen Performing Laboratory Blood [facility] [address] [place], [place] [address] TYPE AND SCREEN (05/19/2017 6:01 AM) Component Value Ref Range ABO Type O Rh Type Positive Expiration Date 05/22/2017 23:59 Antibody Screen Negative Comment: Allogenic Red Cells Available 05/19/17 Specimen Performing Laboratory Blood [facility] BLOOD BANK [address] [place] [address] PREPARE AND HOLD RED BLOOD CELLS - BLOOD BANK (05/19/2017 5:59 AM) Component Value Ref Range BPAM Product Code M5681P80 BPAM Unit Number [id number] Unit ABO Type O Unit Rh Type POS BPAM Dispense Status TR BPAM Blood Expiration Date [id number] BPAM Coding System 5100 Product Code RBC, Leukoreduced [id number]>AS3 Unit ID [id number] Product Status Transfused Specimen Performing Laboratory LAB COMPLETE BLOOD COUNT WITHOUT DIFFERENTIAL (05/19/2017 4:58 AM) Component Value Ref Range WBC 4.6 4.0 - 11.0 K/uL RBC 2.23 (L) 4.40 - 5.80 M/uL Hemoglobin 6.5 (LL) 13.5 - 17.5 g/dL Hematocrit 20.8 (LL) 40.0 - 50.0 % MCV 93.3 80.0 - 98.0 fL MCH 29.1 25.5 - 34.0 pg MCHC 31.3 (L) 31.5 - 36.5 g/dL RDW-CV 17.2 (H) 11.5 - 15.5 % RDW-SD 55.5 (H) 35.5 - 50.0 fl Platelet Count 138 (L) 140 - 400 K/uL MPV 9.4 8.5 - 12.0 fL Specimen Performing Laboratory Blood [facility] [address] [place] [address] VANCOMYCIN RANDOM (05/19/2017 4:58 AM) Component Value Ref Range Vancomycin Random 17.0 ug/mL Specimen Performing Laboratory Blood [facility] [address] [place] [address] RENAL FUNCTION PANEL (05/19/2017 4:58 AM) Component Value Ref Range Glucose 90 70 - 100 mg/dL BUN 35 (H) 6 - 22 mg/dL Creatinine 1.00 0.80 - 1.30 mg/dL BUN/Creatinine Ratio 35.0 (H) 10.0 - 25.0 Sodium 128 (L) 135 - 145 meq/L Potassium 4.1 3.5 - 5.3 meq/L Chloride 95 (L) 99 - 110 meq/L CO2 23 23 - 32 meq/L Anion Gap with K 14 6 - 20 meq/L Calcium 7.8 (L) 8.5 - 10.2 mg/dL Phosphorus 3.1 2.5 - 4.5 mg/dL Albumin 2.3 (L) 3.6 - 5.0 g/dL Corrected Calcium 9.2 8.5 - 10.5 mg/dL Age 82 Years eGFR Non- 71 >=60 mL/min/1.73m2 eGFR 86 >=60 mL/min/1.73m2 Specimen Performing Laboratory Blood [facility] [address] [place] [address] CREATININE (05/19/2017 4:58 AM) Component Value Ref Range Creatinine 1.00 0.80 - 1.30 mg/dL Age 82 Years eGFR Non- 71 >=60 mL/min/1.73m2 eGFR 86 >=60 mL/min/1.73m2 Specimen Performing Laboratory Blood [facility] [address] [place] [place] [address] OSMOLALITY, URINE (05/18/2017 8:11 PM) Component Value Ref Range Osmolality Urine 341 (L) 390 - 1000 mOsm/kg Specimen Performing Laboratory Urine - Voided [facility] [address] [place] [address] SODIUM, URINE (05/18/2017 8:11 PM) Component Value Ref Range Sodium Urine 31 meq/L Specimen Performing Laboratory Urine - Voided [facility] [address] [place] [address] XRAY CHEST PORTABLE - (05/18/2017 2:30 PM) Specimen Performing Laboratory PS360 Narrative Patient Name: BEKA HARRIS Date of :1935 Procedure: XRAY CHEST PORTABLE Date of Service: 05/18/2017 EXAM: XRAY CHEST PORTABLE INDICATION:PICC line placement verification COMPARISON(S): 01/02/2017 FINDINGS/IMPRESSION: Right upper extremity PICC line has been placed. The tip of the catheter is difficult to see. However, I feel the catheter at least enters the mid SVC I believe I can see the tip on one of the images right about at the cavoatrial junction or low SVC. Massive cardiomegaly is present any possibility of pericardial effusion? This is a definite change from 01/02/2017. The vasculature is generous there is likely some mild venous congestion without edema. Grossly the lungs are clear I don't see any consolidation or any definite effusions. IMPRESSION: 1. New PICC line on the right probably terminates in SVC or at the cavoatrial junction. Good position. 2. Marked cardiomegaly consider pericardial effusions. 3. Suspect CHF without edema or volume overload. Finalized by: Rosalio Lassiter MD on 05/18/2017 2:51 PM Patient/Procedure Information: [facility] MRN/CHAYA: [id number] Order Number: [id number] Accession Number: [id number] Ordering Provider: ESME COCHRAN Authorizing Provider: ESME COCHRAN Procedure Note Interface, Marycruz - 05/18/2017 2:53 PM CDT Patient Name: BEKA HARRIS Date of : 1935 Procedure: XRAY CHEST PORTABLE Date of Service: 05/18/2017 EXAM: XRAY CHEST PORTABLE INDICATION:PICC line placement verification COMPARISON(S): 01/02/2017 FINDINGS/IMPRESSION: Right upper extremity PICC line has been placed. The tip of the catheter is difficult to see. However, I feel the catheter at least enters the mid SVC I believe I can see the tip on one of the images right about at the cavoatrial junction or low SVC. Massive cardiomegaly is present any possibility of pericardial effusion? This is a definite change from 01/02/2017. The vasculature is generous there is likely some mild venous congestion without edema. Grossly the lungs are clear I don't see any consolidation or any definite effusions. IMPRESSION: 1. New PICC line on the right probably terminates in SVC or at the cavoatrial junction. Good position. 2. Marked cardiomegaly consider pericardial effusions. 3. Suspect CHF without edema or volume overload. Finalized by: Rosalio Lassiter MD on 05/18/2017 2:51 PM Patient/Procedure Information: [facility] MRN/CHAYA: [id number] Order Number: [id number] Accession Number: [id number] Ordering Provider: ESME COCHRAN Authorizing Provider: ESME COCHRAN PREPARE AND HOLD RED BLOOD CELLS - BLOOD BANK (05/18/2017 5:50 AM) Component Value Ref Range BPAM Product Code [id number] BPAM Unit Number [id number] Unit ABO Type O Unit Rh Type POS BPAM Dispense Status TR BPA Blood Expiration Date [facility] Coding System 5100 Product Code RBC, Leukoreduced/Apheresis 1st cont. Unit ID [id number] Product Status Transfused Specimen Performing Laboratory LAB COMPLETE BLOOD COUNT WITHOUT DIFFERENTIAL (05/18/2017 5:23 AM) Component Value Ref Range WBC 5.4 4.0 - 11.0 K/uL RBC 2.15 (L) 4.40 - 5.80 M/uL Hemoglobin 6.4 (LL) 13.5 - 17.5 g/dL Hematocrit 20.0 (LL) 40.0 - 50.0 % MCV 93.5 80.0 - 98.0 fL MCH 29.8 25.5 - 34.0 pg MCHC 31.8 31.5 - 36.5 g/dL RDW-CV 17.5 (H) 11.5 - 15.5 % RDW-SD 55.8 (H) 35.5 - 50.0 fl Platelet Count 138 (L) 140 - 400 K/uL MPV 8.9 8.5 - 12.0 fL Specimen Performing Laboratory Blood [facility] [address] [place] [address] RENAL FUNCTION PANEL (05/18/2017 5:23 AM) Component Value Ref Range Glucose 98 70 - 100 mg/dL BUN 28 (H) 6 - 22 mg/dL Creatinine 1.00 0.80 - 1.30 mg/dL BUN/Creatinine Ratio 28.0 (H) 10.0 - 25.0 Sodium 128 (L) 135 - 145 meq/L Potassium 4.2 3.5 - 5.3 meq/L Chloride 96 (L) 99 - 110 meq/L CO2 21 (L) 23 - 32 meq/L Anion Gap with K 15 6 - 20 meq/L Calcium 7.5 (L) 8.5 - 10.2 mg/dL Phosphorus 3.2 2.5 - 4.5 mg/dL Albumin 2.3 (L) 3.6 - 5.0 g/dL Corrected Calcium 8.9 8.5 - 10.5 mg/dL Age 82 Years eGFR Non- 71 >=60 mL/min/1.73m2 eGFR 86 >=60 mL/min/1.73m2 Specimen Performing Laboratory Blood [facility] [address] [place] [address] CK (05/18/2017 12:08 AM) Component Value Ref Range CK 139 30 - 200 U/L Specimen Performing Laboratory Blood [address] [address] OSMOLALITY (05/18/2017 12:08 AM) Component Value Ref Range Osmolality 275 (L) 280 - 305 mOsm/kg Specimen Performing Laboratory Blood [address] [address] HEPATIC FUNCTION PANEL (05/18/2017 12:08 AM) Component Value Ref Range Alkaline Phosphatase 93 30 - 150 U/L AST - SGOT 16 0 - 35 U/L ALT - SGPT 11 0 - 55 U/L Bilirubin Total 0.5 0.2 - 1.2 mg/dL Bilirubin Indirect 0.2 0.0 - 0.8 mg/dL Bilirubin Direct 0.3 0.0 - 0.4 mg/dL Albumin 2.5 (L) 3.5 - 5.0 g/dL Protein Total 5.6 (L) 6.0 - 8.2 g/dL Specimen Performing Laboratory Blood [address] [address] VANCOMYCIN TROUGH (05/18/2017 12:08 AM) Component Value Ref Range Vancomycin Trough 18.2 10.0 - 20.0 ug/mL Specimen Performing Laboratory Blood [address] [address] DIGOXIN (05/17/2017 9:54 AM) Component Value Ref Range Digoxin 0.2 (L) 0.5 - 1.5 ng/mL Specimen Performing Laboratory Blood [address] [address] MAGNESIUM (05/17/2017 5:23 AM) Component Value Ref Range Magnesium 1.2 (L) 1.8 - 2.4 mg/dL Specimen Performing Laboratory Blood [address] [place] [address] HEMOGLOBIN (05/17/2017 5:23 AM) Component Value Ref Range Hemoglobin 7.9 (L) 13.5 - 17.5 g/dL Specimen Performing Laboratory Blood [place] [address] [place] [address] BASIC METABOLIC PANEL (05/17/2017 5:23 AM) Component Value Ref Range Glucose 121 (H) 70 - 100 mg/dL BUN 22 6 - 22 mg/dL Creatinine 0.70 (L) 0.80 - 1.30 mg/dL BUN/Creatinine Ratio 31.4 (H) 10.0 - 25.0 Sodium 134 (L) 135 - 145 meq/L Potassium 4.3 3.5 - 5.3 meq/L Chloride 98 (L) 99 - 110 meq/L CO2 25 23 - 32 meq/L Anion Gap with K 15 6 - 20 meq/L Calcium 8.1 (L) 8.5 - 10.2 mg/dL Age 82 Years eGFR Non- >90 >=60 mL/min/1.73m2 eGFR >90 >=60 mL/min/1.73m2 Specimen Performing Laboratory Blood [place] [address] [facility] [address] [place], [place] [address] COMPLETE BLOOD COUNT WITHOUT DIFFERENTIAL (05/17/2017 5:23 AM) Component Value Ref Range WBC 5.9 4.0 - 11.0 K/uL RBC 2.67 (L) 4.40 - 5.80 M/uL Hemoglobin 7.9 (L) 13.5 - 17.5 g/dL Hematocrit 25.0 (L) 40.0 - 50.0 % MCV 93.6 80.0 - 98.0 fL MCH 29.6 25.5 - 34.0 pg MCHC 31.6 31.5 - 36.5 g/dL RDW-CV 17.6 (H) 11.5 - 15.5 % RDW-SD 57.4 (H) 35.5 - 50.0 fl Platelet Count 154 140 - 400 K/uL MPV 9.2 8.5 - 12.0 fL Specimen Performing Laboratory Blood [facility] [address] [place] [address] RENAL FUNCTION PANEL (05/17/2017 5:23 AM) Component Value Ref Range Glucose 121 (H) 70 - 100 mg/dL BUN 22 6 - 22 mg/dL Creatinine 0.70 (L) 0.80 - 1.30 mg/dL BUN/Creatinine Ratio 31.4 (H) 10.0 - 25.0 Sodium 134 (L) 135 - 145 meq/L Potassium 4.3 3.5 - 5.3 meq/L Chloride 98 (L) 99 - 110 meq/L CO2 25 23 - 32 meq/L Anion Gap with K 15 6 - 20 meq/L Calcium 8.1 (L) 8.5 - 10.2 mg/dL Phosphorus 3.1 2.5 - 4.5 mg/dL Albumin 2.5 (L) 3.6 - 5.0 g/dL Corrected Calcium 9.3 8.5 - 10.5 mg/dL Age 82 Years eGFR Non- >90 >=60 mL/min/1.73m2 eGFR >90 >=60 mL/min/1.73m2 Specimen Performing Laboratory Blood [facility] [address] [place] [address] CREATININE (05/17/2017 5:23 AM) Component Value Ref Range Creatinine 0.70 (L) 0.80 - 1.30 mg/dL Age 82 Years eGFR Non- >90 >=60 mL/min/1.73m2 eGFR >90 >=60 mL/min/1.73m2 Specimen Performing Laboratory Blood [facility] [address] [facility] [place] [address] VANCOMYCIN TROUGH (05/16/2017 11:14 PM) Component Value Ref Range Vancomycin Trough 24.7 (H) 10.0 - 20.0 ug/mL Specimen Performing Laboratory Blood [address], [place] [address] XRAY PELVIS 1 OR 2 VIEWS (05/16/2017 5:55 PM) Specimen Performing Laboratory PS360 Narrative Patient Name: BEKA HARRIS Date of :1935 Procedure: XRAY PELVIS 1 OR 2 VIEWS Date of Service: 05/16/2017 EXAM: XRAY PELVIS 1 OR 2 VIEWS INDICATION:sp stage 1 left CHAVEZ revision COMPARISON(S): CT from 05/12/2017 FINDINGS: New surgical change when compared to prior. Femoral component of the arthroplasty is been removed. There is arthroplasty revision with different appearing femoral component. Cerclage wires are in place. 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 Finalized by: Kyle Murcia MD on 05/17/2017 9:54 AM Patient/Procedure Information: [facility] MRN/CHAYA: [id number] Order Number: [id number] Accession Number: [id number] Ordering Provider: YUSRA BANEGAS Authorizing Provider: YUSRA BANEGAS Procedure Note [facility], [facility] - 05/17/2017 9:56 AM CDT Patient Name: BEKA HARRIS Date of : 1935 Procedure: XRAY PELVIS 1 OR 2 VIEWS Date of Service: 05/16/2017 EXAM: XRAY PELVIS 1 OR 2 VIEWS INDICATION:sp stage 1 left CHAVEZ revision COMPARISON(S): CT from 05/12/2017 FINDINGS: New surgical change when compared to prior. Femoral component of the arthroplasty is been removed. There is arthroplasty revision with different appearing femoral component. Cerclage wires are in place. 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 Finalized by: Kyle Murcia MD on 05/17/2017 9:54 AM Patient/Procedure Information: [facility] MRN/CHAYA: [id number] Order Number: [id number] Accession Number: [id number] Ordering Provider: YUSRA BANEGAS Authorizing Provider: YUSRA BANEGAS COMPLETE BLOOD COUNT WITHOUT DIFFERENTIAL (05/16/2017 5:10 PM) Component Value Ref Range WBC 5.6 4.0 - 11.0 K/uL RBC 2.99 (L) 4.40 - 5.80 M/uL Hemoglobin 8.7 (L) 13.5 - 17.5 g/dL Hematocrit 28.1 (L) 40.0 - 50.0 % MCV 94.0 80.0 - 98.0 fL MCH 29.1 25.5 - 34.0 pg MCHC 31.0 (L) 31.5 - 36.5 g/dL RDW-CV 18.0 (H) 11.5 - 15.5 % RDW-SD 59.1 (H) 35.5 - 50.0 fl Platelet Count 168 140 - 400 K/uL MPV 8.8 8.5 - 12.0 fL Specimen Performing Laboratory Blood [facility] [address] [facility] [place] [place] [address] PREPARE AND HOLD RED BLOOD CELLS - BLOOD BANK (05/16/2017 3:25 PM) Component Value Ref Range BPAM Product Code F5346M76 BPAM Unit Number [id number] Unit ABO Type O Unit Rh Type POS BPAM Dispense Status RE BPAM Blood Expiration Date [id number] BPAM Coding System 5100 Product Code RBC, Leukoreduced CP2D>AS3 Unit ID [id number] Product Status Released from Crossmatched Specimen Performing Laboratory LAB CULTURE BACTERIAL, ANAEROBE (05/16/2017 3:08 PM)Only the most recent of2 resultswithin the time period is included. Component Value Ref Range Culture Result No anaerobic growth at 5 days Specimen Performing Laboratory Tissue - Soft Tissue [address] [place] [address] CULTURE BACTERIAL, OTHER (05/16/2017 3:08 PM)Only the most recent of2 resultswithin the time period is included. Component Value Ref Range Culture Result Culture Result Few Staphylococcus aureus, MRSA (!)Comment: strain one Culture Result Rare Staphylococcus aureus, MRSA (!)Comment: strain two Gram Stain Many (>25/LPF) WBC's Gram Stain No epithelial cells seen Gram Stain Many (>25/LPF) RBC's Gram Stain Few (1 to 5/OIF) Gram positive cocci in pairs Specimen Performing Laboratory Tissue - Soft Tissue [address] [place] [address] Organism Antibiotic Method Susceptibility Staphylococcus aureus, MRSA Clindamycin NGUYỄN <=0.25 ug/mL: Sensitive Staphylococcus aureus, MRSA Erythromycin NGUYỄN >=8 ug/mL: Resistant Staphylococcus aureus, MRSA Levofloxacin NGUYỄN 0.25 ug/mL: Sensitive Staphylococcus aureus, MRSA Oxacillin NGUYỄN >=4 ug/mL: Resistant Comment: Oxacillin predicts susceptibility to cefazolin, cephalexin, nafcillin and dicloxacillin. Staphylococcus aureus, MRSA Penicillin NGUYỄN >=0.5 ug/mL: Resistant Staphylococcus aureus, MRSA Rifampicin NGUYỄN <=0.5 ug/mL: Sensitive Comment: Rifampicin should not be used alone for antimicrobial therapy. Staphylococcus aureus, MRSA Tetracycline NGUYỄN <=1 ug/mL: Sensitive Staphylococcus aureus, MRSA Trimethoprim/Sulfamethoxazole NGUYỄN <=10 ug/mL: Sensitive Staphylococcus aureus, MRSA Vancomycin NGUYỄN <=0.5 ug/mL: Sensitive Comment: Oxacillin results can be applied to the other penicillinase-stable penicillins (cloxacillin, dicloxacillin, flucloxacillin, methicillin, and nafcillin), beta lactam/beta lactamase inhibitor combinations , antistaphylococcal cephems, and carbapenems approved for use by the FDA for staphylcoccal infections. Oxacillin resistant staphylococci are resistant to all currently available beta lactam antimicrobial agents, with the exception of the newer cephalosporins with anti-MRSA activity. Staphylococcus aureus, MRSA Clindamycin NGUYỄN <=0.25 ug/mL: Sensitive Staphylococcus aureus, MRSA Erythromycin NGUYỄN >=8 ug/mL: Resistant Staphylococcus aureus, MRSA Levofloxacin NGUYỄN 0.25 ug/mL: Sensitive Staphylococcus aureus, MRSA Oxacillin NGUYỄN >=4 ug/mL: Resistant Comment: Oxacillin predicts susceptibility to cefazolin, cephalexin, nafcillin and dicloxacillin. Staphylococcus aureus, MRSA Penicillin NGUYỄN >=0.5 ug/mL: Resistant Staphylococcus aureus, MRSA Rifampicin NGUYỄN <=0.5 ug/mL: Sensitive Comment: Rifampicin should not be used alone for antimicrobial therapy. Staphylococcus aureus, MRSA Tetracycline NGUYỄN <=1 ug/mL: Sensitive Staphylococcus aureus, MRSA Trimethoprim/Sulfamethoxazole NGUYỄN <=10 ug/mL: Sensitive Staphylococcus aureus, MRSA Vancomycin NGUYỄN <=0.5 ug/mL: Sensitive Comment: Oxacillin results can be applied to the other penicillinase-stable penicillins (cloxacillin, dicloxacillin, flucloxacillin, methicillin, and nafcillin), beta lactam/beta lactamase inhibitor combinations , antistaphylococcal cephems, and carbapenems approved for use by the FDA for staphylcoccal infections. Oxacillin resistant staphylococci are resistant to all currently available beta lactam antimicrobial agents, with the exception of the newer cephalosporins with anti-MRSA activity. PREPARE AND HOLD RED BLOOD CELLS - BLOOD BANK (05/16/2017 2:06 PM) Component Value Ref Range BPAM Product Code [id number] BPAM Unit Number [id number] Unit ABO Type O Unit Rh Type POS BPAM Dispense Status TR BPAM Blood Expiration Date BPAM Coding System 5100 Product Code RBC, Leukoreduced CP2D>AS3 Unit ID [id number] Product Status Transfused Specimen Performing Laboratory LAB PREPARE AND HOLD RED BLOOD CELLS - BLOOD BANK (05/16/2017 2:06 PM) Component Value Ref Range BPAM Product Code [id number] BPAM Unit Number [id number] Unit ABO Type O Unit Rh Type POS BPAM Dispense Status TR BPAM Blood Expiration Date [id number] BPAM Coding System 5100 Product Code RBC, Leukoreduced CP2D>AS3 Unit ID [id number] Product Status Transfused Specimen Performing Laboratory LAB COMPLETE BLOOD COUNT WITHOUT DIFFERENTIAL (05/16/2017 8:44 AM) Component Value Ref Range WBC 4.8 4.0 - 11.0 K/uL RBC 2.88 (L) 4.40 - 5.80 M/uL Hemoglobin 8.5 (L) 13.5 - 17.5 g/dL Hematocrit 27.4 (L) 40.0 - 50.0 % MCV 95.1 80.0 - 98.0 fL MCH 29.5 25.5 - 34.0 pg MCHC 31.0 (L) 31.5 - 36.5 g/dL RDW-CV 17.9 (H) 11.5 - 15.5 % RDW-SD 58.4 (H) 35.5 - 50.0 fl Platelet Count 153 140 - 400 K/uL MPV 8.9 8.5 - 12.0 fL Specimen Performing Laboratory Blood [facility] [address] [facility] [place] [address] RENAL FUNCTION PANEL (05/16/2017 8:44 AM) Component Value Ref Range Glucose 88 70 - 100 mg/dL BUN 25 (H) 6 - 22 mg/dL Creatinine 0.70 (L) 0.80 - 1.30 mg/dL BUN/Creatinine Ratio 35.7 (H) 10.0 - 25.0 Sodium 137 135 - 145 meq/L Potassium 3.8 3.5 - 5.3 meq/L Chloride 99 99 - 110 meq/L CO2 26 23 - 32 meq/L Anion Gap with K 16 6 - 20 meq/L Calcium 8.7 8.5 - 10.2 mg/dL Phosphorus 2.4 (L) 2.5 - 4.5 mg/dL Albumin 2.8 (L) 3.6 - 5.0 g/dL Corrected Calcium 9.7 8.5 - 10.5 mg/dL Age 82 Years eGFR Non- >90 >=60 mL/min/1.73m2 eGFR >90 >=60 mL/min/1.73m2 Specimen Performing Laboratory Blood [facility] [address] [place] [address] TYPE AND SCREEN (05/15/2017 3:10 PM) Component Value Ref Range ABO Type O Rh Type Positive Expiration Date 05/18/2017 23:59 Antibody Screen Negative Comment: Allogenic Red Cells Available 05/16/17 Specimen Performing Laboratory Blood [facility] BLOOD BANK [address] [place] [address] COLLECT AND HOLD LAVENDER (EDTA) TOP TUBE (05/15/2017 5:43 AM) Component Value Ref Range Collect and Hold Specimen Status Comment: RECEIVED Specimen Performing Laboratory Blood [facility] [address] [place] [address] CREATININE (05/15/2017 5:43 AM) Component Value Ref Range Creatinine 0.80 0.80 - 1.30 mg/dL Age 82 Years eGFR Non- >90 >=60 mL/min/1.73m2 eGFR >90 >=60 mL/min/1.73m2 Specimen Performing Laboratory [place] [address] [place] [address] EKG 12 LEAD (05/14/2017 12:11 PM) Component Value Ref Range EKG WAVEFORM Atrial fibrillation with premature ventricular or aberrantly conducted complexes: Incomplete left bundle branch block: Nonspecific ST and T wave abnormality ,noted before less prominent now: Abnormal ECG Ventricular Rate: 84 BPM Atrial Rate: 84 BPM QRS Duration: 114 ms Q-T Interval: 366 ms QTC Calculation(Bazett): 432 ms Calculated R Goehner: 6 degrees Calculated T Goehner: -152 degrees COLLECT AND HOLD LAVENDER (EDTA) TOP TUBE (05/14/2017 10:45 AM) Component Value Ref Range Collect and Hold Specimen Status Comment: RECEIVED Specimen Performing Laboratory Blood [facility] [address] [place] [address] VANCOMYCIN TROUGH (05/14/2017 10:45 AM) Component Value Ref Range Vancomycin Trough 19.3 10.0 - 20.0 ug/mL Specimen Performing Laboratory Blood [facility] [address] [place] [address] CREATININE (05/13/2017 5:59 AM) Component Value Ref Range Creatinine 0.80 0.80 - 1.30 mg/dL Age 82 Years eGFR Non- >90 >=60 mL/min/1.73m2 eGFR >90 >=60 mL/min/1.73m2 Specimen Performing Laboratory Blood [facility] [address] [place] [address] COMPREHENSIVE METABOLIC PANEL (05/13/2017 5:59 AM) Component Value Ref Range Glucose 85 70 - 100 mg/dL BUN 19 6 - 22 mg/dL Creatinine 0.80 0.80 - 1.30 mg/dL BUN/Creatinine Ratio 23.8 10.0 - 25.0 Sodium 136 135 - 145 meq/L Potassium 3.5 3.5 - 5.3 meq/L Chloride 99 99 - 110 meq/L CO2 25 23 - 32 meq/L Anion Gap with K 16 6 - 20 meq/L Calcium 8.7 8.5 - 10.2 mg/dL Protein Total 6.8 5.5 - 8.2 g/dL Albumin 3.0 (L) 3.6 - 5.0 g/dL Alkaline Phosphatase 144 (H) 30 - 125 U/L AST - SGOT 15 0 - 33 U/L ALT - SGPT 10 0 - 36 U/L Bilirubin Total 0.3 0.2 - 1.2 mg/dL Corrected Calcium 9.5 8.5 - 10.5 mg/dL Age 82 Years eGFR Non- >90 >=60 mL/min/1.73m2 eGFR >90 >=60 mL/min/1.73m2 Specimen Performing Laboratory Blood [facility] [address] [place] [address] COMPLETE BLOOD COUNT WITHOUT DIFFERENTIAL (05/13/2017 5:59 AM) Component Value Ref Range WBC 4.9 4.0 - 11.0 K/uL RBC 2.97 (L) 4.40 - 5.80 M/uL Hemoglobin 8.7 (L) 13.5 - 17.5 g/dL Hematocrit 28.1 (L) 40.0 - 50.0 % MCV 94.6 80.0 - 98.0 fL MCH 29.3 25.5 - 34.0 pg MCHC 31.0 (L) 31.5 - 36.5 g/dL RDW-CV 18.2 (H) 11.5 - 15.5 % RDW-SD 59.6 (H) 35.5 - 50.0 fl Platelet Count 163 140 - 400 K/uL MPV 9.5 8.5 - 12.0 fL Specimen Performing Laboratory Blood [facility] [address] [place] [address] CULTURE BACTERIAL, OTHER WITH GRAM STAIN (05/12/2017 3:02 AM) Component Value Ref Range Culture Result Culture Result Moderate amount Staphylococcus aureus, MRSA (!) Gram Stain No WBC's seen Gram Stain No epithelial cells seen Gram Stain No organisms seen Specimen Performing Laboratory Abscess - Boil [address] [place] [address] Organism Antibiotic Method Susceptibility Staphylococcus aureus, MRSA Clindamycin NGUYỄN <=0.25 ug/mL: Sensitive Staphylococcus aureus, MRSA Erythromycin NGUYỄN >=8 ug/mL: Resistant Staphylococcus aureus, MRSA Levofloxacin NGUYỄN 0.25 ug/mL: Sensitive Staphylococcus aureus, MRSA Oxacillin NGUYỄN >=4 ug/mL: Resistant Comment: Oxacillin predicts susceptibility to cefazolin, cephalexin, nafcillin and dicloxacillin. Staphylococcus aureus, MRSA Penicillin NGUYỄN >=0.5 ug/mL: Resistant Staphylococcus aureus, MRSA Rifampicin NGUYỄN <=0.5 ug/mL: Sensitive Comment: Rifampicin should not be used alone for antimicrobial therapy. Staphylococcus aureus, MRSA Tetracycline NGUYỄN <=1 ug/mL: Sensitive Staphylococcus aureus, MRSA Trimethoprim/Sulfamethoxazole NGUYỄN <=10 ug/mL: Sensitive Staphylococcus aureus, MRSA Vancomycin NGUYỄN <=0.5 ug/mL: Sensitive Comment: Oxacillin results can be applied to the other penicillinase-stable penicillins (cloxacillin, dicloxacillin, flucloxacillin, methicillin, and nafcillin), beta lactam/beta lactamase inhibitor combinations , antistaphylococcal cephems, and carbapenems approved for use by the FDA for staphylcoccal infections. Oxacillin resistant staphylococci are resistant to all currently available beta lactam antimicrobial agents, with the exception of the newer cephalosporins with anti-MRSA activity. CT PELVIS WITH CONTRAST (05/12/2017 12:45 AM) Specimen Performing Laboratory PS360 Narrative Patient Name: BEKA HARRIS Date of :1935 Procedure: CT PELVIS WITH CONTRAST Date of Service: 05/12/2017 -------- ADDENDUM #1 -------- I called this report to TATA WATERS at 05/12/2017 2:00 AM. Finalized by: Chapito Cox MD on 05/12/2017 2:00 AM -------- ORIGINAL REPORT -------- EXAM: CT PELVIS WITH CONTRAST INDICATION: Scrotal mass or lump,left groin abscess, possible hip involvement COMPARISON(S): None Available TECHNIQUE: Multidetector imaging with IV contrast from the mid renal level to the proximal femoral shafts below the level of the tip of the femoral shank of the left prosthesis. Axial routine and reformatted sagittal and coronal images. FINDINGS: There is abnormal swelling of the left iliopsoas. The muscle is swollen down to the level of the hip. There is the suspicion of a 1.5 x 2 cm hypodense area in the muscle just above the acetabulum centered on axial image 38. There are 2 tiny adjacent hypodense areas. Distally, the muscle is swollen down to its and insertion with possible some small additional hypodensities in the more distal muscle ( axial image extending 4. There is left hip prosthesis which obscures adjacent anatomy. The deep musculature and bone are difficult to evaluate. Left obturator muscle also appears swollen compared to that on the right with a somewhat poorly defined hypodense area in its anterior aspect on axial image 76. There is lucency at the bone cement interface along the femoral shank. There is lucency in the lateral acetabulum adjacent to screws for the acetabular component. Degenerative changes of the lower lumbar spine. There is degenerative narrowing at L5-S1 discs with intradiscal gas. SI joints are narrowed and partially fused. The right hip joint space is narrowed. The gallbladder is incompletely visualized. There may be small noncalcified stones versus mural thickening along the posterior gallbladder. IMPRESSION: Swelling of obturator muscle with a suspicion of small abnormal collections in the muscle above the acetabulum and just above its insertion at the hip. Also suspicion of abnormal collection in the anterior left obturator externus muscle. These are difficult these areas are not well-defined but small abscesses cannot be excluded. Metal artifact from a left hip prosthesis obscures adjacent bone and soft tissue. There may be small noncalcified stones versus mural thickening along the posterior gallbladder. Gallbladder is incompletely visualized. Appropriate radiation dose reduction devices and/or manual techniques for appropriate moderation of exposure was utilized. Finalized by: Chapito Cox MD on 05/12/2017 1:30 AM Patient/Procedure Information: [facility] MRN/CHAYA: [id number] Order Number: [id number] Accession Number: [id number] Ordering Provider: TATA WATERS Authorizing Provider: TATA WATERS Procedure Note Interface, [facility] - 05/12/2017 2:02 AM CDT Patient Name: BEKA HARRIS Date of : 1935 Procedure: CT PELVIS WITH CONTRAST Date of Service: 05/12/2017 -------- ADDENDUM #1 -------- I called this report to ATTA WATERS at 05/12/2017 2:00 AM. Finalized by: Chapito Cox MD on 05/12/2017 2:00 AM -------- ORIGINAL REPORT -------- EXAM: CT PELVIS WITH CONTRAST INDICATION: Scrotal mass or lump,left groin abscess, possible hip involvement COMPARISON(S): None Available TECHNIQUE: Multidetector imaging with IV contrast from the mid renal level to the proximal femoral shafts below the level of the tip of the femoral shank of the left prosthesis. Axial routine and reformatted sagittal and coronal images. FINDINGS: There is abnormal swelling of the left iliopsoas. The muscle is swollen down to the level of the hip. There is the suspicion of a 1.5 x 2 cm hypodense area in the muscle just above the acetabulum centered on axial image 38. There are 2 tiny adjacent hypodense areas. Distally, the muscle is swollen down to its and insertion with possible some small additional hypodensities in the more distal muscle (axial image extending 4. There is left hip prosthesis which obscures adjacent anatomy. The deep musculature and bone are difficult to evaluate. Left obturator muscle also appears swollen compared to that on the right with a somewhat poorly defined hypodense area in its anterior aspect on axial image 76. There is lucency at the bone cement interface along the femoral shank. There is lucency in the lateral acetabulum adjacent to screws for the acetabular component. Degenerative changes of the lower lumbar spine. There is degenerative narrowing at L5-S1 discs with intradiscal gas. SI joints are narrowed and partially fused. The right hip joint space is narrowed. The gallbladder is incompletely visualized. There may be small noncalcified stones versus mural thickening along the posterior gallbladder. IMPRESSION: Swelling of obturator muscle with a suspicion of small abnormal collections in the muscle above the acetabulum and just above its insertion at the hip. Also suspicion of abnormal collection in the anterior left obturator externus muscle. These are difficult these areas are not well-defined but small abscesses cannot be excluded. Metal artifact from a left hip prosthesis obscures adjacent bone and soft tissue. There may be small noncalcified stones versus mural thickening along the posterior gallbladder. Gallbladder is incompletely visualized. Appropriate radiation dose reduction devices and/or manual techniques for appropriate moderation of exposure was utilized. Finalized by: Chapito Cox MD on 05/12/2017 1:30 AM Patient/Procedure Information: [facility] MRN/CHAYA: [id number] Order Number: [id number] Accession Number: [id number] Ordering Provider: TATA WATERS Authorizing Provider: TATA WATERS CULTURE, BLOOD (05/11/2017 10:42 PM)Only the most recent of2 resultswithin the time period is included. Component Value Ref Range Culture Result No growth at 5 days Specimen Performing Laboratory Blood [address] [address] COLLECT AND HOLD BLUE ([place]) TOP TUBE (05/11/2017 10:19 PM) Component Value Ref Range Collect and Hold Specimen Status Comment: RECEIVED Specimen Performing Laboratory Blood [address], [place] [address] LAB ONLY-COMPLETE BLOOD COUNT WITH DIFFERENTIAL (05/11/2017 10:19 PM) Component Value Ref Range WBC 6.8 4.0 - 11.0 K/uL RBC 3.21 (L) 4.40 - 5.80 M/uL Hemoglobin 9.5 (L) 13.5 - 17.5 g/dL Hematocrit 29.7 (L) 40.0 - 50.0 % MCV 92.5 80.0 - 98.0 fL MCH 29.6 25.5 - 34.0 pg MCHC 32.0 31.5 - 36.5 g/dL RDW-CV 18.3 (H) 11.5 - 15.5 % RDW-SD 62.5 (H) 35.5 - 50.0 fl Platelet Count 149 140 - 400 K/uL MPV 9.5 8.5 - 12.0 fL Seg Neut Absolute 4.9 1.8 - 8.0 K/uL Lymphocytes Absolute 0.9 0.8 - 4.1 K/uL Monocytes Absolute 0.6 0.0 - 1.0 K/uL Eosinophils Absolute 0.3 0.0 - 0.7 K/uL Basophil Absolute 0.1 0.0 - 0.2 K/uL Immature Granulocyte Absolute 0.07 (H) 0.00 - 0.06 K/uL Neutrophils Abs. (Segs and Bands) 4900 /uL Neutrophils Percent 72.4 % Lymphocytes Percent 13.3 % Monocytes Percent 9.2 % Immature Granulocyte Percent 1.0 % Eosinophils Percent 4.4 % Basophil Percent 0.7 % Specimen Performing Laboratory Blood - Venous [place] [address] [place] [id number] ESR (05/11/2017 10:19 PM) Component Value Ref Range ESR 116 (H) 0 - 15 mm/Hr Specimen Performing Laboratory Blood [place] [address] [facility] [address] [place] [id number] C-REACTIVE PROTEIN (INFLAMMATION) (05/11/2017 10:19 PM) Component Value Ref Range CRP 69.0 (H) 0.0 - 8.0 mg/L Specimen Performing Laboratory Blood - Venous [facility] [address] [facility] [address] [place] [id number] COMPREHENSIVE METABOLIC PANEL (05/11/2017 10:19 PM) Component Value Ref Range Glucose 89 70 - 100 mg/dL BUN 21 6 - 22 mg/dL Creatinine 0.82 0.80 - 1.30 mg/dL BUN/Creatinine Ratio 25.6 (H) 10.0 - 25.0 Sodium 134 (L) 135 - 145 meq/L Potassium 3.9 3.5 - 5.3 meq/L Chloride 103 99 - 110 meq/L CO2 20 20 - 29 meq/L Anion Gap with K 15 6 - 20 meq/L Calcium 9.7 8.5 - 10.5 mg/dL Protein Total 7.7 6.0 - 8.2 g/dL Albumin 3.4 (L) 3.5 - 5.0 g/dL Alkaline Phosphatase 156 (H) 30 - 150 U/L AST - SGOT 18 0 - 35 U/L ALT - SGPT 14 0 - 55 U/L Bilirubin Total 0.7 0.2 - 1.2 mg/dL Corrected Calcium 10.2 8.5 - 10.5 mg/dL Age 82 Years eGFR Non- 90 >=60 mL/min/1.73m2 eGFR >90 >=60 mL/min/1.73m2 Specimen Performing Laboratory Blood - Venous [address], [place] [address] COMPLETE BLOOD COUNT WITH DIFFERENTIAL (05/11/2017 10:19 PM) Specimen Performing Laboratory Blood - Venous Narrative The following orders were created for panel order COMPLETE BLOOD COUNT WITH DIFFERENTIAL. Procedure Abnormality Status --------- ------ LAB ONLY-COMPLETE BLOOD ...[[id number]]AbnormalFinal result Please view results for these tests on the individual orders. in this encounter Visit Diagnoses Diagnosis Abscess of groin, left - Primary Cellulitis and abscess of trunk Failed total hip arthroplasty, initial encounter Infection of prosthetic joint, subsequent encounter Hypertension, unspecified type Acute gout, unspecified cause, unspecified site Chronic gout without tophus, unspecified cause, unspecified site Preventative health care Routine general medical examination at a health care facility Benign prostatic hyperplasia without lower urinary tract symptoms Coronary artery disease involving [place] coronary artery of [place] heart without angina pectoris Atrial fibrillation, unspecified type Failed total joint replacement, subsequent encounter in this encounter Administered Medications Medication Order MAR Action Action Date Dose Rate Site acetaminophen (TYLENOL) tablet 650 mg Given 05/15/2017 08:41 CDT 650 mg 650 mg, Oral, Every four hours prn, Starting 05/12/17 at 0846, Until Discontinued, mild pain, fever, for pain Scale 3 or less, Pain stratification is defined as follows for either analog scale (0-10) or critical care pain observation tool (CPOT, 0-8). a. No pain (0) b. Mild pain level (1-3) c. Moderate pain level (4-6) d. Severe pain level (greater than or equal to 7) Given 05/15/2017 13:58 CDT 650 mg Given 05/15/2017 22:34 CDT 650 mg acetaminophen (TYLENOL) tablet 650 mg Given 05/20/2017 23:18 CDT 650 mg 650 mg, Oral, Every six hours, First dose on Sun05/16/17 at 1850, Until Discontinued, Post - Op, Alternate with tramadol (ULTRAM); Total dose of acetaminophen from all acetaminophen containing products should not exceed 4 grams (4000 mg) per day. Given 05/21/2017 05:58 CDT 650 mg Given 05/21/2017 12:43 CDT 650 mg allopurinol (ZYLOPRIM) tablet 300 mg Given 05/19/2017 09:59 CDT 300 mg 300 mg, Oral, DAILY, First dose on 05/12/17 at 0900, Until Discontinued Given 05/20/2017 09:42 CDT 300 mg Given 05/21/2017 09:49 CDT 300 mg aspirin enteric coated tablet 81 mg Given 05/19/2017 10:00 CDT 81 mg 81 mg, Oral, DAILY, First dose on 05/12/17 at 0900, Until Discontinued, Tablet should be swallowed whole and not be divided, crushed or chewed. Given 05/20/2017 09:43 CDT 81 mg Given 05/21/2017 08:51 CDT 81 mg bisacodyl (DULCOLAX) suppository 10 mg Given 05/20/2017 16:14 CDT 10 mg 10 mg, Rectal, One time a day prn, Starting 05/12/17 at 0846, Until Discontinued, constipation, Use second for constipation. If patient cannot take oral medications, use first for constipation. digoxin (LANOXIN) tablet 0.125 mg Given 05/14/2017 14:04 CDT 0.125 mg 0.125 mg, Oral, One time a day Sun, First dose on Sun05/14/17 at 1400, Until Discontinued Given 05/18/2017 15:09 CDT 0.125 mg ferrous sulfate (65 mg FE per 325 mg tablet) Given 05/20/2017 09:42 CDT 325 mg tablet 325 mg 325 mg, Oral, Two times a day, 60 doses, First dose on 05/20/17 at 0900, Last dose on 06/18/17 at 2100 Given 05/20/2017 21:45 CDT 325 mg Given 05/21/2017 09:49 CDT 325 mg finasteride (PROSCAR) tablet 5 mg Given 05/19/2017 10:01 CDT 5 mg 5 mg, Oral, DAILY, First dose on 05/12/17 at 0900, Until Discontinued, This medication is a low risk cytotoxic drug. Wear 2 pairs of chemo gloves for administration. If unable to administer dose intact - contact pharmacy for other administration options. Dispose of empty packages in the yellow cytotoxic waste. Dispose of unused or partial packages in the black waste containers. Given 05/20/2017 09:42 CDT 5 mg Given 05/21/2017 09:49 CDT 5 mg heparin (porcine) injection solution 5,000 Given 05/20/2017 09:41 CDT 5,000 Units Units 5,000 Units, Subcutaneous, Every twelve hours, First dose on Lily 05/17/17 at 0900, Until Discontinued, 1 mL Given 05/20/2017 21:46 CDT 5,000 Units Given 05/21/2017 09:49 CDT 5,000 Units heparin 100 units/ mL injection for heplock Given 05/20/2017 05:29 CDT 300 Units FLUSH 300 Units (3 mL), IV, Every twelve hours, First dose on Sun05/18/17 at 1700, Until Discontinued, 3 mL, Routine flush twice a day or after meds. 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 Flush with 10 mL 0.9% Sodium Chloride followed by 300 units heparin Given 05/19/2017 10:51 CDT 300 Units Given 05/20/2017 14:24 CDT 300 Units hydroCHLOROthiazide tablet 25 mg Given 05/18/2017 08:29 CDT 25 mg 25 mg, Oral, DAILY, First dose on 05/12/17 at 0900, Until Discontinued, Hold for SBP less than 100 Given 05/19/2017 10:01 CDT 25 mg Given 05/21/2017 08:51 CDT 25 mg lisinopril (PRINIVIL, ZESTRIL) tablet 40 mg Given 05/18/2017 08:27 CDT 40 mg 40 mg, Oral, DAILY, First dose on 05/12/17 at 0900, Until Discontinued, Hold for SBP less than 100 Given 05/19/2017 10:00 CDT 40 mg Given 05/21/2017 08:51 CDT 40 mg magnesium hydroxide (MILK OF MAGNESIA) oral Given 05/15/2017 12:03 CDT 30 mL suspension 30 mL 30 mL, Oral, One time a day prn, Starting 05/15/17 at 0859, Until Discontinued, constipation, 30 mL metoprolol succinate (TOPROL XL) SR tablet (24 Given 05/19/2017 10:00 CDT 100 mg hr) 100 mg 100 mg, Oral, DAILY, First dose on 05/12/17 at 0900, Until Discontinued, Tablet may be broken in half, but should not be crushed or chewed. Hold for SBP less than 90 Hold for HR less than 60 Given 05/20/2017 09:40 CDT 100 mg Given 05/21/2017 08:51 CDT 100 mg oxyCODONE (OXY-IR) tablet 5-10 mg Given 05/19/2017 19:10 CDT 5 mg 5-10 mg, Oral, Every four hours prn, Starting Sun05/16/17 at 1845, Until Discontinued, moderate pain, severe pain, Post - Op, For patients with moderate pain, pain rating of 4-6, give Oxycodone 5mg PO every 4 hours PRN. For patients with severe pain, pain rating of 7-10, give Oxycodone 10mg PO every 4 hours PRN. Given 05/20/2017 08:04 CDT 5 mg Given 05/20/2017 13:11 CDT 5 mg polyethylene glycol (MIRALAX) packet 1 packet Given 05/19/2017 10:00 CDT 1 packet 1 packet, Oral, Daily, First dose on Lily 05/17/17 at 0900, Until Discontinued, Post - Op, Hold if 2 loose stools occur in the last 24 hours. Given 05/20/2017 09:40 CDT 1 packet Given 05/21/2017 09:49 CDT 1 packet rifAMPin (RIFADIN) capsule 300 mg Given 05/20/2017 09:39 CDT 300 mg 300 mg, Oral, Two times a day, First dose on Sun05/18/17 at 2100, Until Discontinued, Turns all body fluids red/orange. Given 05/20/2017 21:46 CDT 300 mg Given 05/21/2017 09:49 CDT 300 mg senna-docusate sodium (SENOKOT-S;PERICOLACE) Given 05/15/2017 08:33 CDT 1 tablet tablet 1 tablet 1 tablet, Oral, Two times a day prn, Starting 05/12/17 at 0846, Until Discontinued, constipation, Use first for constipation unless patient cannot take oral medications senna-docusate sodium (SENOKOT-S;PERICOLACE) Given 05/20/2017 09:40 CDT 1 tablet tablet 1 tablet 1 tablet, Oral, Two times a day, First dose on Sun05/16/17 at 2100, Until Discontinued, Post - Op, Hold if 2 loose stools occur in the last 24 hours. Given 05/20/2017 21:46 CDT 1 tablet Given 05/21/2017 09:49 CDT 1 tablet simvastatin (ZOCOR) tablet 40 mg Given 05/18/2017 20:03 CDT 40 mg 40 mg, Oral, DAILY, First dose on 05/12/17 at 0900, Until Discontinued Given 05/19/2017 20:42 CDT 40 mg Given 05/20/2017 21:45 CDT 40 mg sodium chloride 0.9% prefilled 10 mL syringe Given 05/17/2017 08:36 CDT 3 mL (Materials Management Item) 1-3 mL 1-3 mL, IV, Daily, First dose on Lily 05/17/17 at 0900, Until Discontinued, 10 mL, Post - Op, Flush with 1-3 mL normal saline at least every 24 hours. Given 05/19/2017 11:29 CDT 3 mL Given 05/20/2017 09:41 CDT 3 mL sodium chloride 0.9% prefilled 10 mL syringe Given 05/16/2017 19:21 CDT 3 mL (Materials Management Item) 1-3 mL 1-3 mL, IV, PRN per parameter, Starting 05/16/17 at 1845, Until Discontinued, other (Specify), Peripheral Line Maintanence, 10 mL, Post - Op, Flush with 1-3 mL normal saline after each medication. sodium chloride 0.9% prefilled 10 mL syringe Given 05/16/2017 12:17 CDT 10 mL (Materials Management Item) 10 mL 10 mL, IV, As often as necessary prn, Starting 05/12/17 at 0245, Until Discontinued, other (Specify), to flush IV line before and after meds, 10 mL sodium chloride 0.9% prefilled 10 mL syringe Given 05/20/2017 05:29 CDT 10 mL (Materials Management Item) 10 mL 10 mL, IV, Every twelve hours, First dose on Sun05/18/17 at 1700, Until Discontinued, 10 mL, Routine flush twice a day or after meds. 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 Flush with 10 mL 0.9% Sodium Chloride followed by 300 units heparin Given 05/20/2017 16:13 CDT 10 mL Given 05/21/2017 09:50 CDT 10 mL terazosin (HYTRIN) capsule 5 mg Given 05/17/2017 22:32 CDT 5 mg 5 mg, Oral, Bedtime, First dose on 05/12/17 at 2100, Until Discontinued, Hold for SBP less than 100 Given 05/19/2017 20:42 CDT 5 mg Given 05/20/2017 21:45 CDT 5 mg vancomycin 1,250 mg in sodium chloride 0.9% Given 05/19/2017 11:29 CDT 1,250 mg 250 mL 1,250 mg, IV, Every twenty four hours, First dose on 05/19/17 at 1000, Until Discontinued, 262.5 mL Given 05/20/2017 10:43 CDT 1,250 mg Given 05/21/2017 09:58 CDT 1,250 mg Medication Order MAR Action Action Date Dose Rate Site ceFAZolin (ANCEF) syringe 2000 Given 05/12/2017 13:17 CDT 2,000 mg 300 mL/hr mg/20 mL sterile water 2,000 mg, IV, at 300 mL/hr, Give in OR, 1 dose, 05/12/17 at 1400, 20 mL, Pre - Op, Give in PROCEDURAL area. Start within 1 hour of cut time and complete prior to cut time. digoxin (LANOXIN) tablet 0.125 mg Given 05/17/2017 01:31 CDT 0.125 mg 0.125 mg, Oral, Daily (Digoxin), 1 dose, First dose on Lily 05/17/17 at 0125 digoxin (LANOXIN) tablet 0.25 mg Given 05/17/2017 12:39 CDT 0.25 mg 0.25 mg, Oral, Now, 1 dose, Lily 05/17/17 at 1215 fentaNYL 100 mcg/2 mL preservative free Given 05/16/2017 17:49 CDT 50 mcg injection solution 50 mcg 50 mcg, IV, Every five minutes prn, 6 doses, Starting 05/16/17 at 1700, Until 05/16/17 at 1840, moderate pain, severe pain, 2 mL, PACU, Max 300 mcg total accumulated dose. Use only anesthesia s orders for moderate/severe pain while in PACU or recovery care furosemide (LASIX) injection solution 20 mg Given 05/19/2017 13:33 CDT 20 mg 20 mg, IV, One time, 1 dose, 05/19/17 at 1115, 2 mL, Administer SLOW IV push heparin (porcine) injection solution 5,000 Given 05/14/2017 22:19 CDT 5,000 Units Units 5,000 Units, Subcutaneous, Every twelve hours, First dose on 05/12/17 at 0900, Until Discontinued, 1 mL Given 05/15/2017 08:35 CDT 5,000 Units Abdomen Left Lower TD Given 05/15/2017 22:35 CDT 5,000 Units HYDROmorphone (DILAUDID) injection solution Given 05/16/2017 17:20 CDT 0.5 mg (conc: 0.5 mg/0.5mL) 0.5 mg 0.5 mg, IV, Every ten minutes prn, 4 doses, Starting 05/16/17 at 1700, Until 05/16/17 at 1840, severe pain, other (Specify), Use for severe pain uncontrolled by Fentanyl.May continue to use hydromorphone once started as long as pain is rated as severe, 0.5 mL, PACU, Max 2 mg total accumulated dose. Use only anesthesia s orders for severe pain while in PACU or recovery care iohexol (OMNIPAQUE) 350 mg/mL solution 100 mL Given 05/12/2017 00:46 CDT 99 mL 100 mL, IV, Now imaging, 1 dose, Starting 05/12/17 at 0045, Until 05/12/17 at 0046, 100 mL lidocaine 1%-EPINEPHrine 1:100,000 Given 05/12/2017 01:22 CDT 3 mL (XYLOCAINE-EPINEPHRINE) injection 1 dose, Starting 05/12/17 at 0054, Until 05/12/17 at 1254, AppelBrianna: cabinet override magnesium sulfate 2 gm/50 mL IV solution 2 g Given 05/20/2017 16:13 CDT 2 g 2 g, IV, Now, 1 dose, [place] 05/20/17 at 1535, 50 mL magnesium sulfate IV replacement (premix) 4 Given 05/17/2017 12:40 CDT 4 g 25 mL/hr g 4 g, IV, at 25 mL/hr, One time, 1 dose, Lily 05/17/17 at 1220, 100 mL sodium chloride 0.9% (bolus) IV solution Given 05/17/2017 05:12 CDT 500 mL 500 mL/hr 500 mL 500 mL, IV, at 500 mL/hr, Bolus, 1 dose, Lily 05/17/17 at 0550, 500 mL sodium chloride 0.9% IV solution New Bag 05/12/2017 23:07 CDT 75 mL/hr IV, at 75 mL/hr, Continuous, Starting 05/12/17 at 0410, Until [place] 05/13/17 at 1136, 1,000 mL sodium chloride 0.9% IV solution New Bag 05/16/2017 19:22 CDT 100 mL/hr IV, at 100 mL/hr, Continuous, Starting 05/16/17 at 1850, Until Sun05/18/17 at 1003, 1,000 mL, Post - Op New Bag 05/17/2017 05:53 CDT 100 mL/hr New Bag 05/17/2017 18:17 CDT 100 mL/hr sodium chloride 0.9% IV solution flush bag Given 05/18/2017 08:02 CDT 500 mL IV, One time, 1 dose, Sun05/18/17 at 0650, 500 mL, TKO prior to transfusion, flush with approximately 50 mL between and after blood product administration vancomycin 1,250 mg in sodium chloride 0.9% 250 Given 05/13/2017 11:50 CDT 1, 250 mg mL 1,250 mg, IV, Every twelve hours, First dose on 05/12/17 at 2300, Until Discontinued, 262.5 mL, Vanco Dose 1250 mg- Total Volume: 288 mL @ 192 mL/hr x 1.5 hours Given 05/14/2017 00:06 CDT 1,250 mg Given 05/14/2017 11:30 CDT 1,250 mg vancomycin 1,250 mg in sodium chloride 0.9% Given 05/18/2017 06:17 CDT 1,250 mg 250 mL 1,250 mg, IV, One time, 1 dose, Sun05/18/17 at 0600, 262.5 mL, Vanco Dose 1250 mg- Total Volume: 288 mL @ 192 mL/hr x 1.5 hours vancomycin 1,500 mg in sodium OP/ED Infusion Started 05/12/2017 01:56 CDT 1, 500 mg chloride 0.9% 250 mL 1,500 mg, IV, Now, 1 dose, 05/12/17 at 0125, 265 mL, Vanco Dose 1500 mg- Total Volume: 290 mL @ 145 mL/hr x 2 hours vancomycin in dextrose 200 mL IV piggyback Given 05/15/2017 23:37 CDT 1,000 mg (premix) 1,000 mg 1,000 mg, IV, Every twelve hours, First dose on Sun05/15/17 at 0000, Until Discontinued, 200 mL Given 05/16/2017 12:14 CDT 1,000 mg Given 05/17/2017 00:24 CDT 1,000 mg in this encounter
[2017-05-21] MEDS ORDERED: Sodium Chloride 0.65% Nasal Spray 45 ML Bottle NASBOTH PRN (16:40)
[2017-05-21] MEDS ORDERED: Bisacodyl 10 MG Supp RECTAL PRN (16:40)
[2017-05-21] MEDS ORDERED: Bisacodyl 5 MG Tab PO PRN (16:40)
[2017-05-21] MEDS ORDERED: Magnesium Hydroxide 400 MG/5 ML Susp 30 ML Cup PO PRN (16:40)
[2017-05-21] MEDS ORDERED: DAPTOmycin 500 MG Vial IV SCH (16:45)
[2017-05-21] MEDS: Digoxin 125 MCG Tab PO SCH (17:24)
--- NOTE | 2017-05-21 17:40 | PCM.HP ---
H&P History of Present Illness - General Date of Service: 05/21/17 Admit Problem/Dx: Admission Diagnosis/Problem Admission Diagnosis/Problem Abscess Source of Information: Patient, Old Records History Limitations: Reports: No Limitations - History of Present Illness Initial Comments - Free Text/Narative: This is an 82-year-old male patient that had a left hip arthroplasty and 1993. In December they found out that it was infected. He was on IV antibiotics for quite some time. He does have it operated on and replaced. There was no time- limited the prosthesis out. He was transferred here for IV antibiotics PT/OT. He stated he lost a lot of blood during surgery and had to transfusions afterwards. In the notes assess to watch his hemoglobin. He says is having some pain is controlled. He occasionally has some shortness of breath but not all the time and cough. His states he has been little depressed because the situation has been going on so long. He is not on any medication at this point. No suicidal ideations, concentration problems, memory problems or sleep disturbance. He should had a left groin abscess that was MRSA. This is treated with vancomycin. Patient did have osteomyelitis it looks like in the joint and so he is on IV antibiotics per PICC line. Left Hip Pain Score (Numeric/FACES): 3 - Related Data Allergies/Adverse Reactions: Allergies Allergy/AdvReac Type Severity Reaction Status Date / Time No Known Allergies Allergy Verified 05/21/17 15:04 Home Medications: Home Meds Allopurinol [Zyloprim] 300 mg PO DAILY 01/12/17 [History] Aspirin [Halfprin] 81 mg PO DAILY 01/12/17 [History] Finasteride 5 mg PO DAILY 01/12/17 [History] Terazosin [Hytrin] 5 mg PO BEDTIME 01/12/17 [History] Hydrochlorothiazide 25 mg PO DAILY #30 tablet 02/05/17 [Rx] Metoprolol Succinate [Toprol Xl] 100 mg PO DAILY #30 tab.sr.24h 02/05/17 [Rx] Acetaminophen [Tylenol] 650 mg PO Q4H PRN 05/21/17 [History] Bisacodyl [Dulcolax] 5 mg PO BID PRN 05/21/17 [History] Bisacodyl [Dulcolax] 10 mg RC DAILY PRN 05/21/17 [History] Cholecalciferol (Vitamin D3) [Vitamin D3] 1,000 units PO DAILY 05/21/17 [History ] DAPTOmycin [Cubicin] 552 mg IV Q24H 05/21/17 [History] Digoxin [Lanoxin] 125 mcg PO MOWEFR@1400 05/21/17 [History] Ferrous Sulfate 325 mg PO BID 05/21/17 [History] Heparin 5000 Units/Ml 5,000 units SUBCUT Q12H 05/21/17 [History] Lisinopril 40 mg PO DAILY 05/21/17 [History] Magnesium Hydroxide [Milk of Magnesia] 30 ml PO DAILY PRN 05/21/17 [History] Polyethylene Glycol 3350 [MiraLAX] 17 gm PO DAILY 05/21/17 [History] Rifampin 300 mg PO BID 05/21/17 [History] Sodium Chloride [Saline Nasal Bliss] 2 spray NASBOTH BID PRN 05/21/17 [History] oxyCODONE 5 mg PO Q4H PRN 05/21/17 [History] Past Medical History HEENT History: Reports: Hard of Hearing, Other (See Below) Other HEENT History: has hearing aides but not here with pt Cardiovascular History: Reports: Afib, Heart Failure, Heart Murmur Genitourinary History: Reports: BPH Musculoskeletal History: Reports: Arthritis Endocrine/Metabolic History: Reports: Obesity/BMI 30+ Hematologic History: Reports: Blood Transfusion(s) - Infectious Disease History Infectious Disease History: Reports: MRSA - Past Surgical History HEENT Surgical History: Reports: Cataract Surgery Cardiovascular Surgical History: Reports: Other (See Below) Other Cardiovascular Surgeries/Procedures: Stent Musculoskeletal Surgical History: Reports: Hip Replacement, Shoulder Replacement , Other (See Below) Other Musculoskeletal Surgeries/Procedures:: left hip arthroplasty 05/16/17 was a revision Social & Family History - Family History Family Medical History: Noncontributory - Tobacco Use Smoking Status *Q: Former Smoker Used Tobacco, but Quit: Yes Month/Year Tobacco Last Used: 02/1959 Second Hand Smoke Exposure: No - Caffeine Use Caffeine Use: Reports: Coffee - Recreational Drug Use Recreational Drug Use: No H&P Review of Systems - Review of Systems: Review Of Systems: See Below General: Reports: No Symptoms HEENT: Reports: No Symptoms Pulmonary: Reports: Shortness of Breath, Cough Cardiovascular: Reports: No Symptoms Gastrointestinal: Reports: No Symptoms Genitourinary: Reports: No Symptoms Musculoskeletal: Reports: Other (See history of present illness) Skin: Reports: No Symptoms Psychiatric: Reports: Depression Neurological: Reports: No Symptoms Hematologic/Lymphatic: Reports: No Symptoms Immunologic: Reports: No Symptoms Exam - Exam Exam: See Below - Vital Signs Vital Signs: Last Vital Signs Temp 97.5 F 05/21/17 14:07 Pulse 94 05/21/17 14:07 Resp 18 05/21/17 14:07 BP 117/61 05/21/17 14:07 Pulse Ox 93 L 05/21/17 14:07 Weight: 203 lb 3.2 oz - Exam General: Alert, Oriented, Cooperative HEENT: PERRLA, Hearing Intact, Mucosa Moist & [place], Posterior Pharynx Clear, TMs Clear Neck: Supple, Trachea Midline. No: Carotid Bruit, JVD Lungs: Clear to Auscultation, Normal Respiratory Effort. No: Crackles, Rales, Rhonchi, Rub Cardiovascular: Regular Rate, Irregular Rhythm. No: Systolic Murmur, Diastolic Murmur GI/Abdominal Exam: Normal Bowel Sounds, Soft, Non-Tender, No Organomegaly, No Distention, No Abnormal Bruit, No Mass Extremities: Normal Inspection, No Pedal Edema Skin: Other (Wound covered. Supposed be covered for 14 days. He had an abscess in the medial thigh. I looked I don't see any signs of abscess at this time.) Neuro Extensive - Mental Status: Alert, Oriented x3, Normal Mood/Affect, Normal Cognition Psychiatric: Alert, Normal Affect, Normal Mood - Problem List (1) History of arthroplasty of left hip SNOMED Code(s): 064750158 ICD Code: Z96.642 - PRESENCE OF LEFT ARTIFICIAL HIP JOINT Status: Acute Current Visit: Yes (2) Abscess SNOMED Code(s): 809183134 ICD Code: L02.91 - CUTANEOUS ABSCESS, UNSPECIFIED Status: Acute Current Visit: Yes (3) History of recent blood transfusion SNOMED Code(s): 690266245 ICD Code: Z92.89 - PERSONAL HISTORY OF OTHER MEDICAL TREATMENT Status: Acute Current Visit: No Problem Details: 01/24/2017 x 2 units PRBC. Hgb 7 up to 9 then back to 8.5 on discharge 02/05/2017 (4) Prosthetic joint infection SNOMED Code(s): 350612386 ICD Code: T84.50XA - INFECT/INFLM REACTION DUE TO UNSP INT JOINT PROSTH, INIT Status: Acute Priority: High Current Visit: No Problem Details: Right hip (5) Atrial fibrillation SNOMED Code(s): 92778050 ICD Code: I48.91 - UNSPECIFIED ATRIAL FIBRILLATION Status: Chronic Current Visit: No Problem Details: high dose digoxin dosing with normal lab on 02/04/2017 Qualifiers: (6) Chronic anemia SNOMED Code(s): 496862168 ICD Code: D64.9 - ANEMIA, UNSPECIFIED Status: Chronic Current Visit: No (7) MRSA (methicillin resistant Staphylococcus aureus) SNOMED Code(s): 959758037 ICD Code: A49.02 - METHICILLIN RESIS STAPH INFECTION, UNSP SITE Status: Chronic Current Visit: No (8) Palliative care status SNOMED Code(s): 372056491 ICD Code: Z51.5 - ENCOUNTER FOR PALLIATIVE CARE Status: Chronic Current Visit: No (9) Hematuria SNOMED Code(s): 36689468 ICD Code: R31.9 - HEMATURIA, UNSPECIFIED Status: Resolved Current Visit: No Problem Details: sees urology Problem List Initiated/Reviewed/Updated: Yes Orders Last 24hrs: Active Orders 24 hr Category Date Time Status Patient Status [ADT] Routine ADT 05/21/17 14:05 Active May Shower [RC] ASDIRECTED Care 05/21/17 15:01 Active OT Evaluation and Treatment [CONS] Routine Cons 05/21/17 14:23 Active PT Evaluation and Treatment [CONS] Routine Cons 05/21/17 14:23 Active Heart Healthy Diet [DIET] Diet 05/22/17 Breakfast Active Acetaminophen [Tylenol] Med 05/21/17 16:40 Active 650 mg PO Q4H PRN Allopurinol [Zyloprim] Med 05/22/17 09:00 Active 300 mg PO DAILY Aspirin [Halfprin] Med 05/22/17 09:00 Active 81 mg PO DAILY Bisacodyl [Dulcolax] Med 05/21/17 16:40 Active 10 mg RECTAL DAILY PRN Bisacodyl [Dulcolax] Med 05/21/17 16:40 Active 5 mg PO BID PRN Cholecalciferol (Vitamin D3) [Vitamin D3] Med 05/22/17 09:00 Active 1,000 units PO DAILY DAPTOmycin [Cubicin] 552 mg Med 05/22/17 09:00 Active Sodium Chloride 0.9% [Normal Saline] 11.04 ml IV Q24H Digoxin [Lanoxin] Med 05/21/17 16:00 Active 125 mcg PO MOWEFR@1400 Ferrous Sulfate Med 05/21/17 21:00 Active 325 mg PO BID Finasteride [Proscar] Med 05/22/17 09:00 Active 5 mg PO DAILY Heparin Sodium Med 05/21/17 21:00 Active 5,000 units SUBCUT Q12H Hydrochlorothiazide Med 05/22/17 09:00 Active 25 mg PO DAILY Lisinopril [Prinivil] Med 05/22/17 09:00 Active 40 mg PO DAILY Magnesium Hydroxide [Milk of Magnesia] Med 05/21/17 16:40 Active 30 ml PO DAILY PRN Metoprolol Succinate [Toprol XL] Med 05/22/17 09:00 Active 100 mg PO DAILY Polyethylene Glycol 3350 [MiraLAX] Med 05/22/17 09:00 Active 17 gm PO DAILY Rifampin Med 05/21/17 21:00 Active 300 mg PO BID Sodium Chloride 0.65% [[place] Nasal Bliss] Med 05/21/17 16:40 Active 0 ml NASBOTH BID PRN Terazosin [Hytrin] Med 05/21/17 21:00 Active 5 mg PO BEDTIME oxyCODONE Med 05/21/17 16:40 Active 5 mg PO Q4H PRN Medication Orders Acetaminophen (Tylenol) 650 mg PO Q4H PRN PRN Reason: Pain Allopurinol (Zyloprim) 300 mg PO DAILY [facility] Aspirin (Halfprin) 81 mg PO DAILY [facility] Bisacodyl (Dulcolax) 5 mg PO BID PRN PRN Reason: Constipation Bisacodyl (Dulcolax) 10 mg RECTAL DAILY PRN PRN Reason: Constipation Cholecalciferol (Vitamin D3) 1,000 units PO DAILY [facility] Digoxin (Lanoxin) 125 mcg PO MOWEFR@1400 [facility] Last Admin: 05/21/17 17:24 Dose: 125 mcg Ferrous Sulfate (Ferrous Sulfate) 325 mg PO BID [facility] Finasteride (Proscar) 5 mg PO DAILY [facility] Heparin Sodium (Porcine) (Heparin Sodium) 5,000 units SUBCUT Q12H [facility] Hydrochlorothiazide (Hydrochlorothiazide) 25 mg PO DAILY [facility] Daptomycin 552 mg/ Sodium (Chloride) 11.04 mls @ 300 mls/hr IV Q24H [facility] Lisinopril (Prinivil) 40 mg PO DAILY [facility] Magnesium Hydroxide (Milk Of Magnesia) 30 ml PO DAILY PRN PRN Reason: Constipation Metoprolol Succinate (Toprol Xl) 100 mg PO DAILY [facility] Oxycodone HCl (Oxycodone) 5 mg PO Q4H PRN PRN Reason: Pain Polyethylene Glycol (Miralax) 17 gm PO DAILY [facility] Rifampin (Rifampin) 300 mg PO BID [facility] Sodium Chloride ([place] Nasal Bliss) 0 ml NASBOTH BID PRN PRN Reason: Congestion Terazosin HCl (Hytrin) 5 mg PO BEDTIME [facility] Assessment/Plan Comment:: 1. Admit to swing bed. 2.Patient wants to be a full code. 3. Heparin 5000 units subcutaneous 4. Oxycodone for pain. 5. Heart healthy diet. Okay for him to have ice cream per his request. 6. Continue the same medications as per [facility]. PT/OT. 7. Continue IV antibioti per [facility]. Daptomycin 552 mg every 24 hours. Rifampin 300 mg by mouth twice a day.
[2017-05-21] MEDS: Ferrous Sulfate 325 MG Tab PO SCH (20:50)
[2017-05-21] MEDS: oxyCODONE 5 MG Tab PO PRN (20:50)
[2017-05-21] MEDS: Rifampin 300 MG Cap PO SCH (20:51)
[2017-05-21] MEDS: Heparin Sodium 5,000 Units/ML Vial SUBCUT SCH (20:51)
[2017-05-21] MEDS: Terazosin 5 MG Cap PO SCH (20:52)
[2017-05-22] MEDS: Ferrous Sulfate 325 MG Tab PO SCH ×2 (08:18→20:20)
[2017-05-22] MEDS: Allopurinol 300 MG Tab PO SCH (08:18)
[2017-05-22] MEDS: Finasteride 5 MG Tab PO SCH (08:18)
[2017-05-22] MEDS: Metoprolol Succinate 100 MG Tab.ER PO SCH (08:19)
[2017-05-22] MEDS: Cholecalciferol (Vitamin D3) 1,000 Unit Tab PO SCH (08:20)
[2017-05-22] MEDS: Heparin Sodium 5,000 Units/ML Vial SUBCUT SCH ×2 (08:20→20:20)
[2017-05-22] MEDS: Aspirin 81 MG Tab.EC PO SCH (08:20)
[2017-05-22] MEDS: Hydrochlorothiazide 25 MG Tab PO SCH (08:20)
[2017-05-22] MEDS: Acetaminophen 325 MG Tab PO PRN (08:22)
[2017-05-22] MEDS: Polyethylene Glycol 3350 Powder 17 GM Packet PO SCH (08:23)
[2017-05-22] MEDS: Rifampin 300 MG Cap PO SCH ×2 (08:23→20:20)
[2017-05-22] MEDS: SODIUM CHLORIDE 0.9% IV SCH (09:03)
[2017-05-22] MEDS: DAPTOMYCIN IV SCH (09:03)
[2017-05-22] MEDS: oxyCODONE 5 MG Tab PO PRN (13:08)
[2017-05-22] MEDS: Terazosin 5 MG Cap PO SCH (20:20)
[2017-05-23] MEDS: Cholecalciferol (Vitamin D3) 1,000 Unit Tab PO SCH (08:14)
[2017-05-23] MEDS: Allopurinol 300 MG Tab PO SCH (08:14)
[2017-05-23] MEDS: Metoprolol Succinate 100 MG Tab.ER PO SCH (08:14)
[2017-05-23] MEDS: oxyCODONE 5 MG Tab PO PRN ×2 (08:15→13:22)
[2017-05-23] MEDS: Hydrochlorothiazide 25 MG Tab PO SCH (08:15)
[2017-05-23] MEDS: Rifampin 300 MG Cap PO SCH ×2 (08:15→20:27)
[2017-05-23] MEDS: Ferrous Sulfate 325 MG Tab PO SCH ×2 (08:15→20:26)
[2017-05-23] MEDS: Aspirin 81 MG Tab.EC PO SCH (08:15)
[2017-05-23] MEDS: Finasteride 5 MG Tab PO SCH (08:15)
[2017-05-23] MEDS: Polyethylene Glycol 3350 Powder 17 GM Packet PO SCH (08:16)
[2017-05-23] MEDS: Heparin Sodium 5,000 Units/ML Vial SUBCUT SCH ×2 (08:16→20:26)
[2017-05-23] MEDS: SODIUM CHLORIDE 0.9% IV SCH (09:31)
[2017-05-23] MEDS: Sodium Chloride 0.9% 10 ML Syringe FLUSH PRN ×2 (09:31→09:34)
[2017-05-23] MEDS: DAPTOMYCIN IV SCH (09:31)
[2017-05-23] MEDS: Heparin Sodium 10 Units/ML 5 ML Syringe FLUSH SCH (12:20)
[2017-05-23] MEDS: Digoxin 125 MCG Tab PO SCH (13:24)
[2017-05-23] MEDS: Docusate Sodium 100 MG Cap PO SCH ×2 (14:59→20:26)
[2017-05-23] MEDS: Terazosin 5 MG Cap PO SCH (20:26)
[2017-05-24] MEDS: oxyCODONE 5 MG Tab PO PRN ×4 (08:14→20:58)
[2017-05-24] MEDS: Metoprolol Succinate 100 MG Tab.ER PO SCH (08:15)
[2017-05-24] MEDS: Docusate Sodium 100 MG Cap PO SCH ×2 (08:15→20:53)
[2017-05-24] MEDS: Allopurinol 300 MG Tab PO SCH (08:16)
[2017-05-24] MEDS: Polyethylene Glycol 3350 Powder 17 GM Packet PO SCH (08:16)
[2017-05-24] MEDS: Hydrochlorothiazide 25 MG Tab PO SCH (08:16)
[2017-05-24] MEDS: Ferrous Sulfate 325 MG Tab PO SCH ×2 (08:16→20:53)
[2017-05-24] MEDS: Rifampin 300 MG Cap PO SCH ×2 (08:17→20:53)
[2017-05-24] MEDS: Heparin Sodium 5,000 Units/ML Vial SUBCUT SCH ×2 (08:17→20:53)
[2017-05-24] MEDS: Finasteride 5 MG Tab PO SCH (08:17)
[2017-05-24] MEDS: Aspirin 81 MG Tab.EC PO SCH (08:17)
[2017-05-24] MEDS: Cholecalciferol (Vitamin D3) 1,000 Unit Tab PO SCH (08:17)
[2017-05-24] MEDS: Sodium Chloride 0.9% 10 ML Syringe FLUSH PRN ×2 (10:03→10:06)
[2017-05-24] MEDS: DAPTOMYCIN IV SCH (10:03)
[2017-05-24] MEDS: SODIUM CHLORIDE 0.9% IV SCH (10:03)
[2017-05-24] MEDS: Heparin Sodium 10 Units/ML 5 ML Syringe FLUSH SCH (10:06)
[2017-05-24] MEDS: Terazosin 5 MG Cap PO SCH (20:53)
[2017-05-25] MEDS: Docusate Sodium 100 MG Cap PO SCH ×2 (08:37→21:06)
[2017-05-25] MEDS: Ferrous Sulfate 325 MG Tab PO SCH ×2 (08:58→21:06)
[2017-05-25] MEDS: Aspirin 81 MG Tab.EC PO SCH (08:58)
[2017-05-25] MEDS: Hydrochlorothiazide 25 MG Tab PO SCH (08:59)
[2017-05-25] MEDS: Finasteride 5 MG Tab PO SCH (08:59)
[2017-05-25] MEDS: Rifampin 300 MG Cap PO SCH ×2 (09:00→21:04)
[2017-05-25] MEDS: Cholecalciferol (Vitamin D3) 1,000 Unit Tab PO SCH (09:00)
[2017-05-25] MEDS: Metoprolol Succinate 100 MG Tab.ER PO SCH (09:00)
[2017-05-25] MEDS: Polyethylene Glycol 3350 Powder 17 GM Packet PO SCH (09:01)
[2017-05-25] MEDS: Allopurinol 300 MG Tab PO SCH (09:01)
[2017-05-25] MEDS: oxyCODONE 5 MG Tab PO PRN ×2 (09:02→17:02)
[2017-05-25] MEDS: Heparin Sodium 5,000 Units/ML Vial SUBCUT SCH ×2 (09:21→21:06)
[2017-05-25] MEDS: DAPTOMYCIN IV SCH (09:23)
[2017-05-25] MEDS: SODIUM CHLORIDE 0.9% IV SCH (09:23)
[2017-05-25] MEDS: Sodium Chloride 0.9% 10 ML Syringe FLUSH PRN (09:23)
[2017-05-25] MEDS: Heparin Sodium 10 Units/ML 5 ML Syringe FLUSH SCH (09:27)
[2017-05-25] MEDS: Digoxin 125 MCG Tab PO SCH (14:59)
--- NOTE | 2017-05-25 15:36 | PCM.PN ---
- General Info Date of Service: 05/25/17 Subjective Update: Patient is an 82-year-old gentleman currently on swing bed day #5 status post left hip ORIF with previous hardware removal due to abscess with MRSA. Initially had a left hip replacement in 1993, in December 2016 it was infected. He had a long course of antibiotics. He then developed abscess formation and required surgery. He was admitted on 05/[address] scan showed evidence of abscess in the muscle. He went to surgery on the and was discharged to this facility on the . Patient doing well today. Pain is well controlled. No chest pain, no shortness of breath, no nausea, no vomiting, no diarrhea. Of note , after my initial visit with the patient he had an episode of gross hematuria. He has had episodes of this intermittently with small amounts of blood at the end of his void since his hip troubles began. This time, he was voiding clear yellow urine and at the very end of the stream had passed some blood. He then had some stinging at the meatus. Otherwise he's had no symptoms of UTI. - Patient Data Vitals - Most Recent: Last Vital Signs Temp 36.4 C 05/25/17 08:10 Pulse 92 05/25/17 14:59 Resp 20 05/25/17 08:10 BP 103/60 05/25/17 09:00 Pulse Ox 95 05/25/17 08:10 Weight - Most Recent: 92.17 kg I&O - Last 24 Hours: Intake & Output 05/25/17 05/25/17 05/25/17 06:59 14:59 22:59 Intake Total 0 Output Total 500 Balance -500 Lab Results Last 24 Hours: Laboratory Results - last 24 hr 05/25/17 05/25/17 05/25/17 Range/Units 06:35 06:45 14:40 WBC 5.2 (4.5-12.0) X10-3/uL RBC 2.45 L (4.30-5.75) x10(6)uL Hgb 7.4 L (11.5-15.5) g/dL Hct 22.1 L (30.0-51.3) % MCV 90.1 (80-96) fL MCH 30.1 (27.7-33.6) pg MCHC 33.4 (32.2-35.4) g/dL RDW 17.8 H (11.5-15.5) % Plt Count 263 (125-369) X10(3)uL MPV 7.1 L (7.4-10.4) fL Neut % (Auto) 69.6 (46-82) % Lymph % (Auto) 13.2 (13-37) % [place] % (Auto) 8.0 (4-12) % Eos % (Auto) 9 H (1.0-5.0) % Baso % (Auto) 1 (0-2) % Neut # (Auto) 3.7 (1.6-8.3) # Lymph # (Auto) 0.7 (0.6-5.0) # [place] # (Auto) 0.4 (0.0-1.3) # Eos # (Auto) 0.4 (0.0-0.8) # Baso # (Auto) 0.0 (0.0-0.2) # Urine Color Red (YELLOW) Urine Appearance Cloudy (CLEAR) Urine pH 5.0 (5.0-6.5) Ur Specific [place] 1.010 (1.010-1.025) Urine Protein 30 H (NEGATIVE) mg/dL Urine Glucose (UA) Normal (NEGATIVE) mg/dL Urine Ketones 15 H (NEGATIVE) mg/dL Urine Occult Blood Large H (NEGATIVE) Urine Nitrite Negative (NEGATIVE) Urine Bilirubin Small H (NEGATIVE) Urine Urobilinogen 4 H (NEGATIVE) mg/dL Ur Leukocyte Esterase Moderate H (NEGATIVE) Urine RBC Semi-packed H (0) Urine WBC 10-20 H (0) Ur Squamous Epith Cells Occasional (NS,R,O) Urine Bacteria Moderate H (NS) Blood Type O POSITIVE Gel Antibody Screen Negative Med Orders - Current: Current Medications Acetaminophen (Tylenol) 650 mg PO Q4H PRN PRN Reason: Pain Last Admin: 05/22/17 08:22 Dose: 650 mg Allopurinol (Zyloprim) 300 mg PO DAILY [facility] Last Admin: 05/25/17 09:01 Dose: 300 mg Aspirin (Halfprin) 81 mg PO DAILY [facility] Last Admin: 05/25/17 08:58 Dose: 81 mg Bisacodyl (Dulcolax) 5 mg PO BID PRN PRN Reason: Constipation Bisacodyl (Dulcolax) 10 mg RECTAL DAILY PRN PRN Reason: Constipation Cholecalciferol (Vitamin D3) 1,000 units PO DAILY [facility] Last Admin: 05/25/17 09:00 Dose: 1,000 units Digoxin (Lanoxin) 125 mcg PO MOWEFR@1400 [facility] Last Admin: 05/25/17 14:59 Dose: 125 mcg Docusate Sodium (Colace) 100 mg PO BID [facility] Last Admin: 05/25/17 08:37 Dose: 100 mg Ferrous Sulfate (Ferrous Sulfate) 325 mg PO BID [facility] Last Admin: 05/25/17 08:58 Dose: 325 mg Finasteride (Proscar) 5 mg PO DAILY [facility] Last Admin: 05/25/17 08:59 Dose: 5 mg Heparin Sodium (Porcine) (Heparin Sodium) 5,000 units SUBCUT Q12H [facility] Stop: 06/08/17 09:01 Last Admin: 05/25/17 09:21 Dose: 5,000 units Heparin Sodium (Porcine) (Heparin Lock Flush 10 Units/Ml) 50 unit FLUSH DAILY [facility] Last Admin: 05/25/17 09:27 Dose: 50 unit Hydrochlorothiazide (Hydrochlorothiazide) 25 mg PO DAILY [facility] Last Admin: 05/25/17 08:59 Dose: 25 mg Daptomycin 552 mg/ Sodium (Chloride) 11.04 mls @ 300 mls/hr IV Q24H [facility] Last Admin: 05/25/17 09:23 Dose: 300 mls/hr Lisinopril (Prinivil) 40 mg PO DAILY [facility] Last Admin: 05/25/17 08:59 Dose: 40 mg Magnesium Hydroxide (Milk Of Magnesia) 30 ml PO DAILY PRN PRN Reason: Constipation Metoprolol Succinate (Toprol Xl) 100 mg PO DAILY [facility] Last Admin: 05/25/17 09:00 Dose: 100 mg Oxycodone HCl (Oxycodone) 5 mg PO Q4H PRN PRN Reason: Pain Last Admin: 05/25/17 09:02 Dose: 5 mg Polyethylene Glycol (Miralax) 17 gm PO DAILY [facility] Last Admin: 05/25/17 09:01 Dose: Not Given Rifampin (Rifampin) 300 mg PO BID [facility] Last Admin: 05/25/17 09:00 Dose: 300 mg Sodium Chloride ([place] Nasal [place]) 0 ml NASBOTH BID PRN PRN Reason: Congestion Sodium Chloride (Saline Flush) 10 ml FLUSH ASDIRECTED PRN PRN Reason: flush med Last Admin: 05/25/17 09:23 Dose: 10 ml Terazosin HCl (Hytrin) 5 mg PO BEDTIME [facility] Last Admin: 05/24/17 20:53 Dose: 5 mg Discontinued Medications Heparin Sodium (Porcine) (Heparin Lock Flush 100 Units/Ml) 300 units FLUSH BID [facility] Last Admin: 05/24/17 00:40 Dose: Not Given - Exam General: Alert, Oriented, Cooperative, No Acute Distress HEENT: Pupils Equal, Pupils Reactive Neck: Supple Extremities: Pedal Edema (+1 edema on right.) Wound/Incisions: Dressing Dry and Intact - Problem List & Annotations (1) Prosthetic joint infection SNOMED Code(s): 903549080 Code(s): T84.50XA - INFECT/INFLM REACTION DUE TO UNSP INT JOINT PROSTH, INIT Status: Acute Priority: High Current Visit: No Annotation/Comment:: Status post replacement 05/16/17. Continue PT/OT. Pain management as needed. (2) MRSA (methicillin resistant Staphylococcus aureus) SNOMED Code(s): 937503466 Code(s): A49.02 - METHICILLIN RESIS STAPH INFECTION, UNSP SITE Status: Chronic Current Visit: No Annotation/Comment:: From prosthetic joint. Currently on daptomycin IV every 24 hours and rifampin 300 mg by mouth twice a day. Will require long-term therapy through the end of June. (3) Atrial fibrillation SNOMED Code(s): 89517531 Code(s): I48.91 - UNSPECIFIED ATRIAL FIBRILLATION Status: Chronic Current Visit: No Qualifiers: Annotation/Comment:: On digoxin for rate control as well as Toprol-XL. Heart rate in the 90s. Given patient's current anemia after surgery, reasonable control. (4) Chronic anemia SNOMED Code(s): 199246929 Code(s): D64.9 - ANEMIA, UNSPECIFIED Status: Chronic Current Visit: No Annotation/Comment:: Patient has struggled with anemia likely secondary to bone marrow suppression due to chronic infection. He did require multiple transfusions in [place]. Hemoglobin was 7 on discharge here and now is 7.4. Patient is on twice a day iron. Is currently on heparin 5000 units twice a day for DVT prophylaxis. No anticoagulation for atrial fibrillation and stroke prevention. Monitor. (5) Hematuria SNOMED Code(s): 05638894 Code(s): R31.9 - HEMATURIA, UNSPECIFIED Status: Resolved Current Visit: No Qualifiers: Hematuria type: gross Qualified Code(s): R31.0 - Gross hematuria Annotation/Comment:: Saw urology during January hospitalization and had a scoping done at that time to evacuate a hematoma. At this point urinalysis is positive for leukocytes and bacteria. I'm going to treat with Bactrim DS to cover gram-negative organisms as daptomycin should cover gram positives. We'll wait for culture. I did ask for a type and screen on the patient as his hemoglobin is low enough that he does not have much reserve. (6) DVT prophylaxis SNOMED Code(s): 360714007, 037090425 Code(s): AGA7410 - Status: Acute Current Visit: Yes Annotation/Comment :: Heparin. - Problem List Review Problem List Initiated/Reviewed/Updated: Yes - My Orders Last 24 Hours: My Active Orders 05/25/17 14:40 CULTURE URINE [RM] Routine UA W/MICROSCOPIC [URIN] Routine
[2017-05-25] MEDS: Terazosin 5 MG Cap PO SCH (21:04)
[2017-05-25] MEDS: Sulfamethoxazole/Trimethoprim 800-160 MG Tab PO SCH (21:06)
[2017-05-26] MEDS: Sodium Chloride 0.9% 10 ML Syringe FLUSH PRN ×2 (06:44→20:05)
[2017-05-26] MEDS ORDERED: Sodium Chloride 0.9% 1,000 ML IV SCH ×2 (08:00→09:15)
[2017-05-26] MEDS: oxyCODONE 5 MG Tab PO PRN ×2 (08:15→14:08)
[2017-05-26] MEDS: Docusate Sodium 100 MG Cap PO SCH ×2 (09:14→20:36)
[2017-05-26] MEDS: Ferrous Sulfate 325 MG Tab PO SCH ×2 (09:16→20:36)
[2017-05-26] MEDS: Aspirin 81 MG Tab.EC PO SCH (09:16)
[2017-05-26] MEDS: Heparin Sodium 5,000 Units/ML Vial SUBCUT SCH ×2 (09:17→20:36)
[2017-05-26] MEDS: Rifampin 300 MG Cap PO SCH ×2 (09:19→20:36)
[2017-05-26] MEDS: Polyethylene Glycol 3350 Powder 17 GM Packet PO SCH (09:19)
[2017-05-26] MEDS: Finasteride 5 MG Tab PO SCH (09:19)
[2017-05-26] MEDS: Sulfamethoxazole/Trimethoprim 800-160 MG Tab PO SCH ×2 (09:20→20:36)
[2017-05-26] MEDS: Metoprolol Succinate 100 MG Tab.ER PO SCH (09:20)
[2017-05-26] MEDS: Cholecalciferol (Vitamin D3) 1,000 Unit Tab PO SCH (09:20)
[2017-05-26] MEDS: Allopurinol 300 MG Tab PO SCH (09:21)
[2017-05-26] MEDS: SODIUM CHLORIDE 0.9% IV SCH (09:45)
[2017-05-26] MEDS: DAPTOMYCIN IV SCH (09:45)
--- NOTE | 2017-05-26 10:52 | PCM.SN ---
- Free Text/Narrative Note: Patient is an 82-year-old male currently on swing bed day #6 for hip arthroplasty status post hardware removal for osteomyelitis and abscess with MRSA. He started to have gross bloody urine yesterday and UA showed leukocyte esterase and moderate bacteria. Patient had dysuria and frequency. The dysuria has improved. He continues to pass some blood clots but is able to void. No fevers or chills. Vital signs are stable. He's had problems with hematuria in the past and has required 3-way irrigation and urology consultation for this. He continues on heparin for DVT prophylaxis and needs another 18 days of this. On labs this morning, creatinine was up to 1.5 with a BUN of 44. I stopped the patient's hydrochlorothiazide and ordered 1 L normal saline bolus infused slowly. We'll check the patient's hemoglobin again tomorrow and if still in the 7 range or drifting down we will transfuse 1 unit of packed red blood cells as patient's oncotic pressure is low and he has very little reserve with such a low hemoglobin. Discussed 3-way bladder irrigation with the patient and at this time will hold off to see what he does. Creatinine clearance is still greater than 30 so antibiotics do not require adjustment at this time. Will reduce allopurinol to 100 mg daily. Will check a uric acid level in the a.m. to see if this is less than 6 at baseline. We will recheck a digoxin level tomorrow as well. Urine culture is still pending.
[2017-05-26] MEDS: Acetaminophen 325 MG Tab PO PRN (16:23)
[2017-05-26] MEDS: Heparin Sodium 10 Units/ML 5 ML Syringe FLUSH SCH (20:05)
[2017-05-26] MEDS: Terazosin 5 MG Cap PO SCH (20:36)
[2017-05-27] MEDS: Sodium Chloride 0.9% 10 ML Syringe FLUSH PRN ×2 (06:04→13:45)
[2017-05-27] MEDS ORDERED: Furosemide 20 MG/2 ML VIAL IVPUSH ONE (07:35)
[2017-05-27] MEDS ORDERED: diphenhydrAMINE 25 MG Cap PO ONE (07:35)
--- NOTE | 2017-05-27 08:17 | PCM.PN ---
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 Patient continues to pass some blood clots but his urine has cleared for the most part. He tells me he struggled to void last night when he stood up this morning he voided over thousand cc initially with some blood clots then with clear yellow urine stream. He's had no chest pain, no shortness of breath, no nausea, no vomiting. However he feels a little shaky and weak today. Hemoglobin this morning was 6.8. - Patient Data Vitals - Most Recent: Last Vital Signs Temp 36.3 C 05/26/17 08:00 Pulse 111 H 05/26/17 09:20 Resp 20 05/26/17 08:00 BP 113/55 L 05/26/17 20:36 Pulse Ox 96 05/26/17 08:00 Weight - Most Recent: 92.17 kg I&O - Last 24 Hours: Intake & Output 05/26/17 05/27/17 05/27/17 22:59 06:59 14:59 Intake Total 1000 Output Total 200 Balance 800 Lab Results Last 24 Hours: Laboratory Results - last 24 hr 05/25/17 05/27/17 05/27/17 Range/Units 06:45 06:02 06:02 WBC 5.1 (4.5-12.0) X10-3/uL RBC 2.24 L (4.30-5.75) x10(6)uL Hgb 6.8 L* (11.5-15.5) g/dL Hct 20.4 L* (30.0-51.3) % MCV 91.0 (80-96) fL MCH 30.5 (27.7-33.6) pg MCHC 33.5 (32.2-35.4) g/dL RDW 18.0 H (11.5-15.5) % Plt Count 297 (125-369) X10(3)uL MPV 6.9 L (7.4-10.4) fL Neut % (Auto) 66.8 (46-82) % Lymph % (Auto) 12.9 L (13-37) % [place] % (Auto) 9.2 (4-12) % Eos % (Auto) 11 H (1.0-5.0) % Baso % (Auto) 0 (0-2) % Neut # (Auto) 3.3 (1.6-8.3) # Lymph # (Auto) 0.7 (0.6-5.0) # [place] # (Auto) 0.5 (0.0-1.3) # Eos # (Auto) 0.6 (0.0-0.8) # Baso # (Auto) 0.0 (0.0-0.2) # Sodium 133 L (135-145) mmol/L Potassium 4.4 (3.5-5.3) mmol/L Chloride 100 (100-110) mmol/L Carbon Dioxide 27 (21-32) mmol/L BUN 44 H (7-18) mg/dL Creatinine 1.7 H (0.70-1.30) mg/dL Est Cr Clr Drug Dosing 34.00 mL/min Estimated GFR (MDRD) 39 L (>60) BUN/Creatinine Ratio 25.9 H (9-20) Glucose 84 (80-116) mg/dL Uric Acid 5.1 (2.6-6.0) mg/dL Calcium 8.8 (8.6-10.2) mg/dL Total Bilirubin 0.5 (0.1-1.3) mg/dL AST 23 (5-25) IU/L ALT 14 D (12-36) U/L Alkaline Phosphatase 169 H (56-112) IU/L Total Protein 6.3 (6.0-8.0) g/dL Albumin 1.8 L (3.2-4.6) g/dL Globulin 4.5 g/dL Albumin/Globulin Ratio 0.4 Digoxin (0.9-2.0) ng/mL Crossmatch See Detail 05/27/17 Range/Units 06:02 WBC (4.5-12.0) X10-3/uL RBC (4.30-5.75) x10(6)uL Hgb (11.5-15.5) g/dL Hct (30.0-51.3) % MCV (80-96) fL MCH (27.7-33.6) pg MCHC (32.2-35.4) g/dL RDW (11.5-15.5) % Plt Count (125-369) X10(3)uL MPV (7.4-10.4) fL Neut % (Auto) (46-82) % Lymph % (Auto) (13-37) % [place] % (Auto) (4-12) % Eos % (Auto) (1.0-5.0) % Baso % (Auto) (0-2) % Neut # (Auto) (1.6-8.3) # Lymph # (Auto) (0.6-5.0) # [place] # (Auto) (0.0-1.3) # Eos # (Auto) (0.0-0.8) # Baso # (Auto) (0.0-0.2) # Sodium (135-145) mmol/L Potassium (3.5-5.3) mmol/L Chloride (100-110) mmol/L Carbon Dioxide (21-32) mmol/L BUN (7-18) mg/dL Creatinine (0.70-1.30) mg/dL Est Cr Clr Drug Dosing mL/min Estimated GFR (MDRD) (>60) BUN/Creatinine Ratio (9-20) Glucose (80-116) mg/dL Uric Acid (2.6-6.0) mg/dL Calcium (8.6-10.2) mg/dL Total Bilirubin (0.1-1.3) mg/dL AST (5-25) IU/L ALT (12-36) U/L Alkaline Phosphatase (56-112) IU/L Total Protein (6.0-8.0) g/dL Albumin (3.2-4.6) g/dL Globulin g/dL Albumin/Globulin Ratio Digoxin 0.3 L (0.9-2.0) ng/mL Crossmatch Scotty Results Last 24 Hours: Microbiology 05/25/17 14:40 Urine Culture - Preliminary Urine, Voided NO GROWTH AFTER 1 DAY Med Orders - Current: Current Medications Acetaminophen (Tylenol) 650 mg PO Q4H PRN PRN Reason: Pain Last Admin: 05/26/17 16:23 Dose: 650 mg Allopurinol (Zyloprim) 100 mg PO DAILY [facility] Aspirin (Halfprin) 81 mg PO DAILY [facility] Last Admin: 05/26/17 09:16 Dose: 81 mg Bisacodyl (Dulcolax) 5 mg PO BID PRN PRN Reason: Constipation Bisacodyl (Dulcolax) 10 mg RECTAL DAILY PRN PRN Reason: Constipation Cholecalciferol (Vitamin D3) 1,000 units PO DAILY [facility] Last Admin: 05/26/17 09:20 Dose: 1,000 units Digoxin (Lanoxin) 125 mcg PO MOWEFR@1400 [facility] Last Admin: 05/25/17 14:59 Dose: 125 mcg Docusate Sodium (Colace) 100 mg PO BID [facility] Last Admin: 05/26/17 20:36 Dose: 100 mg Ferrous Sulfate (Ferrous Sulfate) 325 mg PO BID [facility] Last Admin: 05/26/17 20:36 Dose: 325 mg Finasteride (Proscar) 5 mg PO DAILY [facility] Last Admin: 05/26/17 09:19 Dose: 5 mg Heparin Sodium (Porcine) (Heparin Sodium) 5,000 units SUBCUT Q12H [facility] Stop: 06/08/17 09:01 Last Admin: 05/26/17 20:36 Dose: 5,000 units Heparin Sodium (Porcine) (Heparin Lock Flush 10 Units/Ml) 50 unit FLUSH DAILY [facility] Last Admin: 05/26/17 20:05 Dose: 50 unit Daptomycin 552 mg/ Sodium (Chloride) 11.04 mls @ 300 mls/hr IV Q24H [facility] Last Admin: 05/26/17 09:45 Dose: 300 mls/hr Lisinopril (Prinivil) 40 mg PO DAILY [facility] Last Admin: 05/26/17 09:18 Dose: 40 mg Magnesium Hydroxide (Milk Of Magnesia) 30 ml PO DAILY PRN PRN Reason: Constipation Metoprolol Succinate (Toprol Xl) 100 mg PO DAILY [facility] Last Admin: 05/26/17 09:20 Dose: 100 mg Oxycodone HCl (Oxycodone) 5 mg PO Q4H PRN PRN Reason: Pain Last Admin: 05/26/17 14:08 Dose: 5 mg Polyethylene Glycol (Miralax) 17 gm PO DAILY [facility] Last Admin: 05/26/17 09:19 Dose: Not Given Rifampin (Rifampin) 300 mg PO BID [facility] Last Admin: 05/26/17 20:36 Dose: 300 mg Sodium Chloride ([place] Nasal [place]) 0 ml NASBOTH BID PRN PRN Reason: Congestion Sodium Chloride (Saline Flush) 10 ml FLUSH ASDIRECTED PRN PRN Reason: flush med Last Admin: 05/27/17 06:04 Dose: 10 ml Terazosin HCl (Hytrin) 5 mg PO BEDTIME [facility] Last Admin: 05/26/17 20:36 Dose: 5 mg Trimethoprim/Sulfamethoxazole (Septra Ds) 1 tab PO BID [facility] Stop: 06/01/17 21:01 Last Admin: 05/26/17 20:36 Dose: 1 tab Discontinued Medications Allopurinol (Zyloprim) 300 mg PO DAILY [facility] Last Admin: 05/26/17 09:21 Dose: 300 mg Diphenhydramine HCl (Benadryl) 25 mg PO ONETIME ONE Stop: 05/27/17 07:36 Furosemide (Lasix) 20 mg IVPUSH NOW ONE Stop: 05/27/17 07:36 Heparin Sodium (Porcine) (Heparin Lock Flush 100 Units/Ml) 300 units FLUSH BID [facility] Last Admin: 05/24/17 00:40 Dose: Not Given Hydrochlorothiazide (Hydrochlorothiazide) 25 mg PO DAILY [facility] Last Admin: 05/25/17 08:59 Dose: 25 mg Sodium Chloride (Normal Saline) 1,000 mls @ 999 mls/hr IV ASDIRECTED [facility] Stop: 05/27/17 09:01 Sodium Chloride (Normal Saline) 1,000 mls @ 100 mls/hr IV ASDIRECTED [facility] Stop: 05/26/17 19:14 Last Admin: 05/26/17 09:44 Dose: 100 mls/hr - Exam General: Alert, Oriented, Cooperative, No Acute Distress HEENT: Pupils Equal, Pupils Reactive Neck: Supple Lungs: Clear to Auscultation, Normal Respiratory Effort Cardiovascular: No Murmurs, Irregular Rhythm GI/Abdominal Exam: Normal Bowel Sounds, Soft, Non-Tender, No Distention Extremities: No Pedal Edema Neurological: No New Focal Deficit Psy/Mental Status: Alert, Normal Affect, Normal Mood - Problem List & Annotations (1) Prosthetic joint infection SNOMED Code(s): 977324777 Code(s): T84.50XA - INFECT/INFLM REACTION DUE TO UNSP INT JOINT PROSTH, INIT Status: Acute Priority: High Current Visit: No Annotation/Comment:: Status post replacement 05/16/17. Continue PT/OT. Pain management as needed. Continue daptomycin through I believe May 23. (2) MRSA (methicillin resistant Staphylococcus aureus) SNOMED Code(s): 590076688 Code(s): A49.02 - METHICILLIN RESIS STAPH INFECTION, UNSP SITE Status: Chronic Current Visit: No Annotation/Comment:: From prosthetic joint. Currently on daptomycin IV every 24 hours and rifampin 300 mg by mouth twice a day. Will require long-term therapy through the end of June. (3) Atrial fibrillation SNOMED Code(s): 08185958 Code(s): I48.91 - UNSPECIFIED ATRIAL FIBRILLATION Status: Chronic Current Visit: No Qualifiers: Annotation/Comment:: On digoxin for rate control as well as Toprol-XL. Heart rate in the 90s. Given patient's current anemia after surgery, reasonable control. Patient has not been anticoagulated for this since January because of bleeding and anemia. (4) Chronic anemia SNOMED Code(s): 615974308 Code(s): D64.9 - ANEMIA, UNSPECIFIED Status: Chronic Current Visit: No Annotation/Comment:: Hemoglobin today 6.8. I'm going to transfuse 1 unit packed red blood cells with Lasix to follow. Will hold heparin today. Although patient is for the most part asymptomatic, creatinines is starting to climb and he is very weak. He's also had an increased heart rate which I think is suggestive that his acute anemia on chronic anemia is symptomatic. If necessary we will transfuse a second unit tomorrow. (5) Hematuria SNOMED Code(s): 44139937 Code(s): R31.9 - HEMATURIA, UNSPECIFIED Status: Resolved Current Visit: No Qualifiers: Hematuria type: gross Qualified Code(s): R31.0 - Gross hematuria Annotation/Comment:: Currently on Bactrim DS. Urine culture still has shown no growth. I'd suggested last evening doing three-way bladder irrigation but patient has had this done before and found it extremely unpleasant. He continues to decline this and as he is showing improvement this morning we'll hold heparin and follow. (6) DVT prophylaxis SNOMED Code(s): 679275533, 575956277 Code(s): MBB5972 - Status: Acute Current Visit: Yes Annotation/Comment :: SCDs, hold heparin today. - Problem List Review Problem List Initiated/Reviewed/Updated: Yes - My Orders Last 24 Hours: My Active Orders 05/27/17 07:35 RED BLOOD CELLS LP [BBK] Routine Blood Transfusion Reflex Set [OM.PC] Routine Transfuse Red Blood Cells [COMM] Routine 05/27/17 07:36 Verify Patient Consent Obtain [RC] ASDIRECTED 05/27/17 09:00 Allopurinol [Zyloprim] 100 mg PO DAILY 05/28/17 05:11 BASIC METABOLIC PANEL,BMP [CHEM] AM CBC WITH AUTO DIFF [HEME] AM
[2017-05-27] MEDS: Ferrous Sulfate 325 MG Tab PO SCH ×2 (08:39→21:11)
[2017-05-27] MEDS: Docusate Sodium 100 MG Cap PO SCH ×2 (08:39→21:10)
[2017-05-27] MEDS: Sulfamethoxazole/Trimethoprim 800-160 MG Tab PO SCH ×2 (08:39→21:11)
[2017-05-27] MEDS: Finasteride 5 MG Tab PO SCH (08:40)
[2017-05-27] MEDS: Aspirin 81 MG Tab.EC PO SCH (08:41)
[2017-05-27] MEDS: Heparin Sodium 10 Units/ML 5 ML Syringe FLUSH SCH (08:41)
[2017-05-27] MEDS: Rifampin 300 MG Cap PO SCH ×2 (08:41→21:11)
[2017-05-27] MEDS: Cholecalciferol (Vitamin D3) 1,000 Unit Tab PO SCH (08:41)
[2017-05-27] MEDS: oxyCODONE 5 MG Tab PO PRN ×2 (08:48→13:42)
[2017-05-27] MEDS: Allopurinol 100 MG Tab PO SCH (08:49)
[2017-05-27] MEDS: SODIUM CHLORIDE 0.9% IV SCH (08:53)
[2017-05-27] MEDS: DAPTOMYCIN IV SCH (08:53)
[2017-05-27] MEDS: Polyethylene Glycol 3350 Powder 17 GM Packet PO SCH (09:00)
[2017-05-27] MEDS: Metoprolol Succinate 100 MG Tab.ER PO SCH (09:00)
[2017-05-27] MEDS: Terazosin 5 MG Cap PO SCH (21:11)
[2017-05-28] MEDS: Heparin Sodium 10 Units/ML 5 ML Syringe FLUSH SCH ×2 (06:40→09:19)
[2017-05-28] MEDS: Sodium Chloride 0.9% 10 ML Syringe FLUSH PRN ×2 (06:40→09:14)
[2017-05-28] MEDS: Docusate Sodium 100 MG Cap PO SCH ×2 (08:49→21:06)
[2017-05-28] MEDS: Polyethylene Glycol 3350 Powder 17 GM Packet PO SCH (08:50)
[2017-05-28] MEDS: Finasteride 5 MG Tab PO SCH (08:50)
[2017-05-28] MEDS: Rifampin 300 MG Cap PO SCH ×2 (08:50→21:12)
[2017-05-28] MEDS: Allopurinol 100 MG Tab PO SCH (08:51)
[2017-05-28] MEDS: Cholecalciferol (Vitamin D3) 1,000 Unit Tab PO SCH (08:51)
[2017-05-28] MEDS: Sulfamethoxazole/Trimethoprim 800-160 MG Tab PO SCH ×2 (08:52→21:12)
[2017-05-28] MEDS: oxyCODONE 5 MG Tab PO PRN ×2 (08:56→13:07)
[2017-05-28] MEDS: Metoprolol Succinate 100 MG Tab.ER PO SCH (09:06)
[2017-05-28] MEDS: Heparin Sodium 5,000 Units/ML Vial SUBCUT SCH ×2 (09:09→21:08)
[2017-05-28] MEDS: Ferrous Sulfate 325 MG Tab PO SCH ×2 (09:11→21:07)
[2017-05-28] MEDS: SODIUM CHLORIDE 0.9% IV SCH (09:14)
[2017-05-28] MEDS: DAPTOMYCIN IV SCH (09:14)
[2017-05-28] MEDS: Digoxin 125 MCG Tab PO SCH (13:08)
--- NOTE | 2017-05-28 14:19 | PCM.PN ---
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 Doing well today. No chest pain, no shortness of breath, no nausea, no vomiting. No more blood in the urine. No dysuria. Heparin was held for 24 hours and restarted this morning. Aspirin is continuing to be held. Hemoglobin was 7.5 after transfusion of 1 unit yesterday. - Patient Data Vitals - Most Recent: Last Vital Signs Temp 36.6 C 05/28/17 07:20 Pulse 110 H 05/28/17 13:08 Resp 22 H 05/28/17 07:20 BP 137/77 05/28/17 09:06 Pulse Ox 93 L 05/28/17 07:20 Weight - Most Recent: 92.17 kg I&O - Last 24 Hours: Intake & Output 05/27/17 05/28/17 05/28/17 22:59 06:59 14:59 Output Total 675 250 Balance -675 -250 Lab Results Last 24 Hours: Laboratory Results - last 24 hr 05/25/17 05/28/17 05/28/17 Range/Units 06:45 06:40 06:40 WBC 5.3 (4.5-12.0) X10-3/uL RBC 2.58 L (4.30-5.75) x10(6)uL Hgb 7.5 L (11.5-15.5) g/dL Hct 23.5 L (30.0-51.3) % MCV 90.9 (80-96) fL MCH 28.9 (27.7-33.6) pg MCHC 31.8 L (32.2-35.4) g/dL RDW 17.7 H (11.5-15.5) % Plt Count 344 (125-369) X10(3)uL MPV 6.7 L (7.4-10.4) fL Neut % (Auto) 69.5 (46-82) % Lymph % (Auto) 12.4 L (13-37) % [place] % (Auto) 7.7 (4-12) % Eos % (Auto) 10 H (1.0-5.0) % Baso % (Auto) 1 (0-2) % Neut # (Auto) 3.7 (1.6-8.3) # Lymph # (Auto) 0.7 (0.6-5.0) # [place] # (Auto) 0.4 (0.0-1.3) # Eos # (Auto) 0.5 (0.0-0.8) # Baso # (Auto) 0.0 (0.0-0.2) # Sodium 134 L (135-145) mmol/L Potassium 4.3 (3.5-5.3) mmol/L Chloride 100 (100-110) mmol/L Carbon Dioxide 25 (21-32) mmol/L BUN 45 H (7-18) mg/dL Creatinine 1.7 H (0.70-1.30) mg/dL Est Cr Clr Drug Dosing 34.00 mL/min Estimated GFR (MDRD) 39 L (>60) BUN/Creatinine Ratio 26.5 H (9-20) Glucose 86 (80-116) mg/dL Calcium 8.9 (8.6-10.2) mg/dL AST 25 (5-25) IU/L Creatine Kinase 47 L (60-160) IU/L C-Reactive Protein (0.5-0.9) mg/dL Crossmatch See Detail 05/28/17 Range/Units 06:40 WBC (4.5-12.0) X10-3/uL RBC (4.30-5.75) x10(6)uL Hgb (11.5-15.5) g/dL Hct (30.0-51.3) % MCV (80-96) fL MCH (27.7-33.6) pg MCHC (32.2-35.4) g/dL RDW (11.5-15.5) % Plt Count (125-369) X10(3)uL MPV (7.4-10.4) fL Neut % (Auto) (46-82) % Lymph % (Auto) (13-37) % [place] % (Auto) (4-12) % Eos % (Auto) (1.0-5.0) % Baso % (Auto) (0-2) % Neut # (Auto) (1.6-8.3) # Lymph # (Auto) (0.6-5.0) # [place] # (Auto) (0.0-1.3) # Eos # (Auto) (0.0-0.8) # Baso # (Auto) (0.0-0.2) # Sodium (135-145) mmol/L Potassium (3.5-5.3) mmol/L Chloride (100-110) mmol/L Carbon Dioxide (21-32) mmol/L BUN (7-18) mg/dL Creatinine (0.70-1.30) mg/dL Est Cr Clr Drug Dosing mL/min Estimated GFR (MDRD) (>60) BUN/Creatinine Ratio (9-20) Glucose (80-116) mg/dL Calcium (8.6-10.2) mg/dL AST (5-25) IU/L Creatine Kinase (60-160) IU/L C-Reactive Protein 7.8 H* (0.5-0.9) mg/dL Crossmatch Scotty Results Last 24 Hours: Microbiology 05/25/17 14:40 Urine Culture - Final Urine, Voided No Growth Med Orders - Current: Current Medications Acetaminophen (Tylenol) 650 mg PO Q4H PRN PRN Reason: Pain Last Admin: 05/26/17 16:23 Dose: 650 mg Allopurinol (Zyloprim) 100 mg PO DAILY [facility] Last Admin: 05/28/17 08:51 Dose: 100 mg Bisacodyl (Dulcolax) 5 mg PO BID PRN PRN Reason: Constipation Bisacodyl (Dulcolax) 10 mg RECTAL DAILY PRN PRN Reason: Constipation Cholecalciferol (Vitamin D3) 1,000 units PO DAILY [facility] Last Admin: 05/28/17 08:51 Dose: 1,000 units Digoxin (Lanoxin) 125 mcg PO MOWEFR@1400 [facility] Last Admin: 05/28/17 13:08 Dose: 125 mcg Docusate Sodium (Colace) 100 mg PO BID [facility] Last Admin: 05/28/17 08:49 Dose: Not Given Ferrous Sulfate (Ferrous Sulfate) 325 mg PO BID [facility] Last Admin: 05/28/17 09:11 Dose: 325 mg Finasteride (Proscar) 5 mg PO DAILY [facility] Last Admin: 05/28/17 08:50 Dose: 5 mg Heparin Sodium (Porcine) (Heparin Sodium) 5,000 units SUBCUT Q12H [facility] Stop: 06/09/17 09:01 Last Admin: 05/28/17 09:09 Dose: 5,000 units Heparin Sodium (Porcine) (Heparin Lock Flush 10 Units/Ml) 50 unit FLUSH DAILY [facility] Last Admin: 05/28/17 09:19 Dose: 50 unit Daptomycin 552 mg/ Sodium (Chloride) 11.04 mls @ 300 mls/hr IV Q24H [facility] Last Admin: 05/28/17 09:14 Dose: 300 mls/hr Lisinopril (Prinivil) 40 mg PO DAILY [facility] Last Admin: 05/28/17 09:08 Dose: 40 mg Magnesium Hydroxide (Milk Of Magnesia) 30 ml PO DAILY PRN PRN Reason: Constipation Metoprolol Succinate (Toprol Xl) 100 mg PO DAILY [facility] Last Admin: 05/28/17 09:06 Dose: 100 mg Oxycodone HCl (Oxycodone) 5 mg PO Q4H PRN PRN Reason: Pain Last Admin: 05/28/17 13:07 Dose: 5 mg Polyethylene Glycol (Miralax) 17 gm PO DAILY [facility] Last Admin: 05/28/17 08:50 Dose: Not Given Rifampin (Rifampin) 300 mg PO BID [facility] Last Admin: 05/28/17 08:50 Dose: 300 mg Sodium Chloride ([place] Nasal [place]) 0 ml NASBOTH BID PRN PRN Reason: Congestion Sodium Chloride (Saline Flush) 10 ml FLUSH ASDIRECTED PRN PRN Reason: flush med Last Admin: 05/28/17 09:14 Dose: 10 ml Terazosin HCl (Hytrin) 5 mg PO BEDTIME [facility] Last Admin: 05/27/17 21:11 Dose: 5 mg Trimethoprim/Sulfamethoxazole (Septra Ds) 1 tab PO BID [facility] Stop: 06/01/17 21:01 Last Admin: 05/28/17 08:52 Dose: 1 tab Discontinued Medications Allopurinol (Zyloprim) 300 mg PO DAILY [facility] Last Admin: 05/26/17 09:21 Dose: 300 mg Aspirin (Halfprin) 81 mg PO DAILY [facility] Last Admin: 05/27/17 08:41 Dose: 81 mg Diphenhydramine HCl (Benadryl) 25 mg PO ONETIME ONE Stop: 05/27/17 07:36 Last Admin: 05/27/17 09:51 Dose: 25 mg Furosemide (Lasix) 20 mg IVPUSH NOW ONE Stop: 05/27/17 07:36 Last Admin: 05/27/17 13:46 Dose: 20 mg Heparin Sodium (Porcine) (Heparin Lock Flush 100 Units/Ml) 300 units FLUSH BID [facility] Last Admin: 05/24/17 00:40 Dose: Not Given Hydrochlorothiazide (Hydrochlorothiazide) 25 mg PO DAILY [facility] Last Admin: 05/25/17 08:59 Dose: 25 mg Sodium Chloride (Normal Saline) 1,000 mls @ 999 mls/hr IV ASDIRECTED [facility] Stop: 05/27/17 09:01 Sodium Chloride (Normal Saline) 1,000 mls @ 100 mls/hr IV ASDIRECTED [facility] Stop: 05/26/17 19:14 Last Admin: 05/26/17 09:44 Dose: 100 mls/hr - Exam General: Alert, Oriented, Cooperative, No Acute Distress - Problem List & Annotations (1) Prosthetic joint infection SNOMED Code(s): 433684250 Code(s): T84.50XA - INFECT/INFLM REACTION DUE TO UNSP INT JOINT PROSTH, INIT Status: Acute Priority: High Current Visit: No Annotation/Comment:: Status post replacement 05/16/17. Continue PT/OT. Pain management as needed. Continue daptomycin through I believe June 27. (2) MRSA (methicillin resistant Staphylococcus aureus) SNOMED Code(s): 642578633 Code(s): A49.02 - METHICILLIN RESIS STAPH INFECTION, UNSP SITE Status: Chronic Current Visit: No Annotation/Comment:: From prosthetic joint. Currently on daptomycin IV every 24 hours and rifampin 300 mg by mouth twice a day. Will require long-term therapy through the end of June. (3) Atrial fibrillation SNOMED Code(s): 23813551 Code(s): I48.91 - UNSPECIFIED ATRIAL FIBRILLATION Status: Chronic Current Visit: No Qualifiers: Annotation/Comment:: On digoxin for rate control as well as Toprol-XL. Heart rate in the 90s. Given patient's current anemia after surgery, reasonable control. Patient has not been anticoagulated for this since January because of bleeding and anemia. (4) Chronic anemia SNOMED Code(s): 170040928 Code(s): D64.9 - ANEMIA, UNSPECIFIED Status: Chronic Current Visit: No Annotation/Comment:: Hemoglobin today 7.5 posttransfusion. The patient has been anemic since January when he first presented with this chronic infection. Hemoglobin has almost consistently been below 10 and often below 8. The patient may benefit from Neupogen given that his infection is likely to be slow to resolve. I'm going to check red cell indices, reticulocyte count, iron studies and B12 and folate. We'll also follow sedimentation rate. (5) DVT prophylaxis SNOMED Code(s): 799893944, 083083344 Code(s): JVV9955 - Status: Acute Current Visit: Yes Annotation/Comment :: SCDs, restarted heparin today. (6) Gross hematuria SNOMED Code(s): 206437948 Code(s): R31.0 - GROSS HEMATURIA Status: Acute Current Visit: Yes - Problem List Review Problem List Initiated/Reviewed/Updated: Yes - My Orders Last 24 Hours: My Active Orders 05/27/17 16:31 Code Status [Resuscitation Status] Routine 05/29/17 05:00 FERRITIN [REF] Routine FOLATE [REF] Routine IRON AND IRON BINDING CAPACITY [REF] Routine RETIC AUTOMATED WITHOUT IRF [REF] Routine VITAMIN B12 [CHEM] Routine 05/29/17 05:11 ESR [SEDIMENTATION RATE MANUAL] [HEME] AM - Plan Plan:: 1. Admit to swing bed. 2.Patient wants to be a full code. 3. Heparin 5000 units subcutaneous 4. Oxycodone for pain. 5. Heart healthy diet. Okay for him to have ice cream per his request. 6. Continue the same medications as per Tristen. PT/OT. 7. Continue IV antibioti per Tristen. Daptomycin 552 mg every 24 hours. Rifampin 300 mg by mouth twice a day.
[2017-05-28] MEDS: Acetaminophen 325 MG Tab PO PRN (15:59)
[2017-05-28] MEDS: Terazosin 5 MG Cap PO SCH (21:11)
[2017-05-29] MEDS: Sodium Chloride 0.9% 10 ML Syringe FLUSH PRN ×2 (06:41→06:42)
[2017-05-29] MEDS: Heparin Sodium 10 Units/ML 5 ML Syringe FLUSH SCH ×2 (06:43→08:49)
[2017-05-29] MEDS: Allopurinol 100 MG Tab PO SCH (08:04)
[2017-05-29] MEDS: Cholecalciferol (Vitamin D3) 1,000 Unit Tab PO SCH (08:04)
[2017-05-29] MEDS: Metoprolol Succinate 100 MG Tab.ER PO SCH (08:04)
[2017-05-29] MEDS: Finasteride 5 MG Tab PO SCH (08:05)
[2017-05-29] MEDS: Sulfamethoxazole/Trimethoprim 800-160 MG Tab PO SCH ×2 (08:05→20:46)
[2017-05-29] MEDS: Polyethylene Glycol 3350 Powder 17 GM Packet PO SCH ×2 (08:05→08:10)
[2017-05-29] MEDS: Rifampin 300 MG Cap PO SCH ×2 (08:05→20:46)
[2017-05-29] MEDS: Ferrous Sulfate 325 MG Tab PO SCH ×2 (08:06→20:46)
[2017-05-29] MEDS: Docusate Sodium 100 MG Cap PO SCH ×2 (08:06→20:45)
[2017-05-29] MEDS: Heparin Sodium 5,000 Units/ML Vial SUBCUT SCH ×2 (08:08→20:49)
[2017-05-29] MEDS: SODIUM CHLORIDE 0.9% IV SCH (08:49)
[2017-05-29] MEDS: DAPTOMYCIN IV SCH (08:49)
[2017-05-29] MEDS: oxyCODONE 5 MG Tab PO PRN (12:47)
[2017-05-29] MEDS: Terazosin 5 MG Cap PO SCH (20:48)
[2017-05-30] MEDS: oxyCODONE 5 MG Tab PO PRN ×3 (08:43→17:22)
[2017-05-30] MEDS: Finasteride 5 MG Tab PO SCH (08:44)
[2017-05-30] MEDS: Cholecalciferol (Vitamin D3) 1,000 Unit Tab PO SCH (08:44)
[2017-05-30] MEDS: Metoprolol Succinate 100 MG Tab.ER PO SCH (08:44)
[2017-05-30] MEDS: Allopurinol 100 MG Tab PO SCH (08:44)
[2017-05-30] MEDS: Ferrous Sulfate 325 MG Tab PO SCH ×2 (08:45→21:05)
[2017-05-30] MEDS: Docusate Sodium 100 MG Cap PO SCH ×2 (08:45→21:05)
[2017-05-30] MEDS: Sulfamethoxazole/Trimethoprim 800-160 MG Tab PO SCH ×2 (08:45→21:05)
[2017-05-30] MEDS: Rifampin 300 MG Cap PO SCH ×2 (08:45→21:05)
[2017-05-30] MEDS: Heparin Sodium 5,000 Units/ML Vial SUBCUT SCH ×3 (08:47→21:36)
[2017-05-30] MEDS: Polyethylene Glycol 3350 Powder 17 GM Packet PO SCH (08:52)
[2017-05-30] MEDS: DAPTOMYCIN IV SCH (08:53)
[2017-05-30] MEDS: SODIUM CHLORIDE 0.9% IV SCH (08:53)
[2017-05-30] MEDS: Sodium Chloride 0.9% 10 ML Syringe FLUSH PRN ×3 (08:53→21:06)
[2017-05-30] MEDS: Heparin Sodium 10 Units/ML 5 ML Syringe FLUSH SCH (08:57)
[2017-05-30] MEDS: Digoxin 125 MCG Tab PO SCH (13:06)
--- NOTE | 2017-05-30 14:17 | PCM.PN ---
- General Info Date of Service: 05/30/17 Subjective Update: Doing well. No CP, no SOB, no N/V/D. Enjoyed his outing to [place] yesterday and is looking forward to possible discharge next week. Working on how to get the IV daptomycin at home infused. Plan at this time is to have 1 week of home health to teach to give, and if at the end of that week she isn't comfortable, they can drive to [place] to have outpatient infusion daily. Required abx through 06/27/17. Ashanti removed from wound yesterday. - Patient Data Vitals - Most Recent: Last Vital Signs Temp 36.7 C 05/30/17 07:30 Pulse 104 H 05/30/17 13:06 Resp 24 H 05/30/17 07:30 BP 108/58 L 05/30/17 08:44 Pulse Ox 92 L 05/30/17 07:30 Weight - Most Recent: 92.17 kg Med Orders - Current: Current Medications Acetaminophen (Tylenol) 650 mg PO Q4H PRN PRN Reason: Pain Last Admin: 05/28/17 15:59 Dose: 650 mg Allopurinol (Zyloprim) 100 mg PO DAILY [facility] Last Admin: 05/30/17 08:44 Dose: 100 mg Bisacodyl (Dulcolax) 5 mg PO BID PRN PRN Reason: Constipation Bisacodyl (Dulcolax) 10 mg RECTAL DAILY PRN PRN Reason: Constipation Cholecalciferol (Vitamin D3) 1,000 units PO DAILY [facility] Last Admin: 05/30/17 08:44 Dose: 1,000 units Digoxin (Lanoxin) 125 mcg PO MOWEFR@1400 [facility] Last Admin: 05/30/17 13:06 Dose: 125 mcg Docusate Sodium (Colace) 100 mg PO BID [facility] Last Admin: 05/30/17 08:45 Dose: 100 mg Ferrous Sulfate (Ferrous Sulfate) 325 mg PO BID [facility] Last Admin: 05/30/17 08:45 Dose: 325 mg Finasteride (Proscar) 5 mg PO DAILY [facility] Last Admin: 05/30/17 08:44 Dose: 5 mg Heparin Sodium (Porcine) (Heparin Sodium) 5,000 units SUBCUT Q12H [facility] Stop: 06/09/17 09:01 Last Admin: 05/30/17 08:47 Dose: 5,000 units Heparin Sodium (Porcine) (Heparin Lock Flush 100 Units/Ml) 300 units FLUSH BID@ 0915,2100 [facility] Daptomycin 552 mg/ Sodium (Chloride) 11.04 mls @ 300 mls/hr IV Q24H [facility] Stop: 06/27/17 09:01 Last Admin: 05/30/17 08:53 Dose: 300 mls/hr Lisinopril (Prinivil) 40 mg PO DAILY [facility] Last Admin: 05/30/17 08:44 Dose: 40 mg Magnesium Hydroxide (Milk Of Magnesia) 30 ml PO DAILY PRN PRN Reason: Constipation Metoprolol Succinate (Toprol Xl) 100 mg PO DAILY [facility] Last Admin: 05/30/17 08:44 Dose: 100 mg Oxycodone HCl (Oxycodone) 5 mg PO Q4H PRN PRN Reason: Pain Last Admin: 05/30/17 13:04 Dose: 5 mg Polyethylene Glycol (Miralax) 17 gm PO DAILY [facility] Last Admin: 05/30/17 08:52 Dose: Not Given Rifampin (Rifampin) 300 mg PO BID [facility] Last Admin: 05/30/17 08:45 Dose: 300 mg Sodium Chloride ([place] Nasal [place]) 0 ml NASBOTH BID PRN PRN Reason: Congestion Sodium Chloride (Saline Flush) 10 ml FLUSH ASDIRECTED PRN PRN Reason: flush med Last Admin: 05/30/17 08:57 Dose: 10 ml Terazosin HCl (Hytrin) 5 mg PO BEDTIME [facility] Last Admin: 05/29/17 20:48 Dose: 5 mg Trimethoprim/Sulfamethoxazole (Septra Ds) 1 tab PO BID [facility] Stop: 06/01/17 21:01 Last Admin: 05/30/17 08:45 Dose: 1 tab Discontinued Medications Allopurinol (Zyloprim) 300 mg PO DAILY [facility] Last Admin: 05/26/17 09:21 Dose: 300 mg Aspirin (Halfprin) 81 mg PO DAILY [facility] Last Admin: 05/27/17 08:41 Dose: 81 mg Diphenhydramine HCl (Benadryl) 25 mg PO ONETIME ONE Stop: 05/27/17 07:36 Last Admin: 05/27/17 09:51 Dose: 25 mg Furosemide (Lasix) 20 mg IVPUSH NOW ONE Stop: 05/27/17 07:36 Last Admin: 05/27/17 13:46 Dose: 20 mg Heparin Sodium (Porcine) (Heparin Lock Flush 100 Units/Ml) 300 units FLUSH BID [facility] Last Admin: 05/24/17 00:40 Dose: Not Given Heparin Sodium (Porcine) (Heparin Lock Flush 10 Units/Ml) 50 unit FLUSH DAILY [facility] Last Admin: 05/30/17 08:57 Dose: 50 unit Hydrochlorothiazide (Hydrochlorothiazide) 25 mg PO DAILY [facility] Last Admin: 05/25/17 08:59 Dose: 25 mg Sodium Chloride (Normal Saline) 1,000 mls @ 999 mls/hr IV ASDIRECTED [facility] Stop: 05/27/17 09:01 Sodium Chloride (Normal Saline) 1,000 mls @ 100 mls/hr IV ASDIRECTED [facility] Stop: 05/26/17 19:14 Last Admin: 05/26/17 09:44 Dose: 100 mls/hr - Exam General: Alert, Oriented, Cooperative, No Acute Distress HEENT: Pupils Equal, Pupils Reactive Neck: Supple Extremities: Pedal Edema (trace) Wound/Incisions: Healing Well (shows some dried blood but no active oozing or drainage on the dressing. Wound itself is closed with no induration or redness. ) - Problem List & Annotations (1) Prosthetic joint infection SNOMED Code(s): 815470173 Code(s): T84.50XA - INFECT/INFLM REACTION DUE TO UNSP INT JOINT PROSTH, INIT Status: Acute Priority: High Current Visit: No Annotation/Comment:: Status post replacement 05/16/17. Continue PT/OT. Pain management as needed. Continue daptomycin and rifampin through June 27. (2) MRSA (methicillin resistant Staphylococcus aureus) SNOMED Code(s): 508206379 Code(s): A49.02 - METHICILLIN RESIS STAPH INFECTION, UNSP SITE Status: Chronic Current Visit: No Annotation/Comment:: From prosthetic joint. Currently on daptomycin IV every 24 hours and rifampin 300 mg by mouth twice a day. Will require long-term therapy through the end of June. (3) Atrial fibrillation SNOMED Code(s): 03567968 Code(s): I48.91 - UNSPECIFIED ATRIAL FIBRILLATION Status: Chronic Current Visit: No Qualifiers: Annotation/Comment:: On digoxin for rate control as well as Toprol-XL. Heart rate in the 90s. Given patient's current anemia after surgery, reasonable control. Patient has not been anticoagulated for this since January because of bleeding and anemia. (4) Chronic anemia SNOMED Code(s): 951866019 Code(s): D64.9 - ANEMIA, UNSPECIFIED Status: Chronic Current Visit: No Annotation/Comment:: Anemia of chronic disease studies pending. ESR > 140 which is sufficient to suppress bone marrow. Couldn't find a previous done in [facility] for comparison. Question if patient would benefit from Epogen. Once lab is back, will call hematology and discuss with them. (5) DVT prophylaxis SNOMED Code(s): 862977455, 060905441 Code(s): CJE8601 - Status: Acute Current Visit: Yes Annotation/Comment :: SCDs, heparin BID. Although the plan was for the patient to have 30 days of SQ heparin, they will not do shots at home when he is discharged next week. The recently published EPCAT II trial showed that aspirin is non-inferior at 81 mg daily (more than 5 days post-op) to rivaroxaban which I feel is good evidence to support that this patient can go off his heparin and start a baby aspirin daily at discharge to complete his 30 days of anticoagulation. Patient was previously on a baby aspirin daily but we stopped it with his gross hematuria, and if he re-bleeds would suggest he stop anticoagulants as at that point he would be almost 3 weeks out from surgery. (6) Gross hematuria SNOMED Code(s): 594144457 Code(s): R31.0 - GROSS HEMATURIA Status: Acute Current Visit: Yes Annotation/Comment:: Resolved. Patient back on BID heparin. - Problem List Review Problem List Initiated/Reviewed/Updated: Yes - My Orders Last 24 Hours: My Active Orders 05/30/17 21:00 Heparin Sodium [Heparin Lock Flush 100 Units/ML] 300 units FLUSH BID@0915, 209905/31/17 05:11 BASIC METABOLIC PANEL,BMP [CHEM] AM CBC WITH AUTO DIFF [HEME] AM - Plan Plan:: 1. Admit to swing bed. 2.Patient wants to be a full code. 3. Heparin 5000 units subcutaneous 4. Oxycodone for pain. 5. Heart healthy diet. Okay for him to have ice cream per his request. 6. Continue the same medications as per Tristen. PT/OT. 7. Continue IV antibioti per Tristen. Daptomycin 552 mg every 24 hours. Rifampin 300 mg by mouth twice a day.
[2017-05-30] MEDS: Terazosin 5 MG Cap PO SCH (21:07)
[2017-05-30 21:12] LABS: UNSATURATED IRON BIND CAPACITY 103 ug/dL (112-347)
[2017-05-31] MEDS: Sodium Chloride 0.9% 10 ML Syringe FLUSH PRN (05:38)
[2017-05-31] MEDS ORDERED: Metoprolol Succinate 100 MG Tab.ER PO SCH (09:00)
[2017-05-31] MEDS: Ferrous Sulfate 325 MG Tab PO SCH ×2 (09:12→20:29)
[2017-05-31] MEDS: Docusate Sodium 100 MG Cap PO SCH ×2 (09:12→20:28)
[2017-05-31] MEDS: Digoxin 125 MCG Tab PO SCH (09:13)
[2017-05-31] MEDS: Heparin Sodium 5,000 Units/ML Vial SUBCUT SCH ×2 (09:13→20:29)
[2017-05-31] MEDS: Polyethylene Glycol 3350 Powder 17 GM Packet PO SCH (09:13)
[2017-05-31] MEDS: Finasteride 5 MG Tab PO SCH (09:14)
[2017-05-31] MEDS: Rifampin 300 MG Cap PO SCH ×2 (09:14→20:33)
[2017-05-31] MEDS: Sulfamethoxazole/Trimethoprim 800-160 MG Tab PO SCH ×2 (09:14→20:33)
[2017-05-31] MEDS: Metoprolol Succinate 50 MG Tab.ER PO SCH (09:15)
[2017-05-31] MEDS: Allopurinol 100 MG Tab PO SCH (09:15)
[2017-05-31] MEDS: Cholecalciferol (Vitamin D3) 1,000 Unit Tab PO SCH (09:15)
[2017-05-31] MEDS: DAPTOMYCIN IVPUSH SCH (09:23)
[2017-05-31] MEDS: SODIUM CHLORIDE 0.9% IVPUSH SCH (09:23)
--- NOTE | 2017-05-31 11:21 | PCM.PN ---
- General Info Date of Service: 05/31/17 Subjective Update: Patient doing well. He does have a little congestion and a cough which is productive for clear phlegm. He thinks he might have caught a cold while he was up in [place] 2 days ago. Functional Status: Reports: Pain Controlled, Tolerating Diet, Ambulating, Urinating (No blood.) - Patient Data Vitals - Most Recent: Last Vital Signs Temp 36.6 C 05/31/17 08:00 Pulse 109 H 05/31/17 09:15 Resp 18 05/31/17 08:00 BP 114/69 05/31/17 09:15 Pulse Ox 90 L 05/31/17 08:00 Weight - Most Recent: 90.401 kg Lab Results Last 24 Hours: Laboratory Results - last 24 hr 05/29/17 05/29/17 05/29/17 Range/Units 06:35 06:35 06:35 WBC (4.5-12.0) X10-3/uL RBC (4.30-5.75) x10(6)uL Hgb (11.5-15.5) g/dL Hct (30.0-51.3) % MCV (80-96) fL MCH (27.7-33.6) pg MCHC (32.2-35.4) g/dL RDW (11.5-15.5) % Plt Count (125-369) X10(3)uL MPV (7.4-10.4) fL Neut % (Auto) (46-82) % Lymph % (Auto) (13-37) % [place] % (Auto) (4-12) % Eos % (Auto) (1.0-5.0) % Baso % (Auto) (0-2) % Reticulocyte % (Auto) 3.5 H (0.4-2.7) % Neut # (Auto) (1.6-8.3) # Lymph # (Auto) (0.6-5.0) # [place] # (Auto) (0.0-1.3) # Eos # (Auto) (0.0-0.8) # Baso # (Auto) (0.0-0.2) # Absolute Retic 85 (16-123) K/uL Sodium (135-145) mmol/L Potassium (3.5-5.3) mmol/L Chloride (100-110) mmol/L Carbon Dioxide (21-32) mmol/L BUN (7-18) mg/dL Creatinine (0.70-1.30) mg/dL Est Cr Clr Drug Dosing mL/min Estimated GFR (MDRD) (>60) BUN/Creatinine Ratio (9-20) Glucose (80-116) mg/dL Calcium (8.6-10.2) mg/dL Iron 62 (45-190) ug/dL TIBC 165 (157-537) ug/dL Iron Saturation 38 (15-55) % Unsaturated IBC 103 L (112-347) ug/dL Ferritin 2352 H (11-450) ng/mL Folate 8.4 (4.8-24.2) ng/mL 05/31/17 05/31/17 Range/Units 05:42 05:42 WBC 4.1 L (4.5-12.0) X10-3/uL RBC 2.46 L (4.30-5.75) x10(6)uL Hgb 7.3 L (11.5-15.5) g/dL Hct 22.4 L (30.0-51.3) % MCV 91.2 (80-96) fL MCH 29.9 (27.7-33.6) pg MCHC 32.7 (32.2-35.4) g/dL RDW 18.1 H (11.5-15.5) % Plt Count 283 (125-369) X10(3)uL MPV 6.7 L (7.4-10.4) fL Neut % (Auto) 68.8 (46-82) % Lymph % (Auto) 10.1 L (13-37) % [place] % (Auto) 10.4 (4-12) % Eos % (Auto) 10 H (1.0-5.0) % Baso % (Auto) 0 (0-2) % Reticulocyte % (Auto) (0.4-2.7) % Neut # (Auto) 2.9 (1.6-8.3) # Lymph # (Auto) 0.4 L (0.6-5.0) # [place] # (Auto) 0.4 (0.0-1.3) # Eos # (Auto) 0.4 (0.0-0.8) # Baso # (Auto) 0.0 (0.0-0.2) # Absolute Retic (16-123) K/uL Sodium 134 L (135-145) mmol/L Potassium 4.7 (3.5-5.3) mmol/L Chloride 101 (100-110) mmol/L Carbon Dioxide 25 (21-32) mmol/L BUN 45 H (7-18) mg/dL Creatinine 1.8 H (0.70-1.30) mg/dL Est Cr Clr Drug Dosing 32.11 mL/min Estimated GFR (MDRD) 36 L (>60) BUN/Creatinine Ratio 25.0 H (9-20) Glucose 85 (80-116) mg/dL Calcium 8.9 (8.6-10.2) mg/dL Iron (45-190) ug/dL TIBC (157-537) ug/dL Iron Saturation (15-55) % Unsaturated IBC (112-347) ug/dL Ferritin (11-450) ng/mL Folate (4.8-24.2) ng/mL Med Orders - Current: Current Medications Acetaminophen (Tylenol) 650 mg PO Q4H PRN PRN Reason: Pain Last Admin: 05/28/17 15:59 Dose: 650 mg Allopurinol (Zyloprim) 100 mg PO DAILY [facility] Last Admin: 05/31/17 09:15 Dose: 100 mg Bisacodyl (Dulcolax) 5 mg PO BID PRN PRN Reason: Constipation Bisacodyl (Dulcolax) 10 mg RECTAL DAILY PRN PRN Reason: Constipation Cholecalciferol (Vitamin D3) 1,000 units PO DAILY [facility] Last Admin: 05/31/17 09:15 Dose: 1,000 units Digoxin (Lanoxin) 62.5 mcg PO DAILY [facility] Last Admin: 05/31/17 09:13 Dose: 62.5 mcg Docusate Sodium (Colace) 100 mg PO BID [facility] Last Admin: 05/31/17 09:12 Dose: 100 mg Ferrous Sulfate (Ferrous Sulfate) 325 mg PO BID [facility] Last Admin: 05/31/17 09:12 Dose: 325 mg Finasteride (Proscar) 5 mg PO DAILY [facility] Last Admin: 05/31/17 09:14 Dose: 5 mg Heparin Sodium (Porcine) (Heparin Sodium) 5,000 units SUBCUT Q12H [facility] Stop: 06/09/17 09:01 Last Admin: 05/31/17 09:13 Dose: 5,000 units Heparin Sodium (Porcine) (Heparin Lock Flush 100 Units/Ml) 300 units FLUSH BID@ 0915,2100 [facility] Last Admin: 05/31/17 09:23 Dose: 300 units Daptomycin 552 mg/ Sodium (Chloride) 11.04 mls @ 300 mls/hr IVPUSH Q24H [facility] Stop: 06/27/17 12:00 Last Admin: 05/31/17 09:23 Dose: 300 mls/hr Lisinopril (Prinivil) 40 mg PO DAILY [facility] Last Admin: 05/31/17 09:14 Dose: 40 mg Magnesium Hydroxide (Milk Of Magnesia) 30 ml PO DAILY PRN PRN Reason: Constipation Metoprolol Succinate (Toprol Xl) 50 mg PO DAILY [facility] Last Admin: 05/31/17 09:15 Dose: 50 mg Oxycodone HCl (Oxycodone) 5 mg PO Q4H PRN PRN Reason: Pain Last Admin: 05/30/17 17:22 Dose: 5 mg Polyethylene Glycol (Miralax) 17 gm PO DAILY [facility] Last Admin: 05/31/17 09:13 Dose: 17 gm Rifampin (Rifampin) 300 mg PO BID [facility] Last Admin: 05/31/17 09:14 Dose: 300 mg Sodium Chloride ([place] Nasal [place]) 0 ml NASBOTH BID PRN PRN Reason: Congestion Sodium Chloride (Saline Flush) 10 ml FLUSH ASDIRECTED PRN PRN Reason: flush med Last Admin: 05/31/17 05:38 Dose: 10 ml Terazosin HCl (Hytrin) 5 mg PO BEDTIME [facility] Last Admin: 05/30/17 21:07 Dose: 5 mg Trimethoprim/Sulfamethoxazole (Septra Ds) 1 tab PO BID [facility] Stop: 06/01/17 21:01 Last Admin: 05/31/17 09:14 Dose: 1 tab Discontinued Medications Allopurinol (Zyloprim) 300 mg PO DAILY [facility] Last Admin: 05/26/17 09:21 Dose: 300 mg Aspirin (Halfprin) 81 mg PO DAILY [facility] Last Admin: 05/27/17 08:41 Dose: 81 mg Digoxin (Lanoxin) 125 mcg PO MOWEFR@1400 [facility] Last Admin: 05/30/17 13:06 Dose: 125 mcg Diphenhydramine HCl (Benadryl) 25 mg PO ONETIME ONE Stop: 05/27/17 07:36 Last Admin: 05/27/17 09:51 Dose: 25 mg Furosemide (Lasix) 20 mg IVPUSH NOW ONE Stop: 05/27/17 07:36 Last Admin: 05/27/17 13:46 Dose: 20 mg Heparin Sodium (Porcine) (Heparin Lock Flush 100 Units/Ml) 300 units FLUSH BID [facility] Last Admin: 05/24/17 00:40 Dose: Not Given Heparin Sodium (Porcine) (Heparin Lock Flush 10 Units/Ml) 50 unit FLUSH DAILY [facility] Last Admin: 05/30/17 08:57 Dose: 50 unit Hydrochlorothiazide (Hydrochlorothiazide) 25 mg PO DAILY [facility] Last Admin: 05/25/17 08:59 Dose: 25 mg Daptomycin 552 mg/ Sodium (Chloride) 11.04 mls @ 300 mls/hr IV Q24H [facility] Stop: 06/27/17 09:01 Last Admin: 05/30/17 08:53 Dose: 300 mls/hr Sodium Chloride (Normal Saline) 1,000 mls @ 999 mls/hr IV ASDIRECTED [facility] Stop: 05/27/17 09:01 Sodium Chloride (Normal Saline) 1,000 mls @ 100 mls/hr IV ASDIRECTED [facility] Stop: 05/26/17 19:14 Last Admin: 05/26/17 09:44 Dose: 100 mls/hr Metoprolol Succinate (Toprol Xl) 100 mg PO DAILY [facility] Last Admin: 05/30/17 08:44 Dose: 100 mg - Exam Quality Assessment: Central Line/PICC, DVT Prophylaxis General: Alert, Oriented, Cooperative, No Acute Distress HEENT: Pupils Equal, Pupils Reactive Neck: Supple - Problem List & Annotations (1) Prosthetic joint infection SNOMED Code(s): 590952919 Code(s): T84.50XA - INFECT/INFLM REACTION DUE TO UNSP INT JOINT PROSTH, INIT Status: Acute Priority: High Current Visit: No Annotation/Comment:: Status post replacement 05/16/17. Continue PT/OT. Pain management as needed. Continue daptomycin and rifampin through June 27. (2) MRSA (methicillin resistant Staphylococcus aureus) SNOMED Code(s): 843789062 Code(s): A49.02 - METHICILLIN RESIS STAPH INFECTION, UNSP SITE Status: Chronic Current Visit: No Annotation/Comment:: From prosthetic joint. Currently on daptomycin IV every 24 hours and rifampin 300 mg by mouth twice a day. Will require long-term therapy through June 27. (3) Atrial fibrillation SNOMED Code(s): 92040413 Code(s): I48.91 - UNSPECIFIED ATRIAL FIBRILLATION Status: Chronic Current Visit: No Qualifiers: Annotation/Comment:: On digoxin for rate control as well as Toprol-XL. Heart rate increated to high 90s-low 100 range. Patient has not been anticoagulated for this since January because of bleeding and anemia. Digoxin changed to 62.5 mg daily and metoprolol decreased to 50 mg daily due to marginal blood pressures. Recheck digoxin level ordered for 06/03. (4) Chronic anemia SNOMED Code(s): 844143603 Code(s): D64.9 - ANEMIA, UNSPECIFIED Status: Chronic Current Visit: No Annotation/Comment:: Anemia of chronic disease. ESR > 140 which is sufficient to suppress bone marrow. B12 576, Ferritin 2352, Folate 8.4, Iron 38, TIBC 165 , Retic count 3.5%. Per discussion with Dr. Harrington from [facility], patient would benefit from Epogen injections with similar management as other chronic disease anemias. PCP Dr. Montes notified as this will need to be set up as an outpatient on discharge. (5) DVT prophylaxis SNOMED Code(s): 591874494, 625661569 Code(s): OTT6914 - Status: Acute Current Visit: Yes Annotation/Comment :: SCDs, heparin BID. Although the plan was for the patient to have 30 days of SQ heparin, they will not do shots at home when he is discharged next week. The recently published EPCAT II trial showed that aspirin is non-inferior at 81 mg daily (more than 5 days post-op) to rivaroxaban which I feel is good evidence to support that this patient can go off his heparin and start a baby aspirin daily at discharge to complete his 30 days of anticoagulation. Patient was previously on a baby aspirin daily but we stopped it with his gross hematuria, and if he re-bleeds would suggest he stop anticoagulants as at that point he would be almost 3 weeks out from surgery. Patient has low threshhold for catastrophic bleed given his low hemoglobin at baseline. (6) Gross hematuria SNOMED Code(s): 233819536 Code(s): R31.0 - GROSS HEMATURIA Status: Acute Current Visit: Yes Annotation/Comment:: Resolved. Patient back on BID heparin. - Problem List Review Problem List Initiated/Reviewed/Updated: Yes - My Orders Last 24 Hours: My Active Orders 05/30/17 21:00 Heparin Sodium [Heparin Lock Flush 100 Units/ML] 300 units FLUSH BID@0915, 2100 05/31/17 09:00 Digoxin [Lanoxin] 62.5 mcg PO DAILY Metoprolol Succinate [Toprol XL] 50 mg PO DAILY 06/03/17 05:00 DIGOXIN [CHEM] Routine - Plan Plan:: 1. Admit to swing bed. 2.Patient wants to be a full code. 3. Heparin 5000 units subcutaneous 4. Oxycodone for pain. 5. Heart healthy diet. Okay for him to have ice cream per his request. 6. Continue the same medications as per Tristen. PT/OT. 7. Continue IV antibioti per Tristen. Daptomycin 552 mg every 24 hours. Rifampin 300 mg by mouth twice a day.
[2017-05-31] MEDS: Terazosin 5 MG Cap PO SCH (20:33)
[2017-06-01] MEDS: Docusate Sodium 100 MG Cap PO SCH ×2 (08:27→20:44)
[2017-06-01] MEDS: Ferrous Sulfate 325 MG Tab PO SCH ×2 (08:27→20:41)
[2017-06-01] MEDS: oxyCODONE 5 MG Tab PO PRN (08:28)
[2017-06-01] MEDS: Metoprolol Succinate 50 MG Tab.ER PO SCH (08:28)
[2017-06-01] MEDS: Cholecalciferol (Vitamin D3) 1,000 Unit Tab PO SCH (08:29)
[2017-06-01] MEDS: Sulfamethoxazole/Trimethoprim 800-160 MG Tab PO SCH ×2 (08:29→20:41)
[2017-06-01] MEDS: Allopurinol 100 MG Tab PO SCH (08:29)
[2017-06-01] MEDS: Finasteride 5 MG Tab PO SCH (08:30)
[2017-06-01] MEDS: DAPTOMYCIN IVPUSH SCH (08:31)
[2017-06-01] MEDS: Heparin Sodium 5,000 Units/ML Vial SUBCUT SCH ×2 (08:31→20:44)
[2017-06-01] MEDS: Sodium Chloride 0.9% 10 ML Syringe FLUSH PRN ×2 (08:31→08:35)
[2017-06-01] MEDS: SODIUM CHLORIDE 0.9% IVPUSH SCH (08:31)
[2017-06-01] MEDS: Polyethylene Glycol 3350 Powder 17 GM Packet PO SCH (08:40)
[2017-06-01] MEDS: Digoxin 125 MCG Tab PO SCH (08:40)
[2017-06-01] MEDS: Rifampin 300 MG Cap PO SCH ×2 (08:44→20:41)
[2017-06-01] MEDS: Terazosin 5 MG Cap PO SCH (20:41)
[2017-06-02] MEDS: oxyCODONE 5 MG Tab PO PRN ×2 (09:02→12:43)
[2017-06-02] MEDS: SODIUM CHLORIDE 0.9% IVPUSH SCH (09:06)
[2017-06-02] MEDS: Sodium Chloride 0.9% 10 ML Syringe FLUSH PRN ×2 (09:06→09:10)
[2017-06-02] MEDS: DAPTOMYCIN IVPUSH SCH (09:06)
[2017-06-02] MEDS: Digoxin 125 MCG Tab PO SCH (09:09)
[2017-06-02] MEDS: Metoprolol Succinate 50 MG Tab.ER PO SCH (09:09)
[2017-06-02] MEDS: Rifampin 300 MG Cap PO SCH ×2 (09:10→20:44)
[2017-06-02] MEDS: Finasteride 5 MG Tab PO SCH (09:11)
[2017-06-02] MEDS: Docusate Sodium 100 MG Cap PO SCH ×2 (09:11→20:43)
[2017-06-02] MEDS: Cholecalciferol (Vitamin D3) 1,000 Unit Tab PO SCH (09:11)
[2017-06-02] MEDS: Heparin Sodium 5,000 Units/ML Vial SUBCUT SCH ×2 (09:11→20:43)
[2017-06-02] MEDS: Ferrous Sulfate 325 MG Tab PO SCH ×2 (09:11→20:43)
[2017-06-02] MEDS: Polyethylene Glycol 3350 Powder 17 GM Packet PO SCH (09:12)
[2017-06-02] MEDS: Allopurinol 100 MG Tab PO SCH (09:12)
[2017-06-02] MEDS: Acetaminophen 325 MG Tab PO PRN (20:41)
[2017-06-02] MEDS: Terazosin 5 MG Cap PO SCH (20:43)
[2017-06-03] MEDS: Heparin Sodium 5,000 Units/ML Vial SUBCUT SCH ×2 (09:10→21:13)
[2017-06-03] MEDS: Sodium Chloride 0.9% 10 ML Syringe FLUSH PRN ×3 (09:11→10:15)
[2017-06-03] MEDS: DAPTOMYCIN IVPUSH SCH (09:12)
[2017-06-03] MEDS: SODIUM CHLORIDE 0.9% IVPUSH SCH (09:12)
[2017-06-03] MEDS: oxyCODONE 5 MG Tab PO PRN ×2 (09:13→21:09)
[2017-06-03] MEDS: Ferrous Sulfate 325 MG Tab PO SCH ×2 (09:14→21:13)
[2017-06-03] MEDS: Docusate Sodium 100 MG Cap PO SCH ×2 (09:14→21:12)
[2017-06-03] MEDS: Finasteride 5 MG Tab PO SCH (09:14)
[2017-06-03] MEDS: Allopurinol 100 MG Tab PO SCH (09:14)
[2017-06-03] MEDS: Cholecalciferol (Vitamin D3) 1,000 Unit Tab PO SCH (09:15)
[2017-06-03] MEDS: Digoxin 125 MCG Tab PO SCH (09:15)
[2017-06-03] MEDS: Rifampin 300 MG Cap PO SCH ×2 (09:16→21:15)
[2017-06-03] MEDS: Polyethylene Glycol 3350 Powder 17 GM Packet PO SCH (09:16)
--- NOTE | 2017-06-03 09:16 | PCM.PN ---
- General Info Date of Service: 06/03/17 Subjective Update: Pt admitted for MRSA infection.Noted to have low BPS. Hemoglobin stable Functional Status: Reports: Pain Controlled - Review of Systems General: Reports: No Symptoms HEENT: Reports: No Symptoms Pulmonary: Reports: No Symptoms Neurological: Reports: No Symptoms Psychiatric: Reports: No Symptoms - Patient Data Vitals - Most Recent: Last Vital Signs Temp 97.6 F 06/02/17 09:00 Pulse 101 H 06/02/17 09:09 Resp 18 06/02/17 09:00 BP 95/56 L 06/02/17 20:43 Pulse Ox 90 L 06/02/17 09:00 Weight - Most Recent: 90.401 kg Lab Results Last 24 Hours: Laboratory Results - last 24 hr 06/03/17 Range/Units 06:15 Digoxin 0.3 L (0.9-2.0) ng/mL Med Orders - Current: Current Medications Acetaminophen (Tylenol) 650 mg PO Q4H PRN PRN Reason: Pain Last Admin: 06/02/17 20:41 Dose: 650 mg Allopurinol (Zyloprim) 100 mg PO DAILY [facility] Last Admin: 06/02/17 09:12 Dose: 100 mg Bisacodyl (Dulcolax) 5 mg PO BID PRN PRN Reason: Constipation Bisacodyl (Dulcolax) 10 mg RECTAL DAILY PRN PRN Reason: Constipation Cholecalciferol (Vitamin D3) 1,000 units PO DAILY [facility] Last Admin: 06/02/17 09:11 Dose: 1,000 units Digoxin (Lanoxin) 62.5 mcg PO DAILY [facility] Last Admin: 06/02/17 09:09 Dose: 62.5 mcg Docusate Sodium (Colace) 100 mg PO BID [facility] Last Admin: 06/02/17 20:43 Dose: 100 mg Ferrous Sulfate (Ferrous Sulfate) 325 mg PO BID [facility] Last Admin: 06/02/17 20:43 Dose: 325 mg Finasteride (Proscar) 5 mg PO DAILY [facility] Last Admin: 06/02/17 09:11 Dose: 5 mg Heparin Sodium (Porcine) (Heparin Sodium) 5,000 units SUBCUT Q12H [facility] Stop: 06/09/17 09:01 Last Admin: 06/03/17 09:10 Dose: 5,000 units Heparin Sodium (Porcine) (Heparin Lock Flush 100 Units/Ml) 300 units FLUSH BID@ 0915,2100 [facility] Last Admin: 06/03/17 06:13 Dose: 300 units Daptomycin 552 mg/ Sodium (Chloride) 11.04 mls @ 300 mls/hr IVPUSH Q24H [facility] Stop: 06/27/17 12:00 Last Admin: 06/03/17 09:12 Dose: 300 mls/hr Magnesium Hydroxide (Milk Of Magnesia) 30 ml PO DAILY PRN PRN Reason: Constipation Metoprolol Succinate (Toprol Xl) 50 mg PO DAILY [facility] Last Admin: 06/02/17 09:09 Dose: 50 mg Oxycodone HCl (Oxycodone) 5 mg PO Q4H PRN PRN Reason: Pain Last Admin: 06/02/17 12:43 Dose: 5 mg Polyethylene Glycol (Miralax) 17 gm PO DAILY [facility] Last Admin: 06/02/17 09:12 Dose: Not Given Rifampin (Rifampin) 300 mg PO BID [facility] Last Admin: 06/02/17 20:44 Dose: 300 mg Sodium Chloride ([place] Nasal Deep Water) 0 ml NASBOTH BID PRN PRN Reason: Congestion Sodium Chloride (Saline Flush) 10 ml FLUSH ASDIRECTED PRN PRN Reason: flush med Last Admin: 06/03/17 09:11 Dose: 10 ml Terazosin HCl (Hytrin) 5 mg PO BEDTIME [facility] Last Admin: 06/02/17 20:43 Dose: 5 mg Discontinued Medications Allopurinol (Zyloprim) 300 mg PO DAILY [facility] Last Admin: 05/26/17 09:21 Dose: 300 mg Aspirin (Halfprin) 81 mg PO DAILY [facility] Last Admin: 05/27/17 08:41 Dose: 81 mg Digoxin (Lanoxin) 125 mcg PO MOWEFR@1400 [facility] Last Admin: 05/30/17 13:06 Dose: 125 mcg Diphenhydramine HCl (Benadryl) 25 mg PO ONETIME ONE Stop: 05/27/17 07:36 Last Admin: 05/27/17 09:51 Dose: 25 mg Furosemide (Lasix) 20 mg IVPUSH NOW ONE Stop: 05/27/17 07:36 Last Admin: 05/27/17 13:46 Dose: 20 mg Heparin Sodium (Porcine) (Heparin Lock Flush 100 Units/Ml) 300 units FLUSH BID [facility] Last Admin: 05/24/17 00:40 Dose: Not Given Heparin Sodium (Porcine) (Heparin Lock Flush 10 Units/Ml) 50 unit FLUSH DAILY [facility] Last Admin: 05/30/17 08:57 Dose: 50 unit Hydrochlorothiazide (Hydrochlorothiazide) 25 mg PO DAILY [facility] Last Admin: 05/25/17 08:59 Dose: 25 mg Daptomycin 552 mg/ Sodium (Chloride) 11.04 mls @ 300 mls/hr IV Q24H [facility] Stop: 06/27/17 09:01 Last Admin: 05/30/17 08:53 Dose: 300 mls/hr Sodium Chloride (Normal Saline) 1,000 mls @ 999 mls/hr IV ASDIRECTED [facility] Stop: 05/27/17 09:01 Sodium Chloride (Normal Saline) 1,000 mls @ 100 mls/hr IV ASDIRECTED [facility] Stop: 05/26/17 19:14 Last Admin: 05/26/17 09:44 Dose: 100 mls/hr Lisinopril (Prinivil) 40 mg PO DAILY [facility] Last Admin: 06/02/17 09:10 Dose: 40 mg Metoprolol Succinate (Toprol Xl) 100 mg PO DAILY [facility] Last Admin: 05/30/17 08:44 Dose: 100 mg Trimethoprim/Sulfamethoxazole (Septra Ds) 1 tab PO BID [facility] Stop: 06/01/17 21:01 Last Admin: 06/01/17 20:41 Dose: 1 tab - Exam General: Alert Neck: Supple Lungs: Clear to Auscultation Cardiovascular: Irregular Rhythm, Murmurs - Problem List & Annotations (1) Atrial fibrillation SNOMED Code(s): 73002920 Code(s): I48.91 - UNSPECIFIED ATRIAL FIBRILLATION Status: Chronic Current Visit: No Qualifiers: Annotation/Comment:: On digoxin for rate control as well as Toprol-XL. Heart rate increated to high 90s-low 100 range. Patient has not been anticoagulated for this since January because of bleeding and anemia. Digoxin changed to 62.5 mg daily and metoprolol decreased to 50 mg daily due to marginal blood pressures. Recheck digoxin level ordered for 06/03. (2) Chronic anemia SNOMED Code(s): 139872738 Code(s): D64.9 - ANEMIA, UNSPECIFIED Status: Chronic Current Visit: No Annotation/Comment:: Anemia of chronic disease. ESR > 140 which is sufficient to suppress bone marrow. B12 576, Ferritin 2352, Folate 8.4, Iron 38, TIBC 165 , Retic count 3.5%. Per discussion with Dr. Harrington from [facility], patient would benefit from Epogen injections with similar management as other chronic disease anemias. PCP Dr. Montes notified as this will need to be set up as an outpatient on discharge. (3) Hypotension due to medication Status: Resolved Priority: High Current Visit: No (4) HTN (hypertension) SNOMED Code(s): 06177372 Code(s): I10 - ESSENTIAL (PRIMARY) HYPERTENSION Status: Acute Current Visit: Yes Qualifiers: Hypertension type: essential hypertension Qualified Code(s): I10 - Essential (primary) hypertension (5) Abscess SNOMED Code(s): 066763728 Code(s): L02.91 - CUTANEOUS ABSCESS, UNSPECIFIED Status: Acute Current Visit: Yes (6) History of arthroplasty of left hip SNOMED Code(s): 851134306 Code(s): Z96.642 - PRESENCE OF LEFT ARTIFICIAL HIP JOINT Status: Acute Current Visit: Yes (7) Prosthetic joint infection SNOMED Code(s): 335198071 Code(s): T84.50XA - INFECT/INFLM REACTION DUE TO UNSP INT JOINT PROSTH, INIT Status: Acute Priority: High Current Visit: No Annotation/Comment:: Status post replacement 05/16/17. Continue PT/OT. Pain management as needed. Continue daptomycin and rifampin through June 27. - Problem List Review Problem List Initiated/Reviewed/Updated: Yes - My Orders Last 24 Hours: My Active Orders 06/02/17 11:00 Patient May [OM.PC] PER UNIT ROUTINE 06/03/17 09:15 BASIC METABOLIC PANEL,BMP [CHEM] Urgent CBC WITH AUTO DIFF [HEME] Urgent 06/03/17 11:00 Patient May [OM.PC] PER UNIT ROUTINE 06/04/17 11:00 Patient May [OM.PC] PER UNIT ROUTINE 06/05/17 11:00 Patient May [OM.PC] PER UNIT ROUTINE 06/06/17 11:00 Patient May [OM.PC] PER UNIT ROUTINE - Plan Plan:: Continue current therapies. Of discontinued the NORTH inhibitor due to low blood pressure.
[2017-06-03] MEDS: Metoprolol Succinate 50 MG Tab.ER PO SCH (10:10)
[2017-06-03] MEDS ORDERED: Heparin Sodium 10 Units/ML 5 ML Syringe FLUSH PRN (10:15)
[2017-06-03] MEDS: Terazosin 5 MG Cap PO SCH (21:12)
[2017-06-04] MEDS: Sodium Chloride 0.9% 10 ML Syringe FLUSH PRN ×3 (07:08→20:57)
[2017-06-04] MEDS: Ferrous Sulfate 325 MG Tab PO SCH ×2 (10:53→20:47)
[2017-06-04] MEDS: Docusate Sodium 100 MG Cap PO SCH ×2 (10:53→20:47)
[2017-06-04] MEDS: Heparin Sodium 5,000 Units/ML Vial SUBCUT SCH ×2 (10:53→20:49)
[2017-06-04] MEDS: Digoxin 125 MCG Tab PO SCH (10:54)
[2017-06-04] MEDS: Metoprolol Succinate 50 MG Tab.ER PO SCH (10:55)
[2017-06-04] MEDS: Finasteride 5 MG Tab PO SCH (10:55)
[2017-06-04] MEDS: Polyethylene Glycol 3350 Powder 17 GM Packet PO SCH (10:55)
[2017-06-04] MEDS: Rifampin 300 MG Cap PO SCH ×2 (10:55→20:51)
[2017-06-04] MEDS: Acetaminophen 325 MG Tab PO PRN (10:56)
[2017-06-04] MEDS: Cholecalciferol (Vitamin D3) 1,000 Unit Tab PO SCH (10:56)
[2017-06-04] MEDS: Allopurinol 100 MG Tab PO SCH (10:56)
[2017-06-04] MEDS: DAPTOMYCIN IVPUSH SCH (10:57)
[2017-06-04] MEDS: SODIUM CHLORIDE 0.9% IVPUSH SCH (10:57)
[2017-06-04] MEDS: Terazosin 5 MG Cap PO SCH (20:52)
[2017-06-05] MEDS: Heparin Sodium 5,000 Units/ML Vial SUBCUT SCH (08:07)
[2017-06-05] MEDS: Ferrous Sulfate 325 MG Tab PO SCH (08:07)
[2017-06-05] MEDS: Docusate Sodium 100 MG Cap PO SCH (08:07)
[2017-06-05] MEDS: Digoxin 125 MCG Tab PO SCH (08:08)
[2017-06-05] MEDS: Rifampin 300 MG Cap PO SCH (08:09)
[2017-06-05] MEDS: Finasteride 5 MG Tab PO SCH (08:09)
[2017-06-05] MEDS: Polyethylene Glycol 3350 Powder 17 GM Packet PO SCH (08:09)
[2017-06-05] MEDS: Metoprolol Succinate 50 MG Tab.ER PO SCH (08:10)
[2017-06-05] MEDS: Cholecalciferol (Vitamin D3) 1,000 Unit Tab PO SCH (08:11)
[2017-06-05] MEDS: Allopurinol 100 MG Tab PO SCH (08:11)
[2017-06-05] MEDS: Sodium Chloride 0.9% 10 ML Syringe FLUSH PRN ×2 (09:04→09:08)
[2017-06-05] MEDS: DAPTOMYCIN IVPUSH SCH (09:05)
[2017-06-05] MEDS: SODIUM CHLORIDE 0.9% IVPUSH SCH (09:05)
--- NOTE | 2017-06-06 09:28 | DISCH ---
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 DISCHARGE DIAGNOSES: 1. Prosthetic joint infection. 2. Methicillin-resistant Staphylococcus aureus. 3. Atrial fibrillation. 4. Gross hematuria. 5. Chronic anemia. PROCEDURES: None. CONSULTATIONS: Physical and Occupational Therapy. BRIEF HISTORY AND HOSPITAL COURSE: This 82-year-old male was admitted to [facility] hospital bed for rehab after left hip ORIF with removal of previous hardware due to an abscess with MRSA. He was admitted on daptomycin IV and rifampin. The infection was found to be due to MRSA. He also has chronic anemia, needing frequent blood transfusions. He has had AFib that cannot be treated with anticoagulants because of the anemia. He has hypertension that is stable. During the hospital stay, blood pressure was low. Therefore, metoprolol was decreased to 50 mg a day and digoxin was reduced to 62.5 mcg daily. Lisinopril and hydrochlorothiazide was discontinued altogether. Allopurinol was decreased to 100 mg a day. He underwent physical rehab strengthening and was ready for discharge today on, 06/05/2017. He will get outpatient Epogen. Dr. Montes, his PCP in [place] is aware. His discharge hemoglobin was 7.3. DISCHARGE MEDICATIONS: 1. Digoxin 62.5 mcg daily. 2. He also will go home on vitamin D3 one a day. 3. Daptomycin 552 mg IV every 24 hours. 4. Docusate 100 mg b.i.d. 5. Ferrous sulfate 325 mg b.i.d. 6. Finasteride 5 mg daily. 7. Magnesium hydroxide 30 mL daily p.r.n. 8. Metoprolol 50 mg a day. 9. Oxycodone 5 mg q.4 hours p.r.n. 10.Rifampin 300 mg p.o. b.i.d. 11.Terazosin 5 mg a day. 12.Dulcolax 5 mg p.o. b.i.d. p.r.n. FOLLOWUP: He has a followup appointment with his PCP next week and he also has Home Health to follow up with medications and he needs more physical therapy and occupational therapy at home. Please note that I spent more than 35 minutes in the discharge of the patient. /[id number] NIURKA/IZA
== END 2017-06-05 14:25 | disposition home health service (06) | DRG 949 ==
LOC: FB.MS 13:59
PROVIDERS: ADMIT Family Medicine; ATTEND Family Medicine
PROC: 30233N1 Transfusion of Nonautologous Red Blood Cells into Peripheral Vein, Percutaneous Approach (ICD-10-PCS; principal; 2017-05-27)
DX: T84.50XD Infection and inflammatory reaction due to unspecified internal joint prosthesis, subsequent encounter (principal); L02.214 Cutaneous abscess of groin; M86.8X8 Other osteomyelitis, other site; Z66 Do not resuscitate; B95.62 Methicillin resistant Staphylococcus aureus infection as the cause of diseases classified elsewhere; Z98.890 Other specified postprocedural states; D64.9 Anemia, unspecified; M19.90 Unspecified osteoarthritis, unspecified site; I48.91 Unspecified atrial fibrillation; R31.0 Gross hematuria; Z87.891 Personal history of nicotine dependence; Z96.642 Presence of left artificial hip joint; Z79.2 Long term (current) use of antibiotics; I95.2 Hypotension due to drugs; T50.995A Adverse effect of other drugs, medicaments and biological substances, initial encounter; Y92.239 Unspecified place in hospital as the place of occurrence of the external cause; Z79.82 Long term (current) use of aspirin
CPT/HCPCS: 36415; 36430; 80048; 80053; 80162; 81001; 82550; 82565; 82607; 82728; 82746; 83540; 83550; 84450; 84550; 85025; 85045; 85651; 86140; 86850; 86900; 86901; 86920; 86922; 87086; 97110-GO; 97110-GP; 97116-GP; 97161-GP; 97165-GO; 97530-GO; 97530-GP; 97535-GO; A9270-GY; J0878; J1642; J1644; J1940; J7040; J7050; P9016